=== PATIENT | male | born 1990 | race Caucasian/White ===

== ENCOUNTER 2016-10-16 19:57 | Emergency (ER) | payer MEDICAID ==
[~2016-10-16] VITALS: Ht 175.3 cm; Wt 127.0 kg
[~2016-10-16 19:57] MED LIST: CODE-54 PO; FAMO-119 PO; FAMO20TA5 PO; HYDR-1231 PO; LVT.025T PO; METH4TAB PO; ONDA8TAB13 PO; PRD20T PO; SCR1T PO; TRAM50TA2 PO
[2016-10-16] MEDS ORDERED: BACL10TA PO (20:22)
[2016-10-16] MEDS ORDERED: TRAM50TA2 PO (20:22)
[2016-10-16 20:37] LABS: BILIRUBIN,URINE NEGATIVE (NEGATIVE); KETONES,URINE NEGATIVE (NEGATIVE); LEUKOCYTE ESTERASE ,URINE NEGATIVE (NEGATIVE); NITRITE,URINE NEGATIVE (NEGATIVE); PH,URINE 5 (5-9); PROTEIN,URINE 2+ (NEGATIVE); UROBILINOGEN,URINE 1 MG/DL (NORMAL)
[2016-10-16 20:44] LABS: WBC,URINE RARE /HPF
[2016-10-16] MEDS ORDERED: KETOROLAC 60 MG/2 ML VIAL IM ONE (20:45)
[2016-10-16] MEDS ORDERED: ONDANSETRON 4 MG (ZOFRAN) ORAL DISSOLVE TAB SL ONE (20:45)
--- NOTE | 2016-10-16 21:11 | Diagnostic Imaging Report ---
INDICATION: Fever and bodyaches and cough PA and lateral chest obtained at 9:07 p.m. Heart and mediastinal silhouette are normal in appearance. The lungs are clear. There is no pneumothorax or pleural fluid. IMPRESSION: Negative chest. Dictated by: Dictated on workstation # [id number]
[2016-10-16] MEDS ORDERED: AZITHROMYCIN 250 MG TAB (ZITHROMAX) PO ONE (21:30)
[2016-10-16] MEDS ORDERED: AZIT250T5 PO (21:35)
[2016-10-16] MEDS ORDERED: ONDA4TAB8 SL (21:35)
--- NOTE | 2016-10-16 21:35 | ED General ---
General Chief Complaint: General Problems/Pain Stated Complaint: CP/SEIZURE LIKE ACTIVITY Nursing Triage Note: GENERALIZED BODY ACHE Nursing Sepsis Screen: No Definite Risk Source of Information: Patient Exam Limitations: No Limitations History of Present Illness Time Seen by Provider: 20:20 Initial Comments This 26-year-old young man presents to the emergency room with complaints of headache, diffuse myalgia, cough, fatigue, and emesis. Symptoms started upon waking this morning. He is chilled and febrile. He took some Tylenol around 11 :30 but no other medications. He normally takes Ultram and baclofen for chronic pain but forgot to take it this morning. He is coughing up some thick green purulent sputum. Allergies and Home Medications Allergies Coded Allergies: No Known Allergies (Verified Allergy, Unknown, 11/04/05) Home Medications Albuterol Sulfate 1 Puff Puff, 1-4 PUFF IH Q4H PRN for SHORTNESS OF BREATH, #1 For wheezing, uncontrolled cough, or shortness of breath. Please provide education. Prescribed by: ANKITA GARCIA on 10/16/167 Azithromycin 250 Mg Tablet, 250 MG PO DAILY, #4 Prescribed by: ANKITA GARCIA on 10/16/165 Baclofen 10 Mg Tablet, 1 TAB PO UD, #90 (Reported) Ondansetron 4 Mg Tab.rapdis, 4 MG SL Q4H PRN for NAUSEA-1ST LINE, #10 Prescribed by: ANKITA GARCIA on 10/16/165 Tramadol HCl 50 Mg Tablet, 1 TAB PO UD, #60 (Reported) Constitutional: see HPI EENTM: no symptoms reported Respiratory: see HPI Cardiovascular: no symptoms reported Gastrointestinal: see HPI Genitourinary: no symptoms reported Musculoskeletal: see HPI Skin: no symptoms reported Psychiatric/Neurological: See HPI, Headache Hematologic/Lymphatic: No Symptoms Reported Past Zvxiyaw-Vnhcpv-Nfcyiq Hx Patient Social History Alcohol Use: Rarely Uses Recreational Drug Use: No Type Used: Cigarettes, Smokeless Tobacco Recent Foreign Travel: No Contact w/Someone Who Travel: No Recent Infectious Disease Expo: No Recent Hopitalizations: No Immunizations Up To Date Tetanus Booster (TDap): Unknown Seasonal Allergies Seasonal Allergies: No Surgeries HX Surgeries: Yes (HERNIA REPAIR) Respiratory Hx Respiratory Disorders: No Cardiovascular Hx Cardiac Disorders: No Neurological Hx Neurological Disorders: No Reproductive System Hx Reproductive Disorders: No Genitourinary Hx Genitourinary Disorders: No Gastrointestinal Hx Gastrointestinal Disorders: No Musculoskeletal Hx Musculoskeletal Disorders: Yes Musculoskeletal Disorders: Arthritis, Chronic Back Pain Endocrine Hx Endocrine Disorders: No HEENT HX ENT Disorders: No Cancer Hx Cancer: No Psychosocial Hx Psychiatric Problems: No Integumentary HX Skin/Integumentary Disorder: No Blood Transfusions Hx Blood Disorders: No Family Medical History Significant Family History: No Pertinent Family Hx Physical Exam Vital Signs Vital Sign - Last 12Hours 10/16/16 20:22 Temp 101.1 Pulse 101 Resp 18 B/P (MAP) 145/98 Pulse Ox 98 O2 Delivery Room Air Capillary Refill : Less Than 3 Seconds General Appearance: No Apparent Distress, WD/WN HEENT: PERRL/EOMI, TMs Normal, Normal ENT Inspection, Pharynx Normal, Other ( thick green purulent sputum observed) Neck: Full Range of Motion, Normal Inspection, Other (no nuchal rigidity) Respiratory: Lungs Clear, Normal Breath Sounds, No Accessory Muscle Use, No Respiratory Distress Cardiovascular: Regular Rate, Rhythm, No Edema, No Murmur Gastrointestinal: Normal Bowel Sounds, Non Tender, Soft Back: Normal Inspection Extremity: Normal Inspection, No Pedal Edema Neurologic/Psychiatric: Alert, Oriented x3, No Motor/Sensory Deficits, Normal 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/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, 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 Norm as Tested Skin: Normal Color, Warm/Dry Progress/Results/Core Measures Results/Orders Lab Results Laboratory Tests Test 10/16/16 20:24 10/16/16 20:37 Range/Units Urine Color YELLOW Urine Clarity CLEAR Urine pH 5 5-9 Urine Specific [place] 1.025 H 1.016-1.022 Urine Protein 2+ H NEGATIVE Urine Glucose (UA) NEGATIVE NEGATIVE Urine Ketones NEGATIVE NEGATIVE Urine Nitrite NEGATIVE NEGATIVE Urine Bilirubin NEGATIVE NEGATIVE Urine Urobilinogen 1 NORMAL MG/DL Urine Leukocyte Esterase NEGATIVE NEGATIVE Urine RBC (Auto) NEGATIVE NEGATIVE Urine RBC NONE /HPF Urine WBC RARE /HPF Urine Crystals NONE /LPF Urine Bacteria NEGATIVE /HPF Urine Casts NONE /LPF Urine Mucus NEGATIVE /LPF Urine Culture Indicated NO Group A Streptococcus Screen NEGATIVE NEGATIVE Micro Results Microbiology 10/16/16 Influenza Types A,B Antigen (MARY ANNE) - Final, Complete My Orders Orders - ANKITA ESTEBAN MD Ua Culture If Indicated (10/16/16 20:26) Influenza A And B Antigens (10/16/16 20:26) Ketorolac Injection (Toradol Injection) (10/16/16 20:45) Ondansetron Oral Dissolve Tab (Zofran (10/16/16 20:45) Rapid Strep A Screen (10/16/16 20:40) Chest Pa/Lat (2 View) (10/16/16 20:40) Azithromycin Tablet (Zithromax Tablet) (10/16/16 21:30) Medications Given in ED Current Medications Medications Dose Ordered Sig/Rekha Route Start Time Stop Time Status Last Admin Dose Admin Azithromycin 500 mg ONCE ONCE PO 10/16/16 21:30 10/16/16 21:31 DC 10/16/16 21:37 500 MG Ketorolac Tromethamine 60 mg ONCE ONCE IM 10/16/16 20:45 10/16/16 20:46 DC 10/16/16 20:45 60 MG Ondansetron HCl 8 mg ONCE ONCE SL 10/16/16 20:45 10/16/16 20:46 DC 10/16/16 20:44 8 MG Vital Signs/I&O Vital Sign - Last 12Hours 10/16/16 10/16/16 10/16/16 20:22 20:45 21:43 Temp 101.1 101.1 99.0 Pulse 101 98 Resp 18 18 B/P (MAP) 145/98 Pulse Ox 98 99 O2 Delivery Room Air Blood Pressure Mean: 114 Progress Note : Progress Note Rapid strep, influenza screen, and chest x-ray were all normal. Although there was no evidence for pneumonia on the chest x-ray, patient was coughing up very thick green purulent-appearing sputum. For this reason azithromycin was initiated. An inhaler and Zofran were prescribed. Toradol was administered for pain and fever. Zofran was administered for nausea. Diagnostic Imaging Diagonstic Imaging: Xray Plain Films/CT/US/NM/MRI: chest Comments Chest x-ray viewed by me and report reviewed. See report below: NAME: DARLIN MARTINEZ [facility] REC#: [id number] PT STATUS: REG ER : 1990 PHYSICIAN: ANKITA ESTEBAN MD ADMIT DATE: 10/16/16/ER Signed Date of Exam: 10/16/16 CHEST PA/LAT (2 VIEW) INDICATION: Fever and bodyaches and cough PA and lateral chest obtained at 9:07 p.m. Heart and mediastinal silhouette are normal in appearance. The lungs are clear. There is no pneumothorax or pleural fluid. IMPRESSION: Negative chest. Dictated by: Dictated on workstation # [id number] Dict: 10/16/162106 Trans: 10/16/162118 KIM [id number] Interpreted by: KJ JARA MD Electronically signed by:KJ JARA MD 10/16/162118 Departure Impression Impression: Primary Impression: Acute bronchitis Qualified Codes: J20.9 - Acute bronchitis, unspecified Additional Impressions: Flu-like symptoms Nausea and vomiting Qualified Codes: R11.2 - Nausea with vomiting, unspecified Condition: Improved Departure-Patient Inst. Decision time for Depature: 21:31 [facility] Physician Patient Instructions: Acute Bronchitis in Adults Add. Discharge Instructions: Drink plenty of clear liquids. Gradually advance your diet with small quantities of bland food as tolerated. Use Zofran (ondansetron) dissolved under the tongue every 4 hours as needed for nausea. Complete the additional 4 days of antibiotics as prescribed. Return to emergency room if symptoms worsen. Do not return to work or school until fever free for 24 hours. All discharge instructions reviewed with patient and/or family. Voiced understanding. Scripts Albuterol Sulfate (PROAIR HFA) 1 Puff Puff 1-4 PUFF IH Q4H Y for SHORTNESS OF BREATH, #1 PUFF For wheezing, uncontrolled cough, or shortness of breath. Please provide education. Prov: ANKITA ESTEBAN MD 10/16/16 Ondansetron (Zofran Odt) 4 Mg Tab.rapdis 4 MG SL Q4H Y for NAUSEA-1ST LINE, #10 TAB Prov: ANKITA ESTEBAN MD 10/16/16 Azithromycin (Azithromycin) 250 Mg Tablet 250 MG PO DAILY, #4 TAB Prov: ANKITA ESTEBAN MD 10/16/16 Work/School Note: Work Release Form Date Seen in the Emergency Department: Oct 16, 2016 Return to Work: Oct 18, 2016 Restrictions: Return-No Fever (24hrs) ANKITA ESTEBAN MD Oct 16, 2016 21:35
[2016-10-16] MEDS ORDERED: RT-ALBUINH IH (21:37)
[2016-10-16 21:43] VITALS: BP 135/65
== END 2016-10-16 21:43 | disposition home or self-care (01) ==
LOC: EDUNIT# 19:57 → ER 19:58
DX: J20.9 Acute bronchitis, unspecified (principal); J10.2 Influenza due to other identified influenza virus with gastrointestinal manifestations; F17.210 Nicotine dependence, cigarettes, uncomplicated
CPT/HCPCS: 71020; 81000; 87430; 87804; 96372; 99282

== ENCOUNTER 2017-04-08 16:08 | Emergency (ER) | payer MEDICAID ==
[~2017-04-08] VITALS: Ht 182.9 cm; Wt 104.3 kg
[~2017-04-08 16:08] MED LIST changes: +AZIT250T5 PO; +BACL10TA PO; +ONDA4TAB8 SL; +RT-ALBUINH IH
--- OUTSIDE RECORDS SUMMARY | 2017-04-08 16:23 | XMS REPORT | Clinical Summary ---
Author Author [facility] Organization [facility] Address Unknown Phone Unavailable Care Team Providers Care Fur Feeder Name Role Phone PCP Unavailable Source Comments Some departments are not documenting in the electronic medical record. If you do not see the information that you expected, contact Release of Information in the Health Information Management department at [phone] for further assistance in locating additional records.[facility] Allergies No Known Allergies Current Medications Prescription Sig. Disp. Refills Start End Date Status Date trazodone (DESYREL) 100 At Bedtime Daily. 09/03/19 Active mg tablet 08 lithium carbonate SR Twice Daily. 09/03/19 Active (ESKALITH CR) 450 mg 08 tablet quetiapine (SEROQUEL) 50 Daily With Breakfast. 09/03/19 Active mg tablet 08 quetiapine (SEROQUEL) 100 At Bedtime Daily. 09/03/19 Active mg tablet 08 montelukast (SINGULAIR) At Bedtime Daily. 09/03/19 Active 10 mg tablet 08 levothyroxine (SYNTHROID) Daily With Breakfast. 09/03/19 Active 25 mcg tablet 08 quetiapine (SEROQUEL) 25 Take 2 Tabs by mouth 30 0 09/09/19 Active mg tablet Daily. 08 divalproex ER (DEPAKOTE Take 1 Tab by mouth Twice 60 0 09/09/19 Active ER) 500 mg tablet Daily. 08 divalproex ER (DEPAKOTE Take 1 Tab by mouth 30 0 09/09/19 Active ER) 250 mg tablet Daily. 08 trazodone (DESYREL) 100 Take 1 Tab by mouth At 30 0 09/09/19 Active mg tablet Bedtime Daily. 08 lithium carbonate SR Take 1 Tab by mouth Twice 60 0 09/09/19 Active (LITHOBID) 450 mg tablet Daily. 08 quetiapine (SEROQUEL) 25 Take 2 Tabs by mouth 60 0 //20 Active mg tablet Daily. 08 quetiapine (SEROQUEL) 100 Take 1 Tab by mouth At 30 0 03/04/20 Active mg tablet Bedtime Daily. 08 loratadine (CLARITIN) 10 Take 1 Tab by mouth 30 0 //20 Active mg tablet Daily. 08 montelukast (SINGULAIR) Take 1 Tab by mouth At 30 0 //20 Active 10 mg tablet Bedtime Daily. 08 levothyroxine (SYNTHROID) Take 1 Tab by mouth 30 0 20 Active 25 mcg tablet Daily. 08 Active Problems Problem Noted Date Mood disorder (HCC) 09/09/2007 ADHD 09/09/2007 Family History Medical History Relation Name Comments Depression Mother Depression Sister Relation Name Status Comments Mother Sister Social History Tobacco Use Types Packs/Day Years Used Date Never Smoker Alcohol Use Drinks/Week oz/Week Comments No Sex Assigned at Date Recorded Not on file Last Filed Vital Signs Vital Sign Reading Time Taken Blood Pressure 131/74 09/09/2007 8:00 AM [employer] Pulse 108 09/09/2007 8:00 AM [employer] Temperature 36.7 C (98.1 F) 09/09/2007 8:00 AM [employer] Respiratory Rate - - Oxygen Saturation - - Inhaled Oxygen - - Concentration Weight 90.7 kg (200 lb) 09/03/2007 2:00 PM [employer] Height 168.9 cm (5' 6.5") 09/03/2007 2:00 PM [employer] Body Mass Index 31.8 09/03/2007 2:00 PM [employer] Plan of Treatment Health Maintenance Due Date Last Done Comments PHYSICAL (COMPREHENSIVE) 1999 EXAM PERTUSSIS VACCINE 2003 TETANUS VACCINE 2009 INFLUENZA VACCINE 04/07/2017 Results Not on filefrom Last 3 Months
--- OUTSIDE RECORDS SUMMARY | 2017-04-08 16:24 | XMS REPORT ---
Author Author YUNIEL SEGURA Organization [facility] Address [address] [place] [address] Care Team Providers Care Member Of Technical Staff Name Role Phone YUNIEL SEGURA Unavailable PROBLEMS Type Condition ICD9-CM Code [id number] Code Onset Dates Condition Status SNOMED Code Problem Lumbago with sciatica, right side M54.41 Active 269593853 Problem Lumbago with sciatica, left side M54.42 Active 685449483 ALLERGIES No Information SOCIAL HISTORY Never Assessed PLAN OF CARE VITAL SIGNS MEDICATIONS Medication Instructions Dosage Frequency Start Date End Date Duration Status Tramadol HCl 50 mg Orally 4 times a day TAKE ONE TABLET 6h Sep, 28 days Active RESULTS No Results PROCEDURES No Known procedures IMMUNIZATIONS No Known Immunizations MEDICAL (GENERAL) HISTORY Type Description Date Medical History Hypothyroidism Medical History back pain Medical History attention deficit hyperactivity disorder Medical History hernia as a child Medical History Bi-polar dx Surgical History hernia surgery as a child Hospitalization History hernia surgery as a child Hospitalization History chest pain 2014
--- OUTSIDE RECORDS SUMMARY | 2017-04-08 16:24 | XMS REPORT ---
Author Author YUNIEL SEGURA [facility] Address [address] [place] [address] Care Team Providers Care Math Coach Name Role Phone YUNIEL SEGURA Unavailable PROBLEMS Type Condition ICD9-CM Code [id number] Code Onset Dates Condition Status SNOMED Code Problem Lumbago with sciatica, right side M54.41 Active 086531627 Problem Lumbago with sciatica, left side M54.42 Active [id number] ALLERGIES Unknown Allergies SOCIAL HISTORY No smoking Hx information available PLAN OF CARE VITAL SIGNS MEDICATIONS Medication Instructions Dosage Frequency Start Date End Date Duration Status Tramadol HCl 50 mg Orally 4 times a day TAKE ONE TABLET 6h 28 days Active RESULTS No Results PROCEDURES No Known procedures IMMUNIZATIONS No Known Immunizations
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
[2017-04-08] MEDS ORDERED: fentaNYL INJECTION 100 MCG/2 ML AMP IVP ONE (16:45)
[2017-04-08 16:50] LABS: BASOPHILS # (AUTO) 0.1 10^3/uL (0.0-0.1); BASOPHILS % (AUTO) 1 % (0-10); EOSINOPHILS # (AUTO) 0.2 10^3/uL (0.0-0.3); EOSINOPHILS % (AUTO) 2 % (0-10); LYMPHOCYTES % (AUTO) 32 % (12-44); MEAN CORPUSCULAR HEMOGLOBIN 28 PG (25-34); MEAN CORPUSCULAR HGB CONC 35 G/DL (32-36); MEAN CORPUSCULAR VOLUME 79 FL (80-99); MEAN PLATELET VOLUME 11.2 FL (7.4-10.4); MONOCYTES # (AUTO) 0.7 X 10^3 (0.0-1.0); MONOCYTES % (AUTO) 8 % (0-12); NEUTROPHILS # (AUTO) 5.4 X 10^3 (1.8-7.8); NEUTROPHILS % (AUTO) 58 % (42-75); PLATELET COUNT 202 10^3/uL (130-400); RED BLOOD COUNT 5.61 10^6/uL (4.35-5.85); RED CELL DISTRIBUTION WIDTH 13.1 % (10.0-14.5); WHITE BLOOD COUNT 9.3 10^3/uL (4.3-11.0)
[2017-04-08 17:12] LABS: ALANINE AMINOTRANSFERASE 36 U/L (0-55); ALBUMIN 4.2 GM/DL (3.2-4.5); ANION GAP 11 MMOL/L (5-14); ASPARTATE AMINO TRANSFERASE 20 U/L (5-34); BILIRUBIN,TOTAL 1.1 MG/DL (0.1-1.0); BLOOD UREA NITROGEN 8 MG/DL (7-18); BUN/CREATININE RATIO 8; CALCIUM 9.6 MG/DL (8.5-10.1); CARBON DIOXIDE 22 MMOL/L (21-32); CHLORIDE 108 MMOL/L (98-107); GFR ESTIMATED > 60; GLUCOSE 121 MG/DL (70-105); POTASSIUM 3.6 MMOL/L (3.6-5.0); SODIUM 141 MMOL/L (135-145); TOTAL PROTEIN 7.9 GM/DL (6.4-8.2)
--- NOTE | 2017-04-08 17:19 | Diagnostic Imaging Report ---
PROCEDURE: CT head and CT cervical spine without contrast. TECHNIQUE: Multiple contiguous axial images were obtained through the brain and cervical spine without the use of intravenous contrast. Sagittal and coronal reformations through the cervical spine were then performed. INDICATION: Injury. CT HEAD: There is no intracranial hemorrhage, edema or mass effect. The brain parenchyma and park-white matter differentiation are preserved. No extra-axial fluid collection is seen. The calvarium, the paranasal sinuses and orbits appear grossly unremarkable. CT CERVICAL SPINE: There is satisfactory alignment of the posterior spinal line and the lateral masses of C1 and C2. The alignment of the atlanto-occipital joint is satisfactory. Straightening of the lordotic curvature is probably positional. There is slight right convexity curvature in the cervical spine, most likely positional. The disc heights are preserved. No significant osteophyte formation is seen. No fracture seen. IMPRESSION: CT HEAD: No intracranial hemorrhage. CT CERVICAL SPINE: No fracture seen. Dictated by: Dictated on workstation # [id number]
--- NOTE | 2017-04-08 17:32 | Diagnostic Imaging Report ---
PROCEDURE: CT chest, abdomen, and pelvis without contrast. TECHNIQUE: Multiple contiguous axial images were obtained through the chest, abdomen, and pelvis without the use of intravenous contrast. INDICATION: Fall. CT CHEST: The lungs demonstrate no significant consolidation, mass or suspicious nodule. There is no pleural or pericardial effusion. The mediastinum demonstrates no hemorrhage, mass or significant lymphadenopathy. No axillary lymphadenopathy. The thoracic aorta is normal in caliber. The contour of the thoracic aorta appears unremarkable. The osseous structures appear grossly unremarkable. CT ABDOMEN AND PELVIS: There is slight heterogeneity and noise in the epaen-qx-zlsz, particularly within the upper abdomen related to the position of the arms adjacent to the body as the patient was unable to raise his arms. There are scattered calcified granulomas in the liver. There is suggestion of fatty infiltration in the liver. No perihepatic or perisplenic hematomas. The pancreas and the adrenals and the gallbladder appear unremarkable for an unenhanced exam. No urinary tract stones or hydronephrosis is seen. No hematoma around the kidneys or retroperitoneal hematoma identified. The abdominal aorta is normal in caliber. The appendix is normal. There is no bowel obstruction. There is no peritoneal hematoma or free fluid seen. The urinary bladder appears unremarkable. The osseous structures demonstrate mild sclerotic changes along the anterior margin of the femoral head and neck junction which appears to be protruding anteriorly. This is an anatomic variant that could correlate with femoral acetabular impingement (CAM type). In addition, there is mild degenerative change and vacuum phenomenon at the SI joints. IMPRESSION: CT CHEST: Unremarkable exam. CT ABDOMEN AND PELVIS: 1. No evidence of a fluid collection or hemorrhage in the peritoneal cavity or around the solid organs. 2. The anterior margin of the femoral head and neck junction is protruding anteriorly bilaterally and has sclerotic changes. The findings, in the appropriate clinical setting, could correlate with CAM type femoral acetabular impingement. Dictated by: Dictated on workstation # [id number]
[2017-04-08] MEDS ORDERED: KETOROLAC 30 MG/ML VIAL IVP ONE (17:45)
[2017-04-08 17:51] LABS: KETONES,URINE 1+ (NEGATIVE); LEUKOCYTE ESTERASE ,URINE 1+ (NEGATIVE); NITRITE,URINE NEGATIVE (NEGATIVE); PH,URINE 5 (5-9); PROTEIN,URINE 3+ (NEGATIVE); UROBILINOGEN,URINE 1 MG/DL (NORMAL)
[2017-04-08 18:05] LABS: CALCIUM OXALATE CRYSTALS,UR LARGE /LPF
[2017-04-08] MEDS ORDERED: NAPR500T PO (18:15)
[2017-04-08 18:19] VITALS: BP 130/92
[2017-04-09 07:13] LABS: BILIRUBIN,URINE 1+ (NEGATIVE)
== END 2017-04-08 18:19 | disposition home or self-care (01) ==
LOC: EDUNIT# 16:08 → ER 16:11
DX: S28.0XXA Crushed chest, initial encounter (principal); W23.1XXA Caught, crushed, jammed, or pinched between stationary objects, initial encounter
CPT/HCPCS: 36415; 70450; 71250; 72125; 74176; 80053; 80306; 81000; 85025; 99282

== ENCOUNTER 2018-08-29 20:38 | Emergency (ER) | payer MEDICAID ==
[~2018-08-29] VITALS: Ht 177.8 cm; Wt 99.8 kg
[~2018-08-29 20:38] MED LIST changes: +AZIT250T12 PO; -AZIT250T5 PO; +NAPR-1071 PO
--- NOTE | 2018-08-29 20:59 | ED Fall/Injury ---
General Chief Complaint: Trauma-Non Activation Stated Complaint: HEAD INJ, LT HAND LAC, CONFUSED, MEMORY LOSS Source: patient, family, other Exam Limitations: no limitations History of Present Illness Date Seen by Provider: Aug 29, 2018 Time Seen by Provider: 20:42 Initial Comments The patient presents to ER by private conveyance with his girlfriend and another friend with chief complaint that they were all the house and he was using a kitchen knife to separate some frozen hamburger patties when he accidentally ran the tip of the blade through the base of his thumb causing a shallow laceration about 1 inch long. His gentleman friend states that they did not clean the wound but he did sealed up with some superglue because is what he always does for his wounds. He was hemostatic at least at the time he was done gluing it. She does not recall the last time he had a tetanus shot. They took him into the bathroom and they said that he looked at the wound and went white as a sheet and fell straight backwards passing out. He struck his head against the bathtub and has a knot on the right rear of his parietal scalp. They've not given him anything for pain. He's now disoriented does not remember cutting his hand or passing out and very confused. They decided to bring him out to have him examined. He does not take any medications. He is disabled for learning disability. Family said he was only unconscious for about 2-5 minutes. Allergies and Home Medications Allergies Coded Allergies: No Known Allergies (Verified Allergy, Unknown, 11/04/05) Home Medications Albuterol Sulfate 1 Puff Puff, 1-4 PUFF IH Q4H PRN for SHORTNESS OF BREATH For wheezing, uncontrolled cough, or shortness of breath. Please provide education. Prescribed by: ANKITA GARCIA on 10/16/162136 Azithromycin 250 Mg Tablet, 250 MG PO DAILY Prescribed by: ANKITA GARCIA on 10/16/162134 Baclofen 10 Mg Tablet, 1 TAB PO UD, (Reported) Naproxen 500 Mg Tablet, 500 MG PO BID PRN for PAIN-MODERATE Prescribed by: LEORA BAER on 04/08/171814 Ondansetron 4 Mg Tab.rapdis, 4 MG SL Q4H PRN for NAUSEA-1ST LINE Prescribed by: ANKITA GARCIA on 10/16/162134 Tramadol HCl 50 Mg Tablet, 1 TAB PO UD, (Reported) Patient Home Medication List Home Medication List Reviewed: Yes Review of Systems Review of Systems Constitutional: No chills, No diaphoresis Eyes: Denies Blindness, Denies Blurred Vision, Denies Drainage Ears, Nose, Mouth, Throat: denies ear pain, denies ear discharge Respiratory: No cough, No short of breath Cardiovascular: No chest pain, No Hx of Intervention Gastrointestinal: No abdominal pain, No constipation, No nausea Genitourinary: No discharge, No dysuria Musculoskeletal: No back pain, No joint pain Past Odxbrle-Jsmthx-Kachaf Hx Patient Social History Alcohol Use: Occasionally Uses Alcohol Beverage of Choice: Beer Recreational Drug Use: No Smoking Status: Former Smoker Type Used: Smokeless Tobacco Recent Foreign Travel: No Contact w/Someone Who Travel: No Recent Hopitalizations: No Immunizations Up To Date Tetanus Booster (TDap): Unknown Seasonal Allergies Seasonal Allergies: No Past Medical History Surgeries: Yes (HERNIA REPAIR) Respiratory: No Cardiac: No Neurological: No Reproductive Disorders: No Gastrointestinal: No Musculoskeletal: Yes Arthritis, Chronic Back Pain Endocrine: No Cancer: No Psychosocial: No Integumentary: No Blood Disorders: No Family Medical History No Pertinent Family Hx Physical Exam Vital Signs Vital Signs - First Documented 08/29/18 20:45 Temp 98.4 Pulse 86 Resp 20 B/P (MAP) 149/93 (111) Pulse Ox 97 O2 Delivery Room Air Capillary Refill : Height, Weight, BMI Height: 6'9.00" Weight: 230lbs. oz. 104.812223fq; 30.68 BMI Method:Stated General Appearance: WD/WN, no apparent distress HEENT: PERRL/EOMI, normal ENT inspection, TMs normal, pharynx normal, other ( modest size 2-3 cm hematoma on the right posterior parietal scalp without laceration.) Neck: non-tender, full range of motion, normal inspection Cardiovascular: normal peripheral pulses, regular rate, rhythm, no edema Respiratory: chest non-tender, lungs clear, normal breath sounds, no respiratory distress, no accessory muscle use Peripheral Pulses: 2+ Radial Pulses (R), 2+ Radial Pulses (L) Gastrointestinal: non tender, soft Extremities: normal range of motion, non-tender, normal inspection, normal capillary refill Neurologic/Psychiatric: mingle operator II-XII nml as tested, no motor/sensory deficits, alert, normal mood/affect, oriented x 3, other (mild retrograde amnesia for the past hour.) Skin: normal color, warm/dry Annalise Coma Score Best Eye Response: (4) Open Spontaneously Best Verbal Response: (5) Oriented Best Motor Response: (6) Obeys Commands Annalise Total: 15 Progress/Results/Core Measures Results/Orders My Orders Orders - LEORA BAER Ct Head/Cervical Spine Wo (08/29/18 20:51) Dipht,Pertuss(Acell),Tet Adult (Boostrix (08/29/18 21:00) Sulfamethoxazole/Trimet Ds Tab (Bactrim (08/29/18 21:00) Vital Signs/I&O 08/29/18 20:45 Temp 98.4 Pulse 86 Resp 20 B/P (MAP) 149/93 (111) Pulse Ox 97 O2 Delivery Room Air Progress Progress Note : Time: 20:50 Progress Note Probably has a concussion with some retrograde amnesia. We'll obtain a CT of his head and neck to rule out intracranial hemorrhage. His hand is coated in superglue over the laceration. Had quite a bit of dirt and contamination. We'll give him a tetanus shot put him on some Bactrim and encourage him to follow-up with her PCP in O week for reexamination of that wound. We've offered an ice pack for his hematoma on his head and he has declined. Diagnostic Imaging Diagonstic Imaging: CT (noncontrast) Plain Films/CT/US/NM/MRI: c-spine, head Comments [facility] [place], [place] NAME: DARLIN MARTINEZ [facility] REC#: [id number] PT STATUS: REG ER : 1990 PHYSICIAN: LEORA BAER MD ADMIT DATE: 08/29/18/ER Draft Date of Exam:08/29/18 CT HEAD/CERVICAL SPINE WO PROCEDURE: CT head and CT cervical spine without contrast. TECHNIQUE: Multiple contiguous axial images were obtained through the brain and cervical spine without the use of intravenous contrast. Sagittal and coronal reformations through the cervical spine were then performed. INDICATION: Fall with trauma to the head. Memory loss. Confusion. COMPARISON: 04/08/2017 FINDINGS: CT head: Ventricles and cortical sulci are normal in size and contour. There is no midline shift or mass-effect. No acute intra-axial hemorrhage is seen. There are no abnormal areas of increased or decreased density to suggest acute hemorrhage or edema. No extra-axial masses or collections are present. Small soft tissue hematoma is noted posterior laterally in the right. The underlying bony calvarium is intact. The visualized paranasal sinuses are unremarkable. The mastoid air cells are clear. CT cervical spine: There is straightening with slight reversal of the normal lordotic curvature of the cervical spine. Findings may be related to positioning, as well as spasm. There is no significant anteroretrolisthesis. There is no evidence of jumped facets. Vertebral body heights are maintained. There is no evidence of acute fracture. No bony fragments are seen within the spinal canal. No significant degenerative changes are identified. Pre-and paravertebral soft tissue structures are unremarkable. Included portions of the lung apices show no additional acute abnormalities. IMPRESSION: 1. No acute intracranial abnormality. No CT evidence of mass, acute infarct or intracranial hemorrhage. 2. No acute fracture or dislocation of the cervical spine. Dictated on workstation # [id number] Dict: 08/29/182125 Trans: 08/29/18 213 [facility] [id number] Interpreted by: ANDREINA HOUSTON MD Electronically signed by: Reviewed: Reviewed by Me Departure Impression Primary Impression: Concussion Qualified Codes: S06.0X1A - Concussion with loss of consciousness of 30 minutes or less, initial encounter Additional Impressions: Retrograde amnesia Hematoma of scalp Qualified Codes: S00.03XA - Contusion of scalp, initial encounter Laceration of left hand Qualified Codes: S61.412A - Laceration without foreign body of left hand, initial encounter Disposition: 01 HOME, SELF-CARE Condition: Stable Departure-Patient Inst. Decision time for Depature: 21:59 Referrals: [facility] (PCP/Family) Primary Care Physician Patient Instructions: Concussion, Adult (DC) Add. Discharge Instructions: Keep the wound clean with regular soap and water only. No alcohol, hydrogen peroxide or iodine. 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 Be on the lookout for the symptoms of a concussion which include: Headache, blurry vision, tiredness, off balance, nausea or vomiting. If you do have these symptoms then stop which are doing takes and appropriate Tylenol, Motrin or water and get some sleep. If you have nausea you can take Zofran 1 tablet every 6 hours as needed. Do not resume that activity for 24 hours that you're doing prior to your symptoms coming up. If you have questions about concussion management follow-up with primary care. If your wound begins to look infected with discharge, increased swelling or redness or you start to develop a fever then you should follow-up with primary care to have the wound looked at again. All discharge instructions reviewed with patient and/or family. Voiced understanding. Scripts Ondansetron (Ondansetron Odt) 4 Mg Tab.rapdis 4 MG PO Q6H PRN for NAUSEA/VOMITING, #8 TAB 0 Refills Prov: LEORA BAER 08/29/18 Sulfamethoxazole/Trimethoprim (Bactrim Ds Tablet) 1 Each Tablet 1 EACH PO BID for 5 Days, #10 TAB 0 Refills Prov: LEORA BAER 08/29/18 LEORA BAER Aug 29, 2018 20:59
[2018-08-29] MEDS ORDERED: TRIM/SULFAMETH 160/800 (SEPTRA DS) TAB PO ONE (21:00)
[2018-08-29] MEDS ORDERED: TETANUS,DIPTH,PERTUSS P/F (BOOSTRIX) 0.5 ML VIAL IM ONE (21:00)
--- NOTE | 2018-08-29 21:34 | Diagnostic Imaging Report ---
PROCEDURE: CT head and CT cervical spine without contrast. TECHNIQUE: Multiple contiguous axial images were obtained through the brain and cervical spine without the use of intravenous contrast. Sagittal and coronal reformations through the cervical spine were then performed. INDICATION: Fall with trauma to the head. Memory loss. Confusion. COMPARISON: 04/08/2017 FINDINGS: CT head: Ventricles and cortical sulci are normal in size and contour. There is no midline shift or mass-effect. No acute intra-axial hemorrhage is seen. There are no abnormal areas of increased or decreased density to suggest acute hemorrhage or edema. No extra-axial masses or collections are present. Small soft tissue hematoma is noted posterior laterally in the right. The underlying bony calvarium is intact. The visualized paranasal sinuses are unremarkable. The mastoid air cells are clear. CT cervical spine: There is straightening with slight reversal of the normal lordotic curvature of the cervical spine. Findings may be related to positioning, as well as spasm. There is no significant anteroretrolisthesis. There is no evidence of jumped facets. Vertebral body heights are maintained. There is no evidence of acute fracture. No bony fragments are seen within the spinal canal. No significant degenerative changes are identified. Pre-and paravertebral soft tissue structures are unremarkable. Included portions of the lung apices show no additional acute abnormalities. IMPRESSION: 1. No acute intracranial abnormality. No CT evidence of mass, acute infarct or intracranial hemorrhage. 2. No acute fracture or dislocation of the cervical spine. Dictated by: Dictated on workstation # [id number]
[2018-08-29] MEDS ORDERED: SULF1TAB35 PO (22:01)
[2018-08-29] MEDS ORDERED: ONDA4TAB11 PO (22:01)
[2018-08-29 22:19] VITALS: BP 149/93
== END 2018-08-29 22:19 | disposition home or self-care (01) ==
LOC: EDUNIT# 20:38 → ER 20:40
DX: S06.0X1A Concussion with loss of consciousness of 30 minutes or less, initial encounter (principal); S61.412A Laceration without foreign body of left hand, initial encounter; R41.2 Retrograde amnesia; R40.2142 Coma scale, eyes open, spontaneous, at arrival to emergency department; R40.2252 Coma scale, best verbal response, oriented, at arrival to emergency department; R40.2362 Coma scale, best motor response, obeys commands, at arrival to emergency department; Z79.51 Long term (current) use of inhaled steroids; Z87.891 Personal history of nicotine dependence; Z98.890 Other specified postprocedural states; Z23 Encounter for immunization; W26.0XXA Contact with knife, initial encounter; W01.198A Fall on same level from slipping, tripping and stumbling with subsequent striking against other object, initial encounter; Y92.002 Bathroom of unspecified non-institutional (private) residence as the place of occurrence of the external cause
CPT/HCPCS: 70450; 72125; 90471; 90715

== ENCOUNTER 2018-12-08 10:59 | Emergency (ER) | payer MEDICAID ==
[~2018-12-08] VITALS: Ht 172.7 cm; Wt 108.9 kg
[~2018-12-08 10:59] MED LIST changes: +ONDA4TAB11 PO; +SULF1TAB35 PO
--- OUTSIDE RECORDS SUMMARY | 2018-12-08 11:04 | XMS REPORT ---
Author Author Migration, Doctor Organization [facility] Address Unknown Phone Unavailable Care Team Providers Care Alley Tender Name Role Phone Migration, Doctor Unavailable Unavailable PROBLEMS Type Condition ICD9-CM Code QDO65-TC Code Onset Dates Condition Status SNOMED Code Problem Hypertension, benign I10 Active 56913003 Problem Mood disorder F39 Active 31836551 Problem Lumbago with sciatica, left side M54.42 Active 455351585 Problem Lumbago with sciatica, right side M54.41 Active 330259581 Problem Anxiety F41.9 Active 89889865 ALLERGIES No Information ENCOUNTERS Encounter Location Date Diagnosis [place] [id number] [address] Sep, Mood disorder F39 [place] [address] [address] Aug, Mood disorder F39 [facility] [address] [address] Jun, Mood disorder F39 [facility] [address] [address] May, Anxiety F41.9 and Hypertension, benign I10 [facility] [address] [address] 13 May, 2018 Dysuria R30.0 and Acute urinary tract infection N39.0 [facility] [address] [address] 08 May, 2018 Lumbago with sciatica, left side M54.42 [facility] [address] [address] Mar, Lumbago with sciatica, left side M54.42 [facility] [address] [address] Feb, Lumbago with sciatica, left side M54.42 [facility] [address] [address] Feb, [facility] [address] [place] [phone] Feb, Encounter for dental examination Z01.20 [facility] [address] [place] [id number] [place] [address] Dec, Lumbago with sciatica, left side M54.42 [facility] [address] [place] [id number] [place] [address] May, Lumbago with sciatica, left side M54.42 ; Lumbago with sciatica, right side M54.41 and Encounter for immunization Z23 [facility] [address] [place] [id number] [place] [address] Apr, Lumbago with sciatica, left side M54.42 [facility] [address] [place] [phone] Apr, Dental caries K02.9 [facility] [address] [place] [address] Apr, [facility] [address] [place] [phone] Apr, Dental examination Z01.20 [facility] [address] [address] Feb, Lumbago with sciatica, right side M54.41 [facility] [address] [place] [id number] [place] [address] Jan, Lumbago with sciatica, right side M54.41 [facility] [address] [place] [address] Dec, Lumbago with sciatica, right side M54.41 [facility] [address] [place] [id number] [place] [address] November, Lumbago with sciatica, right side M54.41 [facility] [address] [id number] [place] [address] Oct, Lumbago with sciatica, left side M54.42 [facility] [address] [facility] [id number] [place] [address] Sep, [facility] [address] [id number] [place] [address] Aug, [facility] [address] [facility] [id number] [place] [address] Jul, [facility] [address] [facility] [id number] [place] [address] May, [facility] [address] [place] [address] Apr, [facility] [address] [facility] [id number] [place] [address] Mar, [facility] [address] [place] [id number] [place] [address] Feb, [facility] [address] [place] [id number] [place] [address] Jan, Low back pain M54.5 [facility] [address] [place] [id number] [place] [address] Dec, [facility] [address] [facility] [id number] [place] [address] November, [facility] [place] [facility] [address] [facility] [id number] [place] [address] Oct, [facility] [place] [facility] [address] [facility] [id number] [place] [address] Sep, [facility] [address] [place] [id number] [place] [address] Aug, Low back pain M54.5 [facility] [address] [address] 15 Jul, 2015 [facility] [address] [place] [address] Jun, [facility] [address] [place] [address] Apr, [facility] [address] [place] [id number] [place] [address] Feb, [facility] [address] [place] [id number] [place] [address] Jan, Hypertension 401.9 [facility] [address] [place] [id number] [place] [address] Jan, Hypertension 401.9 [facility] [address] [place] [id number] [place] [address] Dec, Diarrhea 787.91 and Hypertension 401.9 [facility] [address] [address] November, GERD (gastroesophageal reflux disease) 530.81 [facility] [address] [address] Oct, [facility] [address] [address] Oct, [facility] [address] [address] Sep, [facility] [address] [address] Sep, [facility] [address] [address] Aug, [facility] [address] [address] Aug, [facility] [address] [place] [address] May, [facility] [address] [id number] [place] [address] May, [facility] [place] [facility] [address] [id number] [place] [address] November, [facility] [place] [facility] [address] [id number] [place] [address] November, [facility] [place] [facility] [address] [id number] [place] [address] Oct, [facility] [place] [facility] [address] [id number] [place] [address] Oct, [facility] [place] [facility] [address] [id number] [place] [address] Aug, [facility] [place] [facility] [address] [id number] [place] [address] Aug, [facility] [address] [id number] [place] [address] Jun, [facility] [place] [facility] [address] [id number] [place] [address] Jun, [facility] [place] [facility] [address] [id number] [place] [address] Apr, [facility] [place] [facility] [address] [id number] [place] [address] Apr, [facility] [place] [facility] [address] [id number] [place] [address] Apr, [facility] [place] [facility] [address] [id number] [place] [address] Jan, [facility] [place] [facility] [address] [id number] [place] [address] Jan, [facility] [place] [facility] [address] [id number] [place] [address] November, [facility] [address] [facility] [id number] [address] Jun, [facility] [address] [address] Jun, [facility] [address] [facility] [id number] [address] May, [facility] [address] [place] [id number] [address] May, [facility] [address] [facility] [id number] [address] Apr, [facility] [address] [place] [id number] [address] Apr, IMMUNIZATIONS No Known Immunizations SOCIAL HISTORY Never Assessed REASON FOR VISIT [place] [place] VITAL SIGNS MEDICATIONS Medication Instructions Dosage Frequency Start Date End Date Duration Status tramadol 50 mg take 1 tablet by Oral route every 6 hours as needed PRN Must last 1 month Sep, Active Parafon Forte DSC 500 mg 1 tablet by Oral route 2 times per day PRN May, Active RESULTS No Results PROCEDURES No Known procedures INSTRUCTIONS MEDICATIONS ADMINISTERED No Known Medications MEDICAL (GENERAL) HISTORY Type Description Date Medical History Hypothyroidism Medical History back pain Medical History attention deficit hyperactivity disorder Medical History hernia as a child Medical History Bi-polar dx Surgical History hernia surgery as a child Hospitalization History hernia surgery as a child Hospitalization History chest pain 2014
--- OUTSIDE RECORDS SUMMARY | 2018-12-08 11:04 | XMS REPORT | Clinical Summary ---
Author Author [facility] Organization [facility] Address Unknown Phone Unavailable Care Team Providers Care Pediatric Clinical Nurse Specialist Name Role Phone Self, Referral PCP Unavailable Sha Denise DO Unavailable Source Comments Some departments are not documenting in the electronic medical record. If you d o not see the information that you expected, contact Release of Information in [facility] [employer] Information Management department at [phone] for further assistan ce in locating additional records.[facility] Allergies No Known Allergies Medications End Date Status Medication Sig Dispensed Refills Start Date Active trazodone (DESYREL) 100 At Bedtime 0 09/03/200 mg tablet Daily. 8 Active lithium carbonate SR Twice Daily. 0 (ESKALITH CR) 450 mg 8 tablet Active quetiapine (SEROQUEL) 50 Daily With 0 09/03/200 mg tablet Breakfast. 8 Active quetiapine (SEROQUEL) 100 At Bedtime 0 09/03/200 mg tablet Daily. 8 Active montelukast (SINGULAIR) At Bedtime 0 200 10 mg tablet Daily. 8 Active levothyroxine (SYNTHROID) Daily With 0 25 mcg tablet Breakfast. 8 Active quetiapine (SEROQUEL) 25 Take 2 Tabs 30 0 //200 mg tablet by mouth 8 Daily. Active divalproex ER (DEPAKOTE Take 1 Tab by 60 0 //200 ER) 500 mg tablet mouth Twice 8 Daily. Active divalproex ER (DEPAKOTE Take 1 Tab by 30 0 //200 ER) 250 mg tablet mouth Daily. 8 Active trazodone (DESYREL) 100 Take 1 Tab by 30 0 03/04/200 mg tablet mouth At 8 Bedtime Daily. Active lithium carbonate SR Take 1 Tab by 60 0 03/04/200 (LITHOBID) 450 mg tablet mouth Twice 8 Daily. Active quetiapine (SEROQUEL) 25 Take 2 Tabs 60 0 03/04/200 mg tablet by mouth 8 Daily. Active quetiapine (SEROQUEL) 100 Take 1 Tab by 30 0 03/04/200 mg tablet mouth At 8 Bedtime Daily. Active loratadine (CLARITIN) 10 Take 1 Tab by 30 0 03/04/200 mg tablet mouth Daily. 8 Active montelukast (SINGULAIR) Take 1 Tab by 30 0 03/04/200 10 mg tablet mouth At 8 Bedtime Daily. Active levothyroxine (SYNTHROID) Take 1 Tab by 30 0 03/04/200 25 mcg tablet mouth Daily. 8 Active Problems Problem Noted Date Mood disorder 09/09/2007 ADHD 09/09/2007 Family History Medical History Relation Name Comments Depression Mother Depression Sister Arthritis-osteo Neg Hx Arthritis-rheumatoid Neg Hx Asthma Neg Hx Cancer Neg Hx Diabetes Neg Hx Heart Failure Neg Hx High Cholesterol Neg Hx Hypertension Neg Hx Migraines Neg Hx Rashes/Skin Problems Neg Hx Seizures Neg Hx Stroke Neg Hx Thyroid Disease Neg Hx Relation Name Status Comments Mother Sister Social History Date Tobacco Use Types Packs/Day Years Used Never Smoker Alcohol Use Drinks/Week oz/Week Comments No Sex Assigned at Date Recorded Not on file Industry Job Start Date Occupation Not on file Not on file Not on file Travel End Travel History Travel Start No recent travel history available. Last Filed Vital Signs Time Taken Vital Sign Reading 09/09/2007 8:00 AM OBSTETRICAL NURSE Blood Pressure 131/74 09/09/2007 8:00 AM OBSTETRICAL NURSE Pulse 108 09/09/2007 8:00 AM OBSTETRICAL NURSE Temperature 36.7 C (98.1 F) - Respiratory Rate - - Oxygen Saturation - - Inhaled Oxygen - Concentration 09/03/2007 2:00 PM OBSTETRICAL NURSE Weight 90.7 kg (200 lb) 09/03/2007 2:00 PM OBSTETRICAL NURSE Height 168.9 cm (5' 6.5") 09/03/2007 2:00 PM OBSTETRICAL NURSE Body Mass Index 31.8 Plan of Treatment Health Maintenance Due Date Last Done Comments PHYSICAL (COMPREHENSIVE) 1999 EXAM HIV SCREENING 2007 DTAP/TDAP VACCINES (1 - 2010 Tdap) INFLUENZA VACCINE 04/07/2019 Results Not on filefrom Last 3 Months
--- OUTSIDE RECORDS SUMMARY | 2018-12-08 11:05 | XMS REPORT ---
Author Author YUNIEL SEGURA Organization [facility] Address [address] [place] [address] Care Team Providers Care Pipeline Controller Name Role Phone YUNIEL SEGURA Unavailable PROBLEMS Type Condition ICD9-CM Code IAU58-TO Code Onset Dates Condition Status SNOMED Code Problem Lumbago with sciatica, right side M54.41 Active 531722489 Problem Lumbago with sciatica, left side M54.42 Active 669289739 ALLERGIES No Information ENCOUNTERS Encounter Location Date Diagnosis [place] [address] [address] Mar, Lumbago with sciatica, left side M54.42 [place] [address] [address] Feb, Lumbago with sciatica, left side M54.42 [place] [address] [address] Feb, [facility] [address] [id number] Feb, Encounter for dental examination Z01.20 [place] [address] [address] Dec, Lumbago with sciatica, left side M54.42 [place] [address] [address] May, Lumbago with sciatica, left side M54.42 ; Lumbago with sciatica, right side M54.41 and Encounter for immunization Z23 [place] [address] [address] Apr, Lumbago with sciatica, left side M54.42 [facility] [address] [id number] Apr, Dental caries K02.9 [facility] [address] [place] [id number] [place] [address] Apr, [facility] [id number] [place] [id number] Apr, Dental examination Z01.20 [facility] [address] [place] [id number] [place] [address] Feb, Lumbago with sciatica, right side M54.41 [facility] [address] [place] [id number] [place] [address] Jan, Lumbago with sciatica, right side M54.41 [facility] [address] [place] [id number] [place] [address] Dec, Lumbago with sciatica, right side M54.41 [facility] [address] [place] [id number] [place] [address] November, Lumbago with sciatica, right side M54.41 [facility] [address] [place] [id number] [place] [address] Oct, Lumbago with sciatica, left side M54.42 [facility] [address] [address] Sep, [facility] [address] [place] [id number] [address] Aug, [facility] [address] [address] Jul, [facility] [address] [address] May, [facility] [address] [address] Apr, [facility] [address] [place] [id number] [address] Mar, [facility] [address] [facility] [id number] [place] [address] Feb, [facility] [address] [facility] [id number] [place] [address] Jan, Low back pain M54.5 [facility] [address] [facility] [id number] [place] [address], [place] [address] Dec, [facility] [address] [facility] [id number] [place] [address] November, [facility] [address] [facility] [id number] [place] [address], [place] [address] Oct, [facility] [address] [place] [address] Sep, [facility] [id number] [place] [address] Aug, Low back pain M54.5 [facility] [address] [place] [address] Jul, [facility] [address] [address] Jun, [facility] [address] [address] Apr, [facility] [address] [facility] [id number], [place] [address] Feb, [facility] [address] [facility] [id number] [address] Jan, Hypertension 401.[address] [facility] [address] [place] [id number] [address] Jan, Hypertension 401.9 [facility] [address] [place] [id number] [address] Dec, Diarrhea 787.91 and Hypertension 401.9 [facility] [place] [facility] [address] [address] November, GERD (gastroesophageal reflux disease) 530.81 [facility] [address] [address] 14 Oct, 2014 [facility] [address] [address] Oct, [facility] [address], [place] [address] Sep, [facility] [id number] [place] [address], [place] [address] Sep, [facility] [address] [place] [id number] [address] Aug, [facility] [id number] [place] [address] Aug, [facility] [address] [address] May, [facility] [address] [address] May, [facility] [address], [place] [address] November, [facility] [address] [address] November, [facility] [address], [place] [address] Oct, [facility] [address], [place] [address] Oct, [facility] [address], [place] [address] Aug, [facility] [address] [address] Aug, [facility] [address] [facility] [id number] [address] Jun, [facility] [address] [facility] [id number] [address] Jun, [facility] [address] [facility] [id number], [place] [address] Apr, [facility] [address] [facility] [id number], [place] [address] Apr, [facility] [address] [facility] [id number], [place] [address] Apr, [facility] [address] [facility] [id number] [place] [address] Jan, [facility] [address] [place] [id number] [address] Jan, [facility] [address], [place] [address] November, [facility] [address], [place] [address] Jun, [facility] [address], [place] [address] Jun, [facility] [address], [place] [address] May, [facility] [address], [place] [address] May, [facility] [address] [place] [id number] [address] Apr, [facility] [address], [place] [address] Apr, IMMUNIZATIONS No Known Immunizations SOCIAL HISTORY Never Assessed REASON FOR VISIT Controlled Med Refill PLAN OF CARE VITAL SIGNS MEDICATIONS Medication Instructions Dosage Frequency Start Date End Date Duration Status Tramadol HCl 50 MG Orally every 6 hrs 1 tablet as needed 6h November, 28 days Active RESULTS No Results PROCEDURES [...]
--- OUTSIDE RECORDS SUMMARY | 2018-12-08 11:05 | XMS REPORT ---
Author Author YUNIEL SEGURA Organization [facility] Address [address] [place] [address] Care Team Providers Care Director Of Psychiatry Name Role Phone YUNIEL SEGURA Unavailable PROBLEMS Type Condition ICD9-CM Code IEH48-FC Code Onset Dates Condition Status SNOMED Code Problem Lumbago with sciatica, right side M54.41 Active 325380123 Problem Lumbago with sciatica, left side M54.42 Active [id number] ALLERGIES No Information ENCOUNTERS Encounter Location Date Diagnosis [place] [address] [address] May, [facility] [address] [address] May, Lumbago with sciatica, left side M54.42 [place] [address] [address] Mar, Lumbago with sciatica, left side M54.42 [place] [address] [place] [id number] [place] [address] Feb, Lumbago with sciatica, left side M54.42 [facility] [address] [address] Feb, [facility] [address] [id number] Feb, Encounter for dental examination Z01.20 [facility] [address] [address] Dec, Lumbago with sciatica, left side M54.42 [facility] [address] [address] May, Lumbago with sciatica, left side M54.42 ; Lumbago with sciatica, right side M54.41 and Encounter for immunization Z23 [facility] [address] [address] Apr, Lumbago with sciatica, left side M54.42 [facility] [address] [place] [id number] [place] [id number] Apr, Dental caries K02.9 [facility] [address] [address] Apr, [facility] [address] [id number] Apr, Dental examination Z01.20 [facility] [address] [address] Feb, Lumbago with sciatica, right side M54.41 [place] [address] [address] Jan, Lumbago with sciatica, right side M54.41 [place] [address] [address] Dec, Lumbago with sciatica, right side M54.41 [facility] [address] [place] [id number] [place] [address] November, Lumbago with sciatica, right side M54.41 [facility] [address] [place] [id number] [place] [address] Oct, Lumbago with sciatica, left side M54.42 [facility] [address] [address] Sep, [facility] [address] [place] [id number] [place] [address] 13 Aug, 2016 [facility] [address] [address] Jul, [facility] [address] [id number] [place] [address] May, [facility] [place] [facility] [address] [id number] [place] [address] Apr, [facility] [place] [facility] [address] [id number] [place] [address] Mar, [facility] [place] [facility] [address] [id number] [place] [address] Feb, [facility] [address] [id number] [place] [address] Jan, Low back pain M54.5 [facility] [address] [id number] [place] [address] Dec, [facility] [address] [id number] [place] [address] November, [facility] [place] [facility] [address] [id number] [place] [address] Oct, [facility] [address] [id number] [place] [address] Sep, [facility] [place] [facility] [address] [id number] [place] [address] Aug, Low back pain M54.5 [facility] [address] [id number] [place] [address] Jul, [facility] [place] [facility] [address] [id number] [place] [address] Jun, [facility] [place] [facility] [address] [id number] [place] [address] Apr, [facility] [place] [facility] [address] [id number] [place] [address] Feb, [facility] [place] [facility] [address] [id number] [place] [address] Jan, Hypertension 401.9 [facility] [place] [facility] [address] [address] Jan, Hypertension 401.9 [facility] [address] [place] [id number] [address] Dec, Diarrhea 787.91 and Hypertension 401.9 [facility] [address] [place] [address] November, GERD (gastroesophageal reflux disease) 530.81 [facility] [address] [facility] [id number] [place] [address] Oct, [facility] [address] [place] [id number] [place] [address], [place] [address] Oct, [facility] [address] [address] Sep, [facility] [address] [place] [id number] [place] [address], [place] [address] Sep, [facility] [address] [address] Aug, [facility] [address] [address] Aug, [facility] [address] [address] May, [facility] [address] [address] May, [facility] [address] [address] November, [facility] [address] [place] [address] November, [facility] [address] [address] Oct, [facility] [address] [address] Oct, [facility] [place] [facility] [address] [id number] [place] [address] Aug, [facility] [place] [facility] [address] [id number] [place] [address] Aug, [facility] [place] [facility] [address] [facility] [id number] [place] [address] Jun, [facility] [place] [facility] [address] [id number] [place] [address] Jun, [facility] [place] [facility] [address] [id number] [place] [address] Apr, [facility] [place] [facility] [address] [id number] [place] [address] Apr, [facility] [place] [facility] [address] [id number] [place] [address] Apr, [facility] [place] [facility] [address] [id number] [place] [address] Jan, [facility] [place] [facility] [address] [id number] [place] [address] Jan, [facility] [place] [facility] [address] [id number] [place] [address] November, [facility] [place] [facility] [address] [id number] [address] Jun, [facility] [place] [facility] [address] [id number] [address] 14 Jun, 2010 [facility] [place] [facility] [address] [id number] [place] [address] 16 May, 2010 [facility] [place] [facility] [address] [id number] [place] [address] May, [facility] [place] [facility] [address] [facility] [id number] [place] [address] Apr, [facility] [place] [facility] [address] [facility] [id number] [place] [address] 14 Apr, 2010 IMMUNIZATIONS No Known Immunizations SOCIAL HISTORY Never [...]
--- OUTSIDE RECORDS SUMMARY | 2018-12-08 11:05 | XMS REPORT ---
Author Author YUNIEL SEGURA Organization [facility] Address [address] [place] [address] Care Team Providers Care Senior Mortgage Underwriter Name Role Phone YUNIEL SEGURA Unavailable PROBLEMS Type Condition ICD9-CM Code JHQ69-MW Code Onset Dates Condition Status SNOMED Code Problem Anxiety F41.9 Active 31221642 Problem Hypertension, benign I10 Active 54204247 Problem Lumbago with sciatica, right side M54.41 Active 153039845 Problem Lumbago with sciatica, left side M54.42 Active 460649672 ALLERGIES No Known Allergies ENCOUNTERS Encounter Location Date Diagnosis [place] [address] [address] Jun, [facility] [address] [place] [address] May, Anxiety F41.9 and Hypertension, benign I10 [facility] [address] [address] May, Dysuria R30.0 and Acute urinary tract infection N39.[address] [address] May, Lumbago with sciatica, left side M54.42 [facility] [address] [place] [id number] [place] [address] Mar, Lumbago with sciatica, left side M54.42 [place] [address] [address] Feb, Lumbago with sciatica, left side M54.42 [facility] [address] [address] Feb, [facility] [address] [id number] Feb, Encounter for dental examination Z01.20 [facility] [address] [place] [id number] [place] [address] Dec, Lumbago with sciatica, left side M54.42 [facility] [address] [place] [id number] [place] [address] May, Lumbago with sciatica, left side M54.42 ; Lumbago with sciatica, right side M54.41 and Encounter for immunization Z23 [place] [address] [place] [id number] [place] [address] Apr, Lumbago with sciatica, left side M54.42 [facility] [address] [place] [id number] [place] [id number] Apr, Dental caries K02.9 [place] [address] [place] [id number] [place] [address] Apr, [facility] [address] [place] [id number] [place] [id number] Apr, Dental examination Z01.20 [facility] [address] [place] [id number] [place] [address] Feb, Lumbago with sciatica, right side M54.41 [facility] [address] [place] [id number] [place] [address] Jan, Lumbago with sciatica, right side M54.41 [facility] [address], [place] [address] Dec, Lumbago with sciatica, right side M54.41 [facility] [address] [place] [id number] [place] [address] November, Lumbago with sciatica, right side M54.41 [facility] [address] [place] [id number] [place] [address] Oct, Lumbago with sciatica, left side M54.42 [facility] [address] [id number] [place] [address] Sep, [facility] [place] [facility] [address] [id number] [place] [address] Aug, [facility] [address] [id number] [place] [address] Jul, [facility] [place] [facility] [address] [id number] [place] [address] May, [facility] [id number] [place] [address], [place] [address] Apr, [facility] [place] [facility] [address] [id number] [place] [address] Mar, [facility] [address] [facility] [id number] [place] [address] Feb, [facility] [place] [facility] [address] [id number] [place] [address] Jan, Low back pain M54.5 [facility] [address] [facility] [id number] [place] [address] Dec, [facility] [place] [facility] [address] [place] [id number] [place] [address] November, [facility] [place] [facility] [address] [facility] [id number] [place] [address] Oct, [facility] [place] [facility] [address] [id number] [place] [address] Sep, [facility] [place] [facility] [address] [facility] [id number] [place] [address] Aug, Low back pain M54.5 [facility] [place] [facility] [address] [facility] [id number] [place] [address] Jul, [facility] [place] [facility] [address] [facility] [id number], [place] [address] Jun, [facility] [address], [place] [address] Apr, [facility] [address], [place] [address] Feb, [facility] [address] [place] [address] [address] Jan, Hypertension 401.9 [facility] [address] [place] [id number] [place] [address] Jan, Hypertension 401.9 [facility] [address] [place] [id number] [place] [address] Dec, Diarrhea 787.91 and Hypertension 401.9 [facility] [address] [place] [id number] [place] [address] November, GERD (gastroesophageal reflux disease) 530.81 [facility] [address] [place] [id number] [address] Oct, [facility] [address], [place] [address] Oct, [facility] [address], [place] [address] Sep, [facility] [address], [place] [address] Sep, [facility] [address], [place] [address] Aug, [facility] [address], [place] [address] Aug, [facility] [address], [place] [address] May, [facility] [address], [place] [address] May, [facility] [address] [place] [id number] [address] November, [facility] [address] [id number] [place] [address] November, [facility] [place] [facility] [address] [id number] [place] [address] Oct, [facility] [place] [facility] [address] [id number] [place] [address] Oct, [facility] [place] [facility] [address] [id number] [place] [address] Aug, [facility] [place] [facility] [address] [id number] [place] [address] Aug, [facility] [place] [facility] [address] [id number] [place] [address] Jun, [facility] [place] [facility] [address] [id number] [place] [address] Jun, [facility] [address] [id number] [place] [address] Apr, [facility] [place] [facility] [address] [id number] [place] [address] Apr, [facility] [address] [id number] [place] [address] Apr, [facility] [place] [place] [facility] [address] [id number] [place] [address] Jan, [facility] [place] [facility] [address] [id number] [place] [address] Jan, [facility] [place] [facility] [address] [id number] [place] [address] November, [facility] [place] [facility] [address] [id number] [place] [address] Jun, [facility] [place] [facility] [address] [id number] [place] [address] Jun, [facility] [address] [facility] [id number], [place] [address] May, [facility] [address] [facility] [id number], [place] [address] May, [facility] [address] [facility] [id number], [place] [address] Apr, [facility] [address] [facility] [id number], [place] [address] Apr, IMMUNIZATIONS No Known Immunizations SOCIAL HISTORY Never Assessed REASON FOR VISIT Pain management (chronic), PT reports his BP has been running high for the last week. PT notes dizzyness, headahes and chest pain. -Silver HOLCOMB, PT reports he h as been dealing with a lot of anger issues and depression build up. Pt notes he would like to set up to see behavioral. -Silver HOLCOMB PLAN OF CARE Activity Details Follow Up 4 Weeks Reason:anxiety VITAL SIGNS Height 68 in 2018-06-06 Weight 245.2 lbs 2018-06-06 Temperature 98.1 degrees Fahrenheit 2018-06-06 Heart Rate 83 bpm 2018-06-06 Respiratory Rate 20 2018-06-06 BMI 37.28 kg/m2 2018-06-06 Blood pressure systolic 160 mmHg 2018-06-06 Blood pressure diastolic 80 mmHg 2018-06-06 MEDICATIONS Medication Instructions Dosage Frequency Start Date End Date Duration Status Tramadol HCl 50 MG Orally every 6 hrs 1 tablet as needed 6h November, 28 days Active Propranolol HCl 40 MG Orally 2 times a day 1 tablet 12h May, 30 day(s) Active Paroxetine HCl 20 MG Orally Once a day 1 tablet in the morning 24h May, 30 day(s) Active RESULTS No Results PROCEDURES No Known [...]
--- OUTSIDE RECORDS SUMMARY | 2018-12-08 11:05 | XMS REPORT ---
Author Author MARIAN MCKEON [facility] Address [address] [place] [address] Care Team Providers Care Government Affairs Specialist Name Role Phone MARIAN MCKEON Unavailable PROBLEMS Type Condition ICD9-CM Code OEL26-PA Code Onset Dates Condition Status SNOMED Code Problem Lumbago with sciatica, right side M54.41 Active 089462310 Problem Lumbago with sciatica, left side M54.42 Active 709544931 ALLERGIES No Known Allergies ENCOUNTERS Encounter Location Date Diagnosis [place] [address] [address] Feb, Lumbago with sciatica, left side M54.42 [place] [address] [address] Feb, [facility] [address] [id number] Feb, Encounter for dental examination Z01.20 [place] [address] [address] Dec, Lumbago with sciatica, left side M54.42 [place] [address] [address] May, Lumbago with sciatica, left side M54.42 ; Lumbago with sciatica, right side M54.41 and Encounter for immunization Z23 [place] [address] [address] Apr, Lumbago with sciatica, left side M54.42 [facility] [address] [id number] Apr, Dental caries K02.9 [place] [address], [place] [address] Apr, [facility] [address] [address] Apr, Dental examination Z01.20 [facility] [address], [place] [address] Feb, Lumbago with sciatica, right side M54.41 [facility] [address] [place] [id number] [place] [address] Jan, Lumbago with sciatica, right side M54.41 [facility] [address] [place] [id number] [place] [address] Dec, Lumbago with sciatica, right side M54.41 [facility] [address], [place] [address] November, Lumbago with sciatica, right side M54.41 [facility] [address] [place] [address] Oct, Lumbago with sciatica, left side M54.42 [facility] [address] [place] [id number], [place] [address] Sep, [facility] [address], [place] [address] Aug, [facility] [address], [place] [address] Jul, [facility] [address], [place] [address] May, [facility] [address] [place] [id number] [place] [address] Apr, [facility] [address], [place] [address] Mar, [facility] [address] [place] [id number] [place] [address] Feb, [facility] [address], [place] [address] Jan, Low back pain M54.5 [facility] [address], [place] [address] Dec, [facility] [address], [place] [address] November, [facility] [address], [place] [address] Oct, [facility] [address] [place] [address] Sep, [facility] [address], [place] [address] Aug, Low back pain M54.5 [facility] [address], [place] [address] Jul, [facility] [address], [place] [address] Jun, [facility] [address], [place] [address] Apr, [facility] [address], [place] [address] Feb, [facility] [address], [place] [address] Jan, Hypertension 401.9 [facility] [address], [place] [address] Jan, Hypertension 401.9 [facility] [address], [place] [address] Dec, Diarrhea 787.91 and Hypertension 401.9 [facility] [address], [place] [address] November, GERD (gastroesophageal reflux disease) 530.81 [facility] [address] [id number] [place] [address] Oct, [facility] [address] [id number] [place] [address] Oct, [facility] [address] [facility] [id number] [place] [address] Sep, [facility] [place] [facility] [address] [id number] [place] [address] Sep, [facility] [address] [facility] [id number] [place] [address] Aug, [facility] [address] [facility] [id number] [place] [address] Aug, [facility] [address] [place] [id number] [address] May, [facility] [address] [facility] [id number] [place] [address] May, [facility] [address] [facility] [id number] [place] [address] November, [facility] [address] [facility] [id number] [place] [address] November, [facility] [address] [facility] [id number] [place] [address] Oct, [facility] [place] [facility] [address] [facility] [id number], [place] [address] Oct, [facility] [place] [facility] [address] [facility] [id number] [place] [address] Aug, [facility] [place] [facility] [address] [facility] [id number] [place] [address] Aug, [facility] [place] [facility] [address] [facility] [id number] [place] [address] Jun, [facility] [place] [facility] [address] [place] [address] [id number], [place] [address] 04 Jun, 2013 [facility] [address], [place] [address] Apr, [facility] [address] [place] [address] [id number], [place] [address] Apr, [facility] [address], [place] [address] Apr, [facility] [address], [place] [address] Jan, [facility] [address] [place] [address] Jan, [facility] [address], [place] [address] November, [facility] [address], [place] [address] Jun, [facility] [address], [place] [address] Jun, [facility] [address], [place] [address] May, [facility] [address] [place] [address] [id number], [place] [address] May, [facility] [address] [place] [id number], [place] [address] Apr, [facility] [address] [place] [address] [id number], [place] [address] 14 Apr, 2010 IMMUNIZATIONS No Known Immunizations SOCIAL HISTORY Never Assessed REASON FOR VISIT Prophy PLAN OF CARE Activity Details Follow Up 2 Weeks-4 Weeks Reason:DONALD/Prophy VITAL SIGNS Height 68 in 2018-02-20 Blood pressure systolic 130 mmHg 2018-02-20 Blood pressure diastolic 82 mmHg 2018-02-20 MEDICATIONS Medication Instructions Dosage Frequency Start Date End Date Duration Status Advil Active Naproxen Not-Taking Tramadol HCl 50 MG Orally every 6 hrs 1 tablet as needed 6h 18 May, 2017 28 days Active RESULTS No Results PROCEDURES Procedure Date Ordered Result Body Site LTD ORAL EVALUATION - PROBLEM FOCUS Feb 20, 2018 INTRAORL-PERIAPICAL 1 FILM [id number] Feb 20, 2018 INTRAORL-PERIAPICAL EA ADD FILM Feb 20, 2018 INTRAORL-PERIAPICAL EA ADD FILM Feb 20, 2018 BITEWINGS - FOUR FILMS Feb 20, 2018 INSTRUCTIONS MEDICATIONS ADMINISTERED No Known Medications MEDICAL (GENERAL) HISTORY Type Description Date Medical History Hypothyroidism Medical History back pain Medical History attention deficit hyperactivity disorder Medical History hernia as a child Medical History Bi-polar dx Surgical History hernia surgery as a child Hospitalization History hernia surgery as a child Hospitalization History chest pain 2014
--- OUTSIDE RECORDS SUMMARY | 2018-12-08 11:05 | XMS REPORT ---
Author Author MAVERICK STORM [facility] WALK IN [facility] Address [address] [place] [address] Care Team Providers Care Elevator Troubleshooter Name Role Phone MAVERICK STORM Unavailable PROBLEMS Type Condition ICD9-CM Code [id number] Code Onset Dates Condition Status SNOMED Code Problem Lumbago with sciatica, right side M54.41 Active 420383691 Problem Lumbago with sciatica, left side M54.42 Active 711553382 ALLERGIES No Known Allergies ENCOUNTERS Encounter Location Date Diagnosis [facility] [address] [address] 30 May, 2018 [facility] IN [facility] [address] [address] May, Dysuria R30.0 and Acute urinary tract infection N39.0 [facility] [address] [address] May, Lumbago with sciatica, left side M54.42 [facility] [address] [address] Mar, Lumbago with sciatica, left side M54.42 [facility] [address] [address] Feb, Lumbago with sciatica, left side M54.42 [facility] [address] [address] Feb, [facility] [address] [id number] Feb, 2018 Encounter for dental examination Z01.20 [facility] [address] [address] Dec, Lumbago with sciatica, left side M54.42 [facility] [id number] [place] [address] May, Lumbago with sciatica, left side M54.42 ; Lumbago with sciatica, right side M54.41 and Encounter for immunization Z23 [facility] [address] [address] Apr, Lumbago with sciatica, left side M54.42 [facility] [address] [id number] Apr, Dental caries K02.9 [facility] [address] [address] Apr, [facility] [address] [id number] Apr, Dental examination Z01.20 [facility] [address] [address] Feb, Lumbago with sciatica, right side M54.41 [facility] [address] [address] Jan, Lumbago with sciatica, right side M54.41 [facility] [id number] [place] [address] Dec, Lumbago with sciatica, right side M54.41 [facility] [id number] [place] [address] November, Lumbago with sciatica, right side M54.41 [facility] [address] [address] Oct, Lumbago with sciatica, left side M54.42 [facility] [id number] [place] [address] Sep, [facility] [address] [id number] [place] [address] Aug, [facility] [address] [id number] [place] [address] Jul, [facility] [place] [facility] [address] [id number] [place] [address] May, [facility] [place] [facility] [address] [id number] [place] [address] Apr, [facility] [place] [facility] [address] [id number] [place] [address] Mar, [facility] [place] [facility] [address] [id number] [place] [address] Feb, [facility] [place] [facility] [address] [id number] [place] [address] Jan, Low back pain M54.5 [facility] [address] [id number] [place] [address] Dec, [facility] [place] [facility] [address] [id number] [place] [address] November, [facility] [address] [id number] [place] [address] Oct, [facility] [place] [facility] [address] [id number] [place] [address] Sep, [facility] [place] [facility] [address] [id number], [place] [address] Aug, Low back pain M54.5 [facility] [address] [id number] [place] [address] Jul, [facility] [place] [facility] [address] [id number] [place] [address] Jun, [facility] [place] [facility] [address] [id number] [place] [address] 14 Apr, 2015 [facility] [place] [facility] [address] [address] Feb, [facility] [address] [address] Jan, Hypertension 401.9 [facility] [address] [address] Jan, Hypertension 401.9 [facility] [id number] [place] [address] Dec, Diarrhea 787.91 and Hypertension 401.9 [facility] [id number] [place] [address], [place] [address] November, GERD (gastroesophageal reflux disease) 530.81 [facility] [address] [address] Oct, [facility] [id number] [place] [address] Oct, [facility] [address] [address] Sep, [facility] [address] [address] Sep, [facility] [address], [place] [address] Aug, [facility] [address], [place] [address] Aug, [facility] [address], [place] [address] May, [facility] [address], [place] [address] May, [facility] [address], [place] [address] November, [facility] [address] [place] [address] November, [facility] [place] [facility] [address] [id number] [place] [address] Oct, [facility] [place] [facility] [address] [id number] [place] [address] Oct, [facility] [place] [facility] [address] [id number] [place] [address] Aug, [facility] [place] [facility] [address] [id number] [place] [address] Aug, [facility] [place] [facility] [address] [id number] [place] [address] Jun, [facility] [place] [facility] [address] [id number] [place] [address] Jun, [facility] [place] [facility] [address] [id number] [place] [address] Apr, [facility] [address] [id number] [place] [address] Apr, [facility] [place] [facility] [address] [id number] [place] [address] Apr, [facility] [address] [id number] [place] [address] Jan, [facility] [place] [facility] [address] [id number] [place] [address] Jan, [facility] [place] [facility] [address] [id number] [place] [address] November, [facility] [place] [facility] [address] [id number] [place] [address] Jun, [facility] [place] [facility] [address] [id number] [place] [address] Jun, [facility] [place] [facility] [address] [id number] [place] [address] May, [facility] [place] [facility] [address] [id number] [place] [address] May, [facility] [address] [facility] [id number] [place] [address] Apr, [facility] [address] [facility] [id number] [place] [address] Apr, IMMUNIZATIONS No Known Immunizations SOCIAL HISTORY Never Assessed REASON FOR VISIT Painful Urination started about 1 week ago JStrasserRN PLAN OF CARE Activity Details Follow Up if not improving with PCP or reg follow up Reason: VITAL SIGNS Height 68 in 2018-05-20 Weight 247.2 lbs 2018-05-20 Temperature 98.3 degrees Fahrenheit 2018-05-20 Heart Rate 82 bpm 2018-05-20 Respiratory Rate 20 2018-05-20 BMI 37.58 kg/m2 2018-05-20 Blood pressure systolic 130 mmHg 2018-05-20 Blood pressure diastolic 90 mmHg 2018-05-20 MEDICATIONS Medication Instructions Dosage Frequency Start Date End Date Duration Status Tramadol HCl 50 MG Orally every 6 hrs 1 tablet as needed 6h November, 28 days Active Bactrim DS 800-160 MG Orally Twice a day 1 tablet 12h May, 10 day(s) Active Naproxen Not-Taking Advil Not-Taking RESULTS Name Result Date Reference Range UA LONG DIP (IN HOUSE) 2018-05-20 Lot # [id number] Exp date 06-06-18 Clarity clear Color dark yellow Odor none GLU negative JUSTO negative KET negative SG >=1.030 BLO trace-intact pH 6.0 Protein 1+ URO 0.2 NIT negative ROSE trace Lot # [id number] Exp date Jun 2018 PROCEDURES Procedure Date Ordered Result Body Site URINALYSIS, AUTO, W/O SCOPE May 20, 2018 INSTRUCTIONS MEDICATIONS ADMINISTERED No Known Medications MEDICAL (GENERAL) HISTORY Type Description Date Medical History Hypothyroidism Medical History back pain Medical History attention deficit hyperactivity disorder Medical History hernia as a child Medical History Bi-polar dx Surgical History hernia surgery as a child Hospitalization History hernia surgery as a child Hospitalization History chest pain 2014
--- OUTSIDE RECORDS SUMMARY | 2018-12-08 11:06 | XMS REPORT ---
Author Author YUNIEL SEGURA Organization [facility] Address [address] [place] [address] Care Team Providers Care Sales Data Analyst Name Role Phone YUNIEL SEGURA Unavailable PROBLEMS Type Condition ICD9-CM Code [id number] Code Onset Dates Condition Status SNOMED Code Problem Lumbago with sciatica, right side M54.41 Active 201567991 Problem Lumbago with sciatica, left side M54.42 Active 459743377 ALLERGIES No Known Allergies ENCOUNTERS Encounter Location Date Diagnosis [facility] [address] [id number] Mar, [address] [address] Feb, Lumbago with sciatica, left side M54.[address] [address] Feb, [facility] [address] [id number] Feb, Encounter for dental examination Z01.20 [place] [address] [address] Dec, Lumbago with sciatica, left side M54.42 [facility] [address] [address] May, Lumbago with sciatica, left side M54.42 ; Lumbago with sciatica, right side M54.41 and Encounter for immunization Z23 [facility] [address] [address] Apr, Lumbago with sciatica, left side M54.42 [facility] [address] [place] [id number] Apr, Dental caries K02.9 [facility] [id number] [place] [address] Apr, [facility] [id number] [place] [id number] Apr, Dental examination Z01.20 [facility] [id number] [place] [address] Feb, Lumbago with sciatica, right side M54.41 [facility] [id number] [place] [address] Jan, Lumbago with sciatica, right side M54.41 [facility] [id number] [place] [address] Dec, Lumbago with sciatica, right side M54.41 [facility] [id number] [place] [address] November, Lumbago with sciatica, right side M54.41 [facility] [id number] [place] [address] Oct, Lumbago with sciatica, left side M54.42 [facility] [address] [place] [address] Sep, [facility] [id number] [place] [address] Aug, [facility] [address] [id number], [place] [address] Jul, [facility] [id number] [place] [address] May, [facility] [id number] [place] [address] Apr, [facility] [id number] [place] [address] Mar, [facility] [address] [facility] [id number] [place] [address] Feb, [facility] [address], [place] [address] Jan, Low back pain M54.5 [facility] [address] [place] [address] Dec, [facility] [address] [facility] [id number], [place] [address] November, [facility] [id number] [place] [address] Oct, [facility] [id number], [place] [address] Sep, [facility] [address] [place] [address] Aug, Low back pain M54.5 [facility] [id number] [address] Jul, [facility] [address], [place] [address] Jun, [facility] [address], [place] [address] Apr, [facility] [address], [place] [address] Feb, [facility] [address] [facility] [id number], [place] [address] Jan, Hypertension 401.9 [facility] [address], [place] [address] Jan, Hypertension 401.9 [facility] [id number], [place] [address] Dec, Diarrhea 787.91 and Hypertension 401.9 [facility] [address], [place] [address] November, GERD (gastroesophageal reflux disease) 530.81 [facility] [address] [facility] [id number] [place] [address] Oct, [facility] [address] [facility] [id number] [place] [address] Oct, [facility] [address] [facility] [id number] [place] [address] Sep, [facility] [address] [facility] [id number] [place] [address] Sep, [facility] [id number] [place] [address] Aug, [facility] [id number] [place] [address] Aug, [facility] [id number], [place] [address] May, [facility] [id number] [place] [address] May, [facility] [address], [place] [address] November, [facility] [address], [place] [address] November, [facility] [address] [facility] [id number], [place] [address] Oct, [facility] [address] [facility] [id number], [place] [address] Oct, [facility] [id number], [place] [address] Aug, [facility] [id number], [place] [address] Aug, [facility] [id number], [place] [address] 04 Jun, 2013 [facility] [address], [place] [address] Jun, [facility] [address], [place] [address] Apr, [facility] [address], [place] [address] Apr, [facility] [address] [place] [address] Apr, [facility] [address] [place] [address] Jan, [facility] [id number] [place] [address] Jan, [facility] [address] [place] [address] November, [facility] [address], [place] [address] Jun, [facility] [address], [place] [address] Jun, [facility] [address], [place] [address] May, [facility] [address], [place] [address] May, [facility] [address], [place] [address] Apr, [facility] [id number], [place] [address] Apr, IMMUNIZATIONS No Known Immunizations SOCIAL HISTORY Never Assessed REASON FOR VISIT Pain management (chronic)-Deandra HOLCOM[place] PLAN OF CARE VITAL SIGNS Height 68 in 2017-12-13 Weight 258.6 lbs 2017-12-13 Temperature 98.0 degrees Fahrenheit 2017-12-13 Heart Rate 82 bpm 2017-12-13 Respiratory Rate 20 2017-12-13 BMI 39.32 kg/m2 2017-12-13 Blood pressure systolic 122 mmHg 2017-12-13 Blood pressure diastolic 82 mmHg 2017-12-13 MEDICATIONS Medication Instructions Dosage Frequency Start Date End Date Duration Status Naproxen Not-Taking Tramadol HCl 50 MG Orally every 6 hrs 1 tablet as needed 6h November, 28 days Active Advil Active RESULTS No Results PROCEDURES Procedure Date Ordered Result Body Site LAB NOT BILLED BY [facility] December 13, 2017 DRUG SCREENING TRAMADOL December 13, 2017 INSTRUCTIONS MEDICATIONS ADMINISTERED No Known Medications MEDICAL (GENERAL) HISTORY Type Description Date Medical History Hypothyroidism Medical History back pain Medical History attention deficit hyperactivity disorder Medical History hernia as a child Medical History Bi-polar dx Surgical History hernia surgery as a child Hospitalization History hernia surgery as a child Hospitalization History chest pain 2014
--- OUTSIDE RECORDS SUMMARY | 2018-12-08 11:06 | XMS REPORT ---
Author Author BRYCEDYLAN VILLATORO [facility] Address Unknown Care Team Providers Care Malware Analyst Name Role Phone DYLAN ALCALA Unavailable PROBLEMS Type Condition ICD9-CM Code BLO25-ZZ Code Onset Dates Condition Status SNOMED Code Problem Lumbago with sciatica, right side M54.41 Active 155067698 Problem Lumbago with sciatica, left side M54.42 Active 762323119 ALLERGIES No Known Allergies ENCOUNTERS Encounter Location Date Diagnosis [place] [address] [address] May, Lumbago with sciatica, left side M54.42 ; Lumbago with sciatica, right side M54.41 and Encounter for immunization Z23 [place] [address] [address] Apr, Lumbago with sciatica, left side M54.42 [facility] [address] [id number] Apr, Dental caries K02.9 [place] [address] [address] Apr, [facility] [address] [id number] Apr, Dental examination Z01.20 [facility] [address] [address] Feb, Lumbago with sciatica, right side M54.41 [facility] [address] [address] Jan, Lumbago with sciatica, right side M54.41 [facility] [address] [address] Dec, Lumbago with sciatica, right side M54.41 [facility] [id number] [address] November, Lumbago with sciatica, right side M54.41 [facility] [address] [place] [id number] [address] Oct, Lumbago with sciatica, left side M54.42 [facility] [address] [facility] [id number] [place] [address] Sep, [facility] [address] [place] [id number] [place] [address], [place] [address] Aug, [facility] [address] [place] [id number] [place] [address] Jul, [facility] [address] [place] [address] [id number] [place] [address] May, [facility] [address] [place] [id number] [address] Apr, [facility] [id number] [place] [address] Mar, [facility] [address] [place] [id number] [address] Feb, [facility] [address] [address] Jan, Low back pain M54.5 [facility] [address] [place] [id number] [address] Dec, [facility] [address] [place] [id number] [address] November, [facility] [address] [facility] [id number] [place] [address] Oct, [facility] [address] [address] Sep, [facility] [address] [address] Aug, Low back pain M54.5 [facility] [address] [address] Jul, [facility] [address] [address] Jun, [facility] [address] [place] [id number] [place] [address] Apr, [facility] [id number] [place] [address] Feb, [facility] [address] [place] [id number] [place] [address] Jan, Hypertension 401.9 [facility] [address] [place] [id number] [place] [address] Jan, Hypertension 401.9 [facility] [id number] [place] [address] Dec, Diarrhea 787.91 and Hypertension 401.9 [facility] [id number] [place] [address] November, GERD (gastroesophageal reflux disease) 530.81 [facility] [address] [address] Oct, [facility] [address] [place] [id number] [address] Oct, [facility] [address] [address] Sep, [facility] [address] [address] Sep, [facility] [address] [address] Aug, [facility] [address] [facility] [id number] [place] [address] Aug, [facility] [place] [facility] [address] [id number] [place] [address] May, [facility] [place] [facility] [address] [id number] [place] [address] May, [facility] [place] [facility] [address] [id number] [place] [address] November, [facility] [place] [facility] [address] [id number] [place] [address] November, [facility] [place] [facility] [address] [id number] [place] [address] Oct, [facility] [place] [facility] [address] [id number] [place] [address] Oct, [facility] [place] [facility] [address] [id number] [place] [address] Aug, [facility] [place] [facility] [address] [id number] [place] [address] Aug, [facility] [place] [facility] [address] [id number] [place] [address] Jun, [facility] [place] [facility] [address] [id number] [place] [address] Jun, [facility] [place] [facility] [address] [id number] [place] [address] Apr, [facility] [place] [facility] [address] [id number] [place] [address] Apr, [facility] [place] [facility] [address] [id number] [place] [address] Apr, [facility] [place] [facility] [address] [id number] [place] [address] Jan, [facility] [place] [facility] [address] [id number] [place] [address] Jan, [facility] [address] [facility] [id number] [address] November, [facility] [address] [facility] [id number] [place] [address] Jun, [facility] [address] [facility] [id number] [place] [address] Jun, [facility] [address] [facility] [id number] [place] [address] May, [facility] [address] [facility] [id number] [place] [address] May, [facility] [address] [place] [id number] [address] Apr, [facility] [address] [place] [id number] [address] Apr, IMMUNIZATIONS No Known Immunizations SOCIAL HISTORY Never Assessed REASON FOR VISIT [place] PLAN OF CARE Activity Details Follow Up 1 Week Reason:TE #3 VITAL SIGNS Height 68 in 2017-04-10 Blood pressure systolic 140 mmHg 2017-04-10 Blood pressure diastolic 100 mmHg 2017-04-10 MEDICATIONS Medication Instructions Dosage Frequency Start Date End Date Duration Status Tramadol HCl 50 MG Orally every 6 hrs 1 tablet as needed 6h November, 28 days Active Tramadol HCl 50 mg Orally 4 times a day TAKE ONE TABLET 6h 28 days Active Advil Active Naproxen Active Amoxicillin 500 MG Orally every 8 hrs 1 capsule 8h Apr, Apr, 7 days Active RESULTS No Results PROCEDURES Procedure Date Ordered Result Body Site LTD ORAL EVALUATION - PROBLEM FOCUS Apr 10, 2017 INTRAORL-PERIAPICAL 1 FILM 52859 Apr 10, 2017 BITEWING - SINGLE FILM Apr 10, 2017 INSTRUCTIONS MEDICATIONS ADMINISTERED No Known Medications MEDICAL (GENERAL) HISTORY Type Description Date Medical History Hypothyroidism Medical History back pain Medical History attention deficit hyperactivity disorder Medical History hernia as a child Medical History Bi-polar dx Surgical History hernia surgery as a child Hospitalization History hernia surgery as a child Hospitalization History chest pain 2014
--- OUTSIDE RECORDS SUMMARY | 2018-12-08 11:06 | XMS REPORT ---
Author Author YUNIEL SEGURA Organization [facility] Address [address] [place] [address] Care Team Providers Care Marketing Sales Manager Name Role Phone YUNIEL SEGURA Unavailable PROBLEMS Type Condition ICD9-CM Code UYQ26-NX Code Onset Dates Condition Status SNOMED Code Problem Lumbago with sciatica, right side M54.41 Active 521700392 Problem Lumbago with sciatica, left side M54.42 Active 570062767 ALLERGIES No Information ENCOUNTERS Encounter Location Date Diagnosis [place] [address] [address] Feb, Lumbago with sciatica, left side M54.42 [place] [address] [address] Feb, [facility] [address] [id number] Feb, Encounter for dental examination Z01.20 [place] [address] [address] Dec, Lumbago with sciatica, left side M54.42 [place] [address] [address] May, Lumbago with sciatica, left side M54.42 ; Lumbago with sciatica, right side M54.41 and Encounter for immunization Z23 [place] [address] [address] Apr, Lumbago with sciatica, left side M54.42 [facility] [address] [id number] Apr, Dental caries K02.9 [place] [address] [address] Apr, [facility] [address] [id number] Apr, Dental examination Z01.20 [facility] [address] [address] Feb, Lumbago with sciatica, right side M54.41 [facility] [address] [place] [id number] [place] [address] Jan, Lumbago with sciatica, right side M54.41 [facility] [address] [place] [id number] [place] [address] Dec, Lumbago with sciatica, right side M54.41 [facility] [id number] [place] [address] November, Lumbago with sciatica, right side M54.41 [facility] [address] [address] Oct, Lumbago with sciatica, left side M54.42 [facility] [address] [place] [id number] [place] [address] Sep, [facility] [address], [place] [address] Aug, [facility] [address] [address] Jul, [facility] [address] [address] May, [facility] [address] [place] [id number] [place] [address] Apr, [facility] [address] [address] Mar, [facility] [address] [place] [id number] [place] [address] Feb, [facility] [address] [address] Jan, Low back pain M54.5 [facility] [address] [address] Dec, [facility] [id number] [place] [address] November, [facility] [address] [address] Oct, [facility] [id number] [place] [address] Sep, [facility] [id number] [place] [address] Aug, Low back pain M54.5 [facility] [id number] [place] [address] Jul, [facility] [address] [address] Jun, [facility] [address], [place] [address] Apr, [facility] [address] [address] Feb, [facility] [address], [place] [address] Jan, Hypertension 401.9 [facility] [address], [place] [address] Jan, Hypertension 401.9 [facility] [address], [place] [address] Dec, Diarrhea 787.91 and Hypertension 401.9 [facility] [address] [address] November, GERD (gastroesophageal reflux disease) 530.81 [facility] [address] [id number] [place] [address] 14 Oct, 2014 [facility] [place] [facility] [address] [id number] [place] [address] Oct, [facility] [place] [facility] [address] [id number] [place] [address] Sep, [facility] [place] [facility] [address] [id number] [place] [address] Sep, [facility] [address] [id number] [place] [address] Aug, [facility] [place] [facility] [address] [id number] [place] [address] Aug, [facility] [address] [facility] [id number] [place] [address] May, [facility] [address] [id number] [place] [address] May, [facility] [place] [facility] [address] [facility] [id number] [place] [address] November, [facility] [address] [facility] [id number] [place] [address] November, [facility] [place] [facility] [address] [facility] [id number] [place] [address] Oct, [facility] [place] [facility] [address] [id number] [address] Oct, [facility] [place] [facility] [address] [id number] [place] [address] Aug, [facility] [place] [facility] [address] [id number] [place] [address] Aug, [facility] [place] [facility] [address] [facility] [id number] [place] [address] Jun, [facility] [place] [facility] [address] [id number], [place] [address] Jun, [facility] [address] [facility] [id number], [place] [address] Apr, [facility] [address] [facility] [id number], [place] [address] Apr, [facility] [address], [place] [address] Apr, [facility] [address] [facility] [id number], [place] [address] Jan, [facility] [address], [place] [address] Jan, [facility] [address], [place] [address] November, [facility] [address] [address] Jun, [facility] [address] [address] Jun, [facility] [address] [address] May, [facility] [address] [place] [id number] [address] May, [facility] [address] [place] [id number] [address] Apr, [facility] [address] [id number] [address] Apr, IMMUNIZATIONS No Known Immunizations SOCIAL HISTORY Never Assessed REASON FOR VISIT Refill request PLAN OF CARE VITAL SIGNS MEDICATIONS Unknown Medications RESULTS No Results PROCEDURES No Known procedures [...]
--- OUTSIDE RECORDS SUMMARY | 2018-12-08 11:06 | XMS REPORT ---
Author Author YUNIEL SEGURA Organization [facility] Address [address] [place] [address] Care Team Providers Care Precision Instrument And Tool Maker Name Role Phone YUNIEL SEGURA Unavailable PROBLEMS Type Condition ICD9-CM Code UGO33-CN Code Onset Dates Condition Status SNOMED Code Problem Lumbago with sciatica, right side M54.41 Active 965940845 Problem Lumbago with sciatica, left side M54.42 Active 811186035 ALLERGIES No Known Allergies SOCIAL HISTORY Never Assessed PLAN OF CARE VITAL SIGNS Height 68 in 2016-11-22 Weight 260.2 lbs 2016-11-22 Temperature 98.6 degrees Fahrenheit 2016-11-22 Heart Rate 86 bpm 2016-11-22 Respiratory Rate 20 2016-11-22 BMI 39.56 kg/m2 2016-11-22 Blood pressure systolic 124 mmHg 2016-11-22 Blood pressure diastolic 88 mmHg 2016-11-22 MEDICATIONS Medication Instructions Dosage Frequency Start Date End Date Duration Status Baclofen 10 mg Orally Three times a day 1 tablet with food or milk 8h Oct, Dec, 30 day(s) Active Tramadol HCl 50 mg Orally every 6 hrs 1 tablet as needed 6h November, Active Tramadol HCl 50 mg Orally 4 [...]
--- OUTSIDE RECORDS SUMMARY | 2018-12-08 11:06 | XMS REPORT ---
Author Author YUNIEL SEGURA Organization [facility] [place] Address [address] [place] [address] Care Team Providers Care Cutter Gas Name Role Phone YUNIEL SEGURA Unavailable PROBLEMS Type Condition ICD9-CM Code GPT41-IR Code Onset Dates Condition Status SNOMED Code Problem Lumbago with sciatica, right side M54.41 Active 688028289 Problem Lumbago with sciatica, left side M54.42 Active 381565348 ALLERGIES No Information ENCOUNTERS Encounter Location Date Diagnosis [place] [address] [address] Feb, Lumbago with sciatica, left side M54.42 [place] [address] [address] Feb, [facility] [address] [id number] Feb, Encounter for dental examination Z01.20 [place] [address] [address] Dec, Lumbago with sciatica, left side M54.42 [place] [address] [address] May, Lumbago with sciatica, left side M54.42 ; Lumbago with sciatica, right side M54.41 and Encounter for immunization Z23 [place] [address] [address] Apr, Lumbago with sciatica, left side M54.42 [facility] [address] [id number] Apr, Dental caries K02.9 [place] [address], [place] [address] Apr, [facility] [address] [address] Apr, Dental examination Z01.20 [facility] [place] [address], [place] [address] Feb, Lumbago with sciatica, right side M54.41 [facility] [place] [address] [place] [id number] [place] [address] Jan, Lumbago with sciatica, right side M54.41 [facility] [place] [address] [id number] [place] [address] Dec, Lumbago with sciatica, right side M54.41 [facility] [place] [id number] [place] [address] November, Lumbago with sciatica, right side M54.41 [facility] [place] [address], [place] [address] Oct, Lumbago with sciatica, left side M54.42 [facility] [place] [id number] [place] [address] Sep, [facility] [place] [address], [place] [address] Aug, [facility] [place] [address], [place] [address] Jul, [facility] [place] [address], [place] [address] May, [facility] [place] [id number] [place] [address] Apr, [facility] [place] [address], [place] [address] Mar, [facility] [place] [id number] [place] [address] Feb, [facility] [place] [address], [place] [address] Jan, Low back pain M54.5 [facility] [place] [address], [place] [address] Dec, [facility] [place] [id number] [place] [address] November, [facility] [place] [address], [place] [address] Oct, [facility] [place] [id number] [place] [address] Sep, [facility] [place] [id number] [place] [address] Aug, Low back pain M54.5 [facility] [place] [id number] [place] [address] Jul, [facility] [place] [address], [place] [address] Jun, [facility] [place] [address], [place] [address] Apr, [facility] [place] [address], [place] [address] Feb, [facility] [place] [address], [place] [address] Jan, Hypertension 401.9 [facility] [place] [address], [place] [address] Jan, Hypertension 401.9 [facility] [place] [address], [place] [address] Dec, Diarrhea 787.91 and Hypertension 401.9 [facility] [place] [address], [place] [address] November, GERD (gastroesophageal reflux disease) 530.81 [facility] [address] [id number] [place] [address] 14 Oct, 2014 [facility] [place] [facility] [address] [id number] [place] [address] Oct, [facility] [place] [facility] [address] [id number] [place] [address] Sep, [facility] [place] [facility] [address] [id number] [place] [address] Sep, [facility] [address] [id number] [place] [address] Aug, [facility] [place] [facility] [address] [id number] [place] [address] Aug, [facility] [address] [facility] [id number] [place] [address] May, [facility] [address] [id number] [place] [address] May, [facility] [place] [facility] [address] [facility] [id number] [place] [address] November, [facility] [address] [facility] [id number] [place] [address] November, [facility] [place] [facility] [address] [facility] [id number] [place] [address] Oct, [facility] [place] [facility] [address] [id number] [address] Oct, [facility] [place] [facility] [address] [id number] [place] [address] Aug, [facility] [place] [facility] [address] [id number] [place] [address] Aug, [facility] [place] [facility] [address] [facility] [id number] [place] [address] Jun, [facility] [place] [facility] [id number] [address] Jun, [facility] [place] [address], [place] [address] Apr, [facility] [place] [address], [place] [address] Apr, [facility] [place] [address], [place] [address] Apr, [facility] [place] [address] [place] [id number] [place] [address] Jan, [facility] [place] [address] [place] [id number] [place] [address] Jan, [facility] [place] [id number] [place] [address] November, [facility] [place] [id number] [place] [address] Jun, [facility] [place] [address], [place] [address] Jun, [facility] [place] [address], [place] [address] May, [facility] [place] [address], [place] [address] May, [facility] [place] [address], [place] [address] Apr, [facility] [place] [address], [place] [address] Apr, IMMUNIZATIONS No Known Immunizations SOCIAL HISTORY [...] as a child Hospitalization History chest pain 2015
--- OUTSIDE RECORDS SUMMARY | 2018-12-08 11:07 | XMS REPORT ---
Author Author YUNIEL SEGURA [facility] Address [facility] [place] [address] Care Team Providers Care Learning Officer Name Role Phone YUNIEL SEGURA Unavailable PROBLEMS Type Condition ICD9-CM Code [id number] Code Onset Dates Condition Status SNOMED Code Problem Lumbago with sciatica, right side M54.41 Active 980317216 Problem Lumbago with sciatica, left side M54.42 Active 614929260 ALLERGIES No Information SOCIAL HISTORY Never Assessed [...]
--- OUTSIDE RECORDS SUMMARY | 2018-12-08 11:07 | XMS REPORT ---
Author Author YUNIEL SEGURA Organization [facility] Address [address] [place] [address] Care Team Providers Care Supervisor Airplane Flight Attendant Name Role Phone YUNIEL SEGURA Unavailable PROBLEMS Type Condition ICD9-CM Code HPB47-YL Code Onset Dates Condition Status SNOMED Code Problem Lumbago with sciatica, right side M54.41 Active 663673471 Problem Lumbago with sciatica, left side M54.42 Active 153018203 ALLERGIES No Information ENCOUNTERS Encounter Location Date Diagnosis [place] [address] [place] [id number] [place] [address] May, Lumbago with sciatica, left side M54.42 ; Lumbago with sciatica, right side M54.41 and Encounter for immunization Z23 [facility] [address] [address] Apr, Lumbago with sciatica, left side M54.42 [facility] [address] [id number] Apr, Dental caries K02.9 [facility] [address] [place] [id number] [place] [address] Apr, [facility] [address] [id number] Apr, Dental examination Z01.20 [facility] [address] [address] Feb, Lumbago with sciatica, right side M54.41 [facility] [address] [place] [id number] [place] [address] Jan, Lumbago with sciatica, right side M54.41 [place] [address] [place] [id number] [place] [address] Dec, Lumbago with sciatica, right side M54.41 [facility] [address] [facility] [id number] [place] [address], [place] [address] November, Lumbago with sciatica, right side M54.41 [facility] [address] [facility] [id number] [place] [address] Oct, Lumbago with sciatica, left side M54.42 [facility] [address] [facility] [id number] [place] [address] Sep, [facility] [address] [facility] [id number] [place] [address], [place] [address] Aug, [facility] [address] [place] [id number] [place] [address] Jul, [facility] [address] [place] [id number] [address] May, [facility] [address] [place] [id number] [place] [address] Apr, [facility] [address] [place] [address] Mar, [facility] [place] [facility] [address] [place] [id number] [place] [address] Feb, [facility] [place] [facility] [address] [place] [id number] [address] Jan, Low back pain M54.5 [facility] [place] [facility] [address] [facility] [id number] [place] [address] Dec, [facility] [place] [facility] [address] [facility] [id number] [place] [address] November, [facility] [place] [facility] [address] [place] [id number] [place] [address] Oct, [facility] [place] [facility] [address] [id number] [address] 09 Sep, 2015 [facility] [address] [address] Aug, Low back pain M54.5 [facility] [address] [address] Jul, [facility] [address] [place] [id number] [place] [address] Jun, [facility] [address] [place] [address] [id number] [place] [address] Apr, [facility] [address] [place] [id number] [place] [address] Feb, [facility] [address] [place] [address] [id number] [place] [address] Jan, Hypertension 401.9 [facility] [address] [place] [id number] [place] [address] Jan, Hypertension 401.9 [facility] [id number] [place] [address] Dec, Diarrhea 787.91 and Hypertension 401.9 [facility] [address]100[place] [address] November, GERD (gastroesophageal reflux disease) 530.81 [facility] [address] [address] Oct, [facility] [address] [place] [id number] [address] Oct, [facility] [address] [address] Sep, [facility] [address] [address] Sep, [facility] [address] [address] Aug, [facility] [address] [id number] [place] [address] Aug, [facility] [place] [facility] [address] [id number] [place] [address] May, [facility] [place] [facility] [address] [id number] [place] [address] May, [facility] [place] [facility] [address] [id number] [place] [address] November, [facility] [place] [facility] [address] [id number] [place] [address] November, [facility] [place] [facility] [address] [id number] [place] [address] Oct, [facility] [place] [facility] [address] [id number] [place] [address] Oct, [facility] [place] [facility] [address] [id number] [place] [address] Aug, [facility] [place] [facility] [address] [id number] [place] [address] Aug, [facility] [place] [facility] [address] [id number] [place] [address] Jun, [facility] [place] [facility] [address] [id number] [place] [address] Jun, [facility] [place] [facility] [address] [id number] [place] [address] Apr, [facility] [place] [facility] [address] [id number] [place] [address] Apr, [facility] [place] [facility] [address] [id number] [place] [address] Apr, [facility] [place] [facility] [address] [id number] [place] [address] Jan, [facility] [place] [facility] [address] [id number] [address] Jan, [facility] [address] [place] [id number] [address] November, [facility] [address] [id number] [address] Jun, [facility] [address] [address] Jun, [facility] [address] [address] May, [facility] [address] [address] May, [facility] [address] [address] Apr, [facility] [address] [id number] [address] Apr, IMMUNIZATIONS No Known Immunizations SOCIAL HISTORY [...]
--- OUTSIDE RECORDS SUMMARY | 2018-12-08 11:07 | XMS REPORT ---
Author Author YUNIEL SEGURA Organization [facility] Address [address] [place] [address] Care Team Providers Care Coagulating Bath Operator Name Role Phone YUNIEL SEGURA Unavailable PROBLEMS Type Condition ICD9-CM Code GTO75-YB Code Onset Dates Condition Status SNOMED Code Problem Lumbago with sciatica, right side M54.41 Active 650425361 Problem Lumbago with sciatica, left side M54.42 Active 642124637 ALLERGIES No Information ENCOUNTERS Encounter Location Date Diagnosis [place] [address] [address] Dec, [place] [address] [address] November, [place] [address] [address] May, Lumbago with sciatica, left side M54.42 ; Lumbago with sciatica, right side M54.41 and Encounter for immunization Z23 [place] [address] [address] Apr, Lumbago with sciatica, left side M54.42 [facility] [address] [id number] Apr, Dental caries K02.9 [place] [address] [address] Apr, [facility] [address] [id number] Apr, Dental examination Z01.20 [place] [address] [address] Feb, Lumbago with sciatica, right side M54.41 [facility] [address] [place] [address] Jan, Lumbago with sciatica, right side M54.41 [facility] [address] [address] [id number] [place] [address] Dec, Lumbago with sciatica, right side M54.41 [facility] [id number] [place] [address], [place] [address] November, Lumbago with sciatica, right side M54.41 [facility] [id number] [place] [address], [place] [address] Oct, Lumbago with sciatica, left side M54.42 [facility] [address] [id number] [place] [address] Sep, [facility] [id number] [place] [address] Aug, [facility] [address] [id number] [place] [address] Jul, [facility] [id number] [place] [address] May, [facility] [address], [place] [address] Apr, [facility] [id number] [place] [address] Mar, [facility] [place] [facility] [id number] [place] [address] Feb, [facility] [place] [facility] [id number] [place] [address], [place] [address] Jan, Low back pain M54.5 [facility] [place] [facility] [address] [place] [address] Dec, [facility] [address] [id number] [address] November, [facility] [address], [place] [address] Oct, [facility] [address]005[address], [place] [address] Sep, [facility] [id number] [place] [address] Aug, Low back pain M54.5 [facility] [id number] [place] [address] Jul, [facility] [id number] [place] [address] Jun, [facility] [id number] [place] [address] Apr, [facility] [id number] [place] [address] Feb, [facility] [address] [place] [address] Jan, Hypertension 401.9 [facility] [id number] [place] [address] Jan, Hypertension 401.9 [facility] [id number] [place] [address] Dec, Diarrhea 787.91 and Hypertension 401.9 [facility] [id number] [place] [address] November, GERD (gastroesophageal reflux disease) 530.81 [facility] [id number] [place] [address] 14 Oct, 2014 [facility] [address], [place] [address] Oct, [facility] [address], [place] [address] Sep, [facility] [place] [facility] [address] [id number] [place] [address] Sep, [facility] [place] [facility] [address] [id number] [place] [address] Aug, [facility] [place] [facility] [address] [id number] [place] [address] Aug, [facility] [place] [facility] [address] [id number] [place] [address] May, [facility] [place] [facility] [address] [id number] [place] [address] May, [facility] [place] [facility] [address] [id number] [place] [address] November, [facility] [place] [facility] [address] [id number] [place] [address] November, [facility] [place] [facility] [address] [id number] [place] [address] Oct, [facility] [place] [facility] [address] [id number] [place] [address] Oct, [facility] [place] [facility] [address] [id number] [place] [address] Aug, [facility] [place] [facility] [address] [id number] [place] [address] Aug, [facility] [place] [facility] [address] [id number], [place] [address] Jun, [facility] [place] [facility] [address] [id number] [place] [address] Jun, [facility] [place] [facility] [address] [id number] [place] [address] Apr, [facility] [place] [facility] [address] [id number] [place] [address] Apr, [facility] [place] [facility] [address] [id number], [place] [address] Apr, [facility] [address] [id number], [place] [address] Jan, [facility] [id number], [place] [address] Jan, [facility] [id number], [place] [address] November, [facility] [id number], [place] [address] Jun, [facility] [id number], [place] [address] Jun, [facility] [id number], [place] [address] May, [facility] [id number], [place] [address] May, [facility] [id number], [place] [address] Apr, [facility] [address] [id number], [place] [address] Apr, IMMUNIZATIONS No Known Immunizations SOCIAL HISTORY Never Assessed REASON FOR VISIT Controlled Med Refill Request PLAN OF CARE VITAL SIGNS MEDICATIONS Medication [...]
--- OUTSIDE RECORDS SUMMARY | 2018-12-08 11:07 | XMS REPORT ---
Author Author YUNIEL SEGURA Organization [facility] Address [address] [place] [address] Care Team Providers Care Baby Nurse Name Role Phone YUNIEL SEGURA Unavailable PROBLEMS Type Condition ICD9-CM Code [id number] Code Onset Dates Condition Status SNOMED Code Problem Lumbago with sciatica, right side M54.41 Active 514770846 Problem Lumbago with sciatica, left side M54.42 Active 083375203 ALLERGIES No Known Allergies ENCOUNTERS Encounter Location Date Diagnosis [address] [address] Dec, [address] [address] May, Lumbago with sciatica, left side M54.42 ; Lumbago with sciatica, right side M54.41 and Encounter for immunization Z23 [address] [address] Apr, Lumbago with sciatica, left side M54.42 [facility] [address] [id number] Apr, Dental caries K02.9 [place] [address] [address] Apr, [facility] [address] [id number] Apr, Dental examination Z01.20 [place] [address] [address] Feb, Lumbago with sciatica, right side M54.41 [place] [address] [address] Jan, Lumbago with sciatica, right side M54.41 [facility] [address] [place] [id number] [place] [address] Dec, Lumbago with sciatica, right side M54.41 [facility] [address] [id number] [address] November, Lumbago with sciatica, right side M54.41 [facility] [id number] [place] [address], [place] [address] Oct, Lumbago with sciatica, left side M54.42 [facility] [address] [id number] [place] [address], [place] [address] Sep, [facility] [address] [id number] [place] [address] Aug, [facility] [id number] [place] [address] Jul, [facility] [id number] [place] [address] May, [facility] [id number] [place] [address] Apr, [facility] [address] [address] Mar, [facility] [id number] [place] [address] Feb, [facility] [id number] [address] Jan, Low back pain M54.5 [facility] [address] [id number] [place] [address] Dec, [facility] [place] [facility] [id number] [address] November, [facility] [id number] [address] 11 Oct, 2015 [facility] [address] [address] Sep, [facility] [id number] [place] [address] 08 Aug, 2015 Low back pain M54.5 [facility] [address] [id number] [place] [address] Jul, [facility] [id number] [place] [address] Jun, [facility] [id number] [place] [address] Apr, [facility] [id number] [place] [address] Feb, [facility] [id number] [place] [address] Jan, Hypertension 401.9 [facility] [address] [id number] [place] [address] Jan, Hypertension 401.9 [facility] [id number] [place] [address] Dec, Diarrhea 787.91 and Hypertension 401.9 [facility] [id number] [place] [address] November, GERD (gastroesophageal reflux disease) 530.81 [facility] [address] [address] Oct, [facility] [id number] [place] [address] Oct, [facility] [id number], [place] [address] Sep, [facility] [id number] [place] [address] Sep, [facility] [address] [id number] [place] [address] Aug, [facility] [place] [facility] [address] [id number] [place] [address] Aug, [facility] [place] [facility] [address] [id number] [place] [address] May, [facility] [place] [facility] [address] [id number] [place] [address] May, [facility] [place] [facility] [address] [id number] [place] [address] November, [facility] [place] [facility] [address] [id number] [place] [address] November, [facility] [place] [facility] [address] [id number] [place] [address] Oct, [facility] [place] [facility] [address] [id number] [address] Oct, [facility] [place] [facility] [address] [id number] [place] [address] Aug, [facility] [place] [facility] [address] [id number] [place] [address] Aug, [facility] [place] [facility] [address] [id number] [address] Jun, [facility] [place] [facility] [address] [id number], [place] [address] Jun, [facility] [place] [facility] [address] [id number] [place] [address] Apr, [facility] [place] [facility] [address] [id number] [place] [address] Apr, [facility] [place] [facility] [address] [id number] [place] [address] Apr, [facility] [place] [facility] [id number] [address] 31 Jan, 2013 [facility] [address], [place] [address] Jan, [facility] [address], [place] [address] November, [facility] [address] [address] Jun, [facility] [id number], [place] [address] Jun, [facility] [address] [place] [address] May, [facility] [address], [place] [address] May, [facility] [address], [place] [address] Apr, [facility] [address], [place] [address] Apr, IMMUNIZATIONS Vaccine Route Administration Date Status FLUARIX QUAD (3 AND UP) 2016 IM Intramuscular May 13, 2017 Administered SOCIAL HISTORY Never Assessed REASON FOR VISIT Pain management (chronic)/BP--Hermilo [place] PLAN OF CARE VITAL SIGNS Height 68 in 2017-05-13 Weight 260.1 lbs 2017-05-13 Temperature 98.6 degrees Fahrenheit 2017-05-13 Heart Rate 88 bpm 2017-05-13 Respiratory Rate 22 2017-05-13 BMI 39.54 kg/m2 2017-05-13 Blood pressure systolic 122 mmHg 2017-05-13 Blood pressure diastolic 90 mmHg 2017-05-13 MEDICATIONS Medication Instructions Dosage Frequency Start Date End Date Duration Status Naproxen Active Advil Active Tramadol HCl 50 MG Orally every 6 hrs 1 tablet as needed 6h November, 28 days Active RESULTS No Results PROCEDURES Procedure Date Ordered Result Body Site FLUARIX QUAD (3 AND UP) 2017 May 13, 2017 SINGLE IMMUNIZATION ADMIN May 13, 2017 INSTRUCTIONS MEDICATIONS ADMINISTERED No Known Medications MEDICAL (GENERAL) HISTORY Type Description Date Medical History Hypothyroidism Medical History back pain Medical History attention deficit hyperactivity disorder Medical History hernia as a child Medical History Bi-polar dx Surgical History hernia surgery as a child Hospitalization History hernia surgery as a child Hospitalization History chest pain 2015
--- OUTSIDE RECORDS SUMMARY | 2018-12-08 11:07 | XMS REPORT ---
Author Author YUNIEL SEGURA Organization [facility] Address [address] [place] [address] Care Team Providers Care Consumer Loan Officer Name Role Phone YUNIEL SEGURA Unavailable PROBLEMS Type Condition ICD9-CM Code UHE81-LC Code Onset Dates Condition Status SNOMED Code Problem Lumbago with sciatica, right side M54.41 Active 342153791 Problem Lumbago with sciatica, left side M54.42 Active 848518519 ALLERGIES No Known Allergies ENCOUNTERS Encounter Location Date Diagnosis [place] [address] [address] May, Lumbago with sciatica, left side M54.42 ; Lumbago with sciatica, right side M54.41 and Encounter for immunization Z23 [facility] [address] [address] Apr, Lumbago with sciatica, left side M54.42 [facility] [address] [id number] Apr, Dental caries K02.9 [facility] [address] [address] Apr, [facility] [address] [id number] Apr, Dental examination Z01.20 [facility] [address] [address] Feb, Lumbago with sciatica, right side M54.41 [facility] [address] [address] Jan, Lumbago with sciatica, right side M54.41 [place] [address] [place] [address] Dec, Lumbago with sciatica, right side M54.41 [facility] [address] [facility] [id number] [place] [address] November, Lumbago with sciatica, right side M54.41 [facility] [address] [facility] [id number] [place] [address] Oct, Lumbago with sciatica, left side M54.42 [facility] [address] [id number] [place] [address] Sep, [facility] [place] [facility] [address] [facility] [id number] [place] [address], [place] [address] Aug, [facility] [address] [place] [id number] [place] [address] Jul, [facility] [address] [place] [id number] [place] [address] May, [facility] [place] [facility] [address] [facility] [id number] [place] [address] Apr, [facility] [place] [facility] [address] [place] [id number] [place] [address] Mar, [facility] [place] [facility] [address] [place] [id number] [place] [address] Feb, [facility] [place] [facility] [address] [address] [id number] [address] Jan, Low back pain M54.5 [facility] [place] [facility] [address] [facility] [id number] [place] [address] Dec, [facility] [place] [facility] [address] [facility] [id number] [place] [address] November, [facility] [place] [facility] [address] [place] [id number] [place] [address] Oct, [facility] [place] [facility] [address] [place] [id number], [place] [address] 09 Sep, 2015 [facility] [address], [place] [address] Aug, Low back pain M54.5 [facility] [address], [place] [address] Jul, [facility] [id number] [place] [address] Jun, [facility] [address], [place] [address] Apr, [facility] [address] [id number] [place] [address] Feb, [facility] [address] [id number] [place] [address] Jan, Hypertension 401.9 [facility] [address] [place] [id number] [place] [address] Jan, Hypertension 401.9 [facility] [id number] [place] [address] Dec, Diarrhea 787.91 and Hypertension 401.9 [facility] [address], [place] [address] November, GERD (gastroesophageal reflux disease) 530.81 [facility] [address], [place] [address] Oct, [facility] [address], [place] [address] Oct, [facility] [address], [place] [address] Sep, [facility] [address], [place] [address] Sep, [facility] [address], [place] [address] Aug, [facility] [address] [id number] [place] [address] Aug, [facility] [place] [facility] [address] [id number] [place] [address] May, [facility] [place] [facility] [address] [id number] [place] [address] May, [facility] [place] [facility] [address] [id number] [place] [address] November, [facility] [place] [facility] [address] [id number] [place] [address] November, [facility] [place] [facility] [address] [id number] [place] [address] Oct, [facility] [place] [facility] [address] [id number] [place] [address] Oct, [facility] [place] [facility] [address] [id number] [place] [address] Aug, [facility] [place] [facility] [address] [id number] [place] [address] Aug, [facility] [place] [facility] [address] [id number] [place] [address] Jun, [facility] [place] [facility] [address] [id number] [place] [address] Jun, [facility] [place] [facility] [address] [id number], [place] [address] Apr, [facility] [place] [facility] [address] [id number] [place] [address] Apr, [facility] [place] [facility] [address] [id number] [place] [address] Apr, [facility] [place] [facility] [address] [id number] [place] [address] Jan, [facility] [place] [facility] [address] [place] [id number], [place] [address] Jan, [facility] [address] [id number], [place] [address] November, [facility] [address] [id number], [place] [address] Jun, [facility] [address] [place] [id number], [place] [address] Jun, [facility] [address] [id number], [place] [address] May, [facility] [address], [place] [address] May, [facility] [address], [place] [address] Apr, [facility] [address] [place] [id number], [place] [address] Apr, IMMUNIZATIONS No Known Immunizations SOCIAL HISTORY Never Assessed REASON FOR VISIT Blood pressure check [employer]brum[employer] PLAN OF CARE VITAL SIGNS Height 68 in 2017-04-10 Blood pressure systolic 138 mmHg 2017-04-10 Blood pressure diastolic 92 mmHg 2017-04-10 MEDICATIONS Medication Instructions Dosage Frequency Start Date End Date Duration Status Tramadol HCl 50 MG Orally every 6 hrs 1 tablet as needed 6h November, 28 days Active Advil Active Naproxen Active Amoxicillin 500 MG Orally every 8 hrs 1 capsule 8h Apr, Apr, 7 days Active Tramadol HCl 50 mg Orally [...]
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
[2018-12-08] MEDS ORDERED: TETANUS,DIPTH,PERTUSS P/F (BOOSTRIX) 0.5 ML VIAL IM ONE (11:30)
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
[2018-12-08] MEDS ORDERED: SULF1TAB35 PO (11:39)
[2018-12-08 11:45] VITALS: BP 131/75
== END 2018-12-08 11:45 | disposition home or self-care (01) ==
LOC: EDUNIT# 10:59 → ER 11:00
DX: T23.171A Burn of first degree of right wrist, initial encounter (principal); T31.0 Burns involving less than 10% of body surface; I10 Essential (primary) hypertension; F31.9 Bipolar disorder, unspecified; F17.210 Nicotine dependence, cigarettes, uncomplicated; Z98.890 Other specified postprocedural states; Z23 Encounter for immunization; X58.XXXA Exposure to other specified factors, initial encounter
CPT/HCPCS: 90471; 90715

== ENCOUNTER 2018-12-08 20:49 | Emergency (ER) | payer MEDICAID ==
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
[2018-12-08] MEDS ORDERED: LIDOCAINE 2% VISCOUS 15 ML UDC PO ONE (21:15)
[2018-12-08] MEDS ORDERED: ANTACID SUSP 30 ML UDC (MYLANTA) PO ONE (21:15)
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
[2018-12-08 22:02] VITALS: BP 118/67
--- NOTE | 2018-12-08 22:02 | NUR ---
d/c instructions to pt. told to read all papers. no scripts given. pt left ambulatory with girlfriend. pt knows f/u. i went oover the handtyped by dr rogers on the chart. pt had no iv. pt alert gcs 15 at d/c with no acute sighns of dyspnea noted.
== END 2018-12-08 22:02 | disposition home or self-care (01) ==
LOC: EDUNIT# 20:49 → ER 20:51
DX: S60.221A Contusion of right hand, initial encounter (principal); R07.9 Chest pain, unspecified; I10 Essential (primary) hypertension; F31.9 Bipolar disorder, unspecified; F17.210 Nicotine dependence, cigarettes, uncomplicated; Z98.890 Other specified postprocedural states; W22.09XA Striking against other stationary object, initial encounter
CPT/HCPCS: 71045; 73130; 93005

== ENCOUNTER 2019-01-16 18:56 | Emergency (ER) | payer MEDICAID ==
[~2019-01-16] VITALS: Ht 172.7 cm; Wt 108.9 kg
--- NOTE | 2019-01-16 19:00 | NUR ---
patient to room, c/o chest pain for 2 weeks, states he has been hiding it from his SO. denies shortness of breath, A&Ox4, denies fever, denies taking any pain medication for the pain.
[2019-01-16 19:30] LABS: BASOPHILS # (AUTO) 0.1 10^3/uL (0.0-0.1); BASOPHILS % (AUTO) 1 % (0-10); EOSINOPHILS # (AUTO) 0.2 10^3/uL (0.0-0.3); EOSINOPHILS % (AUTO) 2 % (0-10); HEMATOCRIT 40 % (40-54); LYMPHOCYTES # (AUTO) 2.1 X 10^3 (1.0-4.0); LYMPHOCYTES % (AUTO) 26 % (12-44); MEAN CORPUSCULAR HEMOGLOBIN 28 PG (25-34); MEAN CORPUSCULAR HGB CONC 35 G/DL (32-36); MEAN CORPUSCULAR VOLUME 79 FL (80-99); MEAN PLATELET VOLUME 11.2 FL (7.4-10.4); MONOCYTES # (AUTO) 0.7 X 10^3 (0.0-1.0); MONOCYTES % (AUTO) 9 % (0-12); NEUTROPHILS # (AUTO) 5.1 X 10^3 (1.8-7.8); NEUTROPHILS % (AUTO) 63 % (42-75); PLATELET COUNT 173 10^3/uL (130-400); RED CELL DISTRIBUTION WIDTH 13.4 % (10.0-14.5); WHITE BLOOD COUNT 8.1 10^3/uL (4.3-11.0)
[2019-01-16] MEDS ORDERED: KETOROLAC 30 MG/ML VIAL IVP ONE (19:30)
--- NOTE | 2019-01-16 19:31 | ED Chest Pain ---
General Chief Complaint: Cardiac/General Problems Stated Complaint: CHEST PAIN x2 DAYS Source: patient Exam Limitations: no limitations History of Present Illness Date Seen by Provider: Jan 16, 2019 Time Seen by Provider: 19:29 Initial Comments To ER with sharp chest pain worsened by deep breathing persistent for 2 weeks. States deep breathing makes it worse and stress makes it worse. His girlfriend states "he's just here to get a work note". Denies fevers or chills. 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 Please provide education. Prescribed by: ANKITA GARCIA on 10/16/162136 Azithromycin 250 Mg Tablet, 250 MG PO DAILY Prescribed by: ANKITA GARCIA on 10/16/162134 Baclofen 10 Mg Tablet, 1 TAB PO UD, (Reported) Naproxen 500 Mg Tablet, 500 MG PO BID PRN for PAIN-MODERATE Prescribed by: LEORA BAER on 04/08/171814 Ondansetron 4 Mg Tab.rapdis, 4 MG SL Q4H PRN for NAUSEA-1ST LINE Prescribed by: ANKITA GARCIA on 10/16/162134 Ondansetron 4 Mg Tab.rapdis, 4 MG PO Q6H PRN for NAUSEA/VOMITING Prescribed by: LEORA BAER on 08/29/182200 Sulfamethoxazole/Trimethoprim 1 Each Tablet, 1 EACH PO BID Prescribed by: LEORA BAER on 08/29/182200 Sulfamethoxazole/Trimethoprim 1 Each Tablet, 1 EACH PO BID Prescribed by: CARYN LEVIN on 12/08/18 1139 Tramadol HCl 50 Mg Tablet, 1 TAB PO UD, (Reported) Patient Home Medication List Home Medication List Reviewed: Yes Review of Systems Review of Systems Constitutional: see HPI EENTM: No Symptoms Reported Respiratory: No Symptoms Reported Cardiovascular: See HPI, Chest Pain Gastrointestinal: No Symptoms Reported Genitourinary: No Symptoms Reported Musculoskeletal: no symptoms reported Skin: no symptoms reported Psychiatric/Neurological: No Symptoms Reported Endocrine: No Symptoms Reported Hematologic/Lymphatic: No Symptoms Reported Past Brdtwdz-Mphozs-Ldrjyl Hx Patient Social History Alcohol Beverage of Choice: Beer Type Used: Cigarettes 2nd Hand Smoke Exposure: Yes Recent Foreign Travel: No Contact w/Someone Who Travel: No Recent Hopitalizations: No Immunizations Up To Date Tetanus Booster (TDap): Unknown Seasonal Allergies Seasonal Allergies: No Past Medical History Surgeries: Yes (HERNIA REPAIR) Respiratory: No Cardiac: Yes Hypertension Neurological: No Reproductive Disorders: No Gastrointestinal: No Musculoskeletal: Yes Arthritis, Chronic Back Pain Endocrine: No Cancer: No Psychosocial: Yes Bipolar, Depression Integumentary: No Blood Disorders: No Family Medical History No Pertinent Family Hx Physical Exam Vital Signs Vital Signs - First Documented 01/16/19 19:00 Temp 98.7 Pulse 92 Resp 20 B/P (MAP) 138/93 (108) Pulse Ox 97 Capillary Refill : Height, Weight, BMI Height: 5'8.00" Weight: 240lbs. oz. 108.674297dn; 30.68 BMI Method:Stated General Appearance: No Apparent Distress, WD/WN HEENT: PERRL/EOMI, TMs Normal Respiratory: No Accessory Muscle Use, No Respiratory Distress Cardiovascular: Regular Rate, Rhythm, Normal Peripheral Pulses Gastrointestinal: Normal Bowel Sounds, Non Tender, Soft Neurologic/Psychiatric: Alert, Oriented x3 Skin: Normal Color, Warm/Dry Progress/Results/Core Measures Results/Orders Lab Results Laboratory Tests Test 01/16/19 19:23 01/16/19 20:33 Range/Units White Blood Count 8.1 4.3-11.0 10^3/uL Red Blood Count 5.00 4.35-5.85 10^6/uL Hemoglobin 14.0 13.3-17.7 G/DL Hematocrit 40 40-54 % Mean Corpuscular Volume 79 L 80-99 FL Mean Corpuscular Hemoglobin 28 25-34 PG Mean Corpuscular Hemoglobin Concent 35 32-36 G/DL Red Cell Distribution Width 13.4 10.0-14.5 % Platelet Count 173 130-400 10^3/uL Mean Platelet Volume 11.2 H 7.4-10.4 FL Neutrophils (%) (Auto) 63 42-75 % Lymphocytes (%) (Auto) 26 12-44 % Monocytes (%) (Auto) 9 0-12 % Eosinophils (%) (Auto) 2 0-10 % Basophils (%) (Auto) 1 0-10 % Neutrophils # (Auto) 5.1 1.8-7.8 X 10^3 Lymphocytes # (Auto) 2.1 1.0-4.0 X 10^3 Monocytes # (Auto) 0.7 0.0-1.0 X 10^3 Eosinophils # (Auto) 0.2 0.0-0.3 10^3/uL Basophils # (Auto) 0.1 0.0-0.1 10^3/uL Sodium Level 141 135-145 MMOL/L Potassium Level 3.7 3.6-5.0 MMOL/L Chloride Level 109 H 98-107 MMOL/L Carbon Dioxide Level 21 21-32 MMOL/L Anion Gap 11 5-14 MMOL/L Blood Urea Nitrogen 15 7-18 MG/DL Creatinine 1.03 0.60-1.30 MG/DL Estimat Glomerular Filtration Rate > 60 BUN/Creatinine Ratio 15 Glucose Level 116 H 70-105 MG/DL Calcium Level 9.4 8.5-10.1 MG/DL Corrected Calcium 9.4 8.5-10.1 MG/DL Total Bilirubin 1.0 0.1-1.0 MG/DL Aspartate Amino Transf (AST/SGOT) 19 5-34 U/L Alanine Aminotransferase (ALT/SGPT) 36 0-55 U/L Alkaline Phosphatase 97 40-136 U/L Troponin I < 0.028 <0.028 NG/ML Total Protein 7.1 6.4-8.2 GM/DL Albumin 4.0 3.2-4.5 GM/DL My Orders Orders - TERESO MUSE REPACKER Cbc With Automated Diff (01/16/19 19:21) Comprehensive Metabolic Panel (01/16/19 19:21) Troponin I (01/16/19 19:21) Chest 1 View, Ap/Pa Only (01/16/19 19:21) Ed Iv/Invasive Line Start (01/16/19 19:21) Ketorolac Injection (Toradol Injection) (01/16/19 19:30) BNP (01/16/19 20:30) Metoprolol Tartrate (Ir) Tab (Lopressor (01/16/19 20:30) Hydrocodone/Apap 5/325 Tablet (Lortab 5 (01/16/19 20:45) Medications Given in ED Current Medications Medications Dose Ordered Sig/Rekha Route Start Time Stop Time Status Last Admin Dose Admin Ketorolac Tromethamine 15 mg ONCE ONCE IVP 01/16/19 19:30 01/16/19 19:31 DC 01/16/19 19:27 15 MG Vital Signs/I&O 01/16/19 19:00 Temp 98.7 Pulse 92 Resp 20 B/P (MAP) 138/93 (108) Pulse Ox 97 Departure Impression Primary Impression: Pleuritic chest pain Disposition: HOME, SELF-CARE Condition: Stable Departure-Patient Inst. Decision time for Depature: 19:31 Referrals: [facility] (PCP/Family) Primary Care Physician Patient Instructions: Pleuritic Chest Pain (DC) Add. Discharge Instructions: 1. Tylenol and ibuprofen for pain control 2. Return to ER for any concerns 3. Follow-up with your doctor next week. All discharge instructions reviewed with patient and/or family. Voiced understanding. 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
[2019-01-16 19:50] LABS: ALANINE AMINOTRANSFERASE 36 U/L (0-55); ALKALINE PHOSPHATASE 97 U/L (40-136); BUN/CREATININE RATIO 15; CALCIUM 9.4 MG/DL (8.5-10.1); CARBON DIOXIDE 21 MMOL/L (21-32); CHLORIDE 109 MMOL/L (98-107); CREATININE SERUM 1.03 MG/DL (0.60-1.30); GFR ESTIMATED > 60; GLUCOSE 116 MG/DL (70-105); POTASSIUM 3.7 MMOL/L (3.6-5.0); SODIUM 141 MMOL/L (135-145); TOTAL PROTEIN 7.1 GM/DL (6.4-8.2)
--- NOTE | 2019-01-16 20:19 | Diagnostic Imaging Report ---
INDICATION: Chest pain for two weeks. EXAMINATION: Chest dated 01/16/2019. COMPARISONS: 12/08/2018. FINDINGS: Heart is unremarkable. Pulmonary vasculature is congested. Atelectasis at the bases. No effusions. No pneumothorax. IMPRESSION: 1. Pulmonary vascular congestion is suspected. Mild bibasilar atelectasis. Early infiltrates not excluded. Dictated by: Dictated on workstation # [id number]
[2019-01-16] MEDS ORDERED: meTOprolol TARTRATE 25 MG (LOPRESSOR) TABLET PO ONE (20:30)
[2019-01-16 20:35] VITALS: BP 138/78
[2019-01-16] MEDS ORDERED: HYDROcodone/APAP 5 MG/325 MG (LORTAB) TAB PO ONE (20:45)
--- OUTSIDE RECORDS SUMMARY | 2019-01-16 21:49 | XMS REPORT | Clinical Summary ---
Author Author [facility] Organization [facility] Address Unknown Phone Unavailable Care Team Providers Care Assembler [employer] Name Role Phone Self, Referral PCP Unavailable Sha Denise DO Unavailable Source Comments Some departments are not documenting in the electronic medical record. If you d o not see the information that you expected, contact Release of Information in [facility] Information Management department at [phone] for further assistan ce in locating additional records.[facility] Allergies No Known Allergies Medications End Date [...] Use Types Packs/Day Years Used Never Smoker Drinks/Week oz/Week Comments Alcohol Use No Sex Assigned at Date Recorded Not on file Industry Job Start Date Occupation Not on file Not on file Not on file Travel End Travel History Travel Start No recent travel history available. 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 Pulse 36.7 C (98.1 F) 09/09/2007 8:00 AM [employer] INSTRUMENT REPAIRER Temperature - - Respiratory Rate - - Oxygen Saturation - - Inhaled Oxygen Concentration 90.7 kg (200 lb) 09/03/2007 2:00 PM [employer] INSTRUMENT REPAIRER Weight 168.9 cm (5' 6.5") 09/03/2007 2:00 PM [employer] REPA[employer] Height 31.8 09/03/2007 2:00 PM [employer] REPAIRER Body Mass Index Plan of Treatment Health Maintenance Due Date Last Done Comments PHYSICAL (COMPREHENSIVE) 1999 EXAM HIV SCREENING 2007 DTAP/TDAP VACCINES (1 - 2010 Tdap) INFLUENZA VACCINE 04/07/2019 Results Not on filefrom Last 3 Months
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
== END 2019-01-16 20:35 | disposition home or self-care (01) ==
LOC: EDUNIT# 18:56 → ER 18:57
DX: R07.81 Pleurodynia (principal); I10 Essential (primary) hypertension; F31.9 Bipolar disorder, unspecified; Z77.22 Contact with and (suspected) exposure to environmental tobacco smoke (acute) (chronic)
CPT/HCPCS: 36415; 71045; 80053; 83880; 84484; 85025; 93005; 96374

== ENCOUNTER 2019-01-17 20:16 | Emergency (ER) | payer MEDICAID ==
[~2019-01-17] VITALS: Ht 182.9 cm; Wt 108.9 kg
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
[2019-01-17 21:08] VITALS: BP 137/62
== END 2019-01-17 21:10 | disposition home or self-care (01) ==
LOC: EDUNIT# 20:16 → ER 20:17
DX: S09.90XA Unspecified injury of head, initial encounter (principal); I10 Essential (primary) hypertension; F31.9 Bipolar disorder, unspecified; R40.2142 Coma scale, eyes open, spontaneous, at arrival to emergency department; R40.2252 Coma scale, best verbal response, oriented, at arrival to emergency department; R40.2362 Coma scale, best motor response, obeys commands, at arrival to emergency department; Z77.22 Contact with and (suspected) exposure to environmental tobacco smoke (acute) (chronic); Z98.890 Other specified postprocedural states; Y04.0XXA Assault by unarmed brawl or fight, initial encounter; Y93.72 Activity, wrestling
CPT/HCPCS: 99282

== ENCOUNTER 2019-02-14 23:12 | Emergency (ER) | payer MEDICAID ==
[~2019-02-14] VITALS: Ht 175.3 cm; Wt 108.9 kg
--- OUTSIDE RECORDS SUMMARY | 2019-02-14 23:17 | XMS REPORT | Clinical Summary ---
Author Author [facility] Organization [facility] Address Unknown Phone Unavailable Care Team Providers Care Gas Load Dispatcher Name Role Phone Self, Referral PCP Unavailable Sha Denise DO Unavailable Source Comments Some departments are not documenting in the electronic medical record. If you d o not see the information that you expected, contact Release of Information in [facility] [employer] Information Management department at [phone] for further assistan ce in locating additional records.[facility] Allergies No Known Allergies Medications End [...] Comments Vital Sign 131/74 09/09/2007 8:00 AM METHODS STUDY ANALYST Blood Pressure 108 09/09/2007 8:00 AM METHODS STUDY ANALYST Pulse 36.7 C (98.1 F) 09/09/2007 8:00 AM METHODS STUDY ANALYST Temperature - - Respiratory Rate - - Oxygen Saturation - - Inhaled Oxygen Concentration 90.7 kg (200 lb) 09/03/2007 2:00 PM METHODS STUDY ANALYST Weight 168.9 cm (5' 6.5") 09/03/2007 2:00 PM METHODS STUDY ANALYST Height 31.8 09/03/2007 2:00 PM METHODS STUDY ANALYST Body Mass Index Plan of Treatment Health Maintenance Due Date Last Done Comments PHYSICAL (COMPREHENSIVE) 1999 EXAM HIV SCREENING 2007 DTAP/TDAP VACCINES (1 - 2010 Tdap) INFLUENZA VACCINE 04/07/2019 Results Not on filefrom Last 3 Months
--- OUTSIDE RECORDS SUMMARY | 2019-02-14 23:17 | XMS REPORT ---
Author Author YUNIEL SEGURA Organization [facility] Address [address] [place] [address] Care Team Providers Care Enrollment Coordinator Name Role Phone YUNIEL SEGURA Unavailable PROBLEMS Type Condition ICD9-CM Code MFT26-UC Code Onset Dates Condition Status SNOMED Code Problem Hypertension, benign I10 Active 84137214 Problem Mood disorder F39 Active 18473079 Problem Lumbago with sciatica, left side M54.42 Active 569237238 Problem Lumbago with sciatica, right side M54.41 Active 441499761 Problem Anxiety F41.9 Active 94651469 ALLERGIES No Information ENCOUNTERS Encounter Location Date Diagnosis [place] [address] [address] Jan, Lumbago with sciatica, right side M54.41 [place] [address] [place] [id number] [place] [address] Dec, Lumbago with sciatica, right side M54.41 and Lumbago with sciatica, left side M54.42 [place] [address] [place] [id number] [place] [address] November, Mood disorder F39 [place] [address] [place] [id number] [place] [address] Sep, Mood disorder [address] [place], [place] [address] [place] [id number] [place] [address] Aug, Mood disorder F39 [place] [address] [place] [id number] [place] [address] Jun, Mood disorder F39 [place] [address] [place] [id number] [place] [address] 30 Nov, 2018 Anxiety F41.9 and Hypertension, benign I10 [facility] [address] [address] 13 May, 2018 Dysuria R30.0 and Acute urinary tract infection N39.0 [facility] [address] [address] 08 May, 2018 Lumbago with sciatica, left side M54.42 [facility] [address] [address] Mar, Lumbago with sciatica, left side M54.42 [facility] [address] [address] Feb, Lumbago with sciatica, left side M54.42 [facility] [address] [address] Feb, [facility] [address] [id number] Feb, Encounter for dental examination Z01.20 [facility] [address] [address] Dec, Lumbago with sciatica, left side M54.42 [facility] [address] [address] May, Lumbago with sciatica, left side M54.42 ; Lumbago with sciatica, right side M54.41 and Encounter for immunization Z23 [facility] [address] [address] [id number] [place] [address] Apr, Lumbago with sciatica, left side M54.42 [facility] [address] [id number] Apr, Dental caries K02.9 [facility] [address] [address] Apr, [facility] [address] [id number] Apr, Dental examination Z01.20 [facility] [address] [address] Feb, Lumbago with sciatica, right side M54.41 [facility] [address] [place] [id number] [address] Jan, Lumbago with sciatica, right side M54.41 [facility] [address] [id number] [place] [address] Dec, Lumbago with sciatica, right side M54.41 [facility] [address] [id number] [place] [address] November, Lumbago with sciatica, right side M54.41 [facility] [address] [address] Oct, Lumbago with sciatica, left side M54.42 [facility] [address] [address] Sep, [facility] [address] [place] [id number] [place] [address] Aug, [facility] [address] [address] Jul, [facility] [address] [address] May, [facility] [address] [place] [id number] [address] Apr, [facility] [id number] [address] Mar, [facility] [address] [place] [address] [id number] [address] Feb, [facility] [address] [address] Jan, Low back pain M54.5 [facility] [address] [address] 14 Dec, 2015 [facility] [address] [address] November, [facility] [address] [address] [address], [address] [facility] [address] [place] [address] [id number] [place] [address] Sep, [facility] [address] [address] Aug, Low back pain M54.5 [facility] [address] [address] Jul, [facility] [address] [place] [address] Jun, [facility] [address] [address] Apr, [facility] [address] [address] Feb, [facility] [address] [address] Jan, Hypertension 401.9 [facility] [address] [place] [address] Jan, Hypertension 401.9 [facility] [address] [address] Dec, Diarrhea 787.[address] [facility] [address] [address] November, GERD (gastroesophageal reflux disease) 530.81 [facility] [address] [address] Oct, [facility] [address] [place] [address] Oct, [facility] [address] [id number] [place] [address] Sep, [facility] [place] [facility] [address] [id number] [place] [address] Sep, [facility] [place] [facility] [address] [id number] [place] [address] Aug, [facility] [place] [facility] [address] [id number] [place] [address] Aug, [facility] [place] [facility] [address] [id number] [place] [address] May, [facility] [place] [facility] [address] [id number] [place] [address] May, [facility] [place] [facility] [address] [id number] [place] [address] November, [facility] [address] [id number] [place] [address] November, [facility] [place] [facility] [address] [id number] [place] [address] Oct, [facility] [place] [facility] [address] [id number] [place] [address] Oct, [facility] [place] [facility] [address] [id number] [place] [address] Aug, [facility] [place] [facility] [address] [id number] [place] [address] Aug, [facility] [place] [facility] [address] [id number] [place] [address] Jun, [facility] [place] [facility] [address] [id number] [place] [address] Jun, [facility] [place] [facility] [address] [id number] [place] [address] Apr, [facility] [address] [facility] [id number] [address] Apr, [facility] [address] [facility] [id number] [address] Apr, [facility] [address] [facility] [id number] [address] Jan, [facility] [address] [facility] [id number] [address] Jan, [facility] [address] [facility] [id number] [address] November, [facility] [address] [id number] [address] Jun, [facility] [address] [address] Jun, [facility] [address] [address] May, [facility] [id number] [address] May, [facility] [address] [address] Apr, [facility] [address] [id number] [address] Apr, IMMUNIZATIONS No Known Immunizations SOCIAL HISTORY Never Assessed REASON FOR VISIT PLAN OF CARE VITAL SIGNS MEDICATIONS Unknown [...] a child Hospitalization History chest pain 2014 Hospitalization History [facility] ER - right wrist 11/2018
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
[2019-02-15] MEDS ORDERED: PARO30TA3 (00:27)
[2019-02-15] MEDS ORDERED: PROP40TA5 (00:27)
--- NOTE | 2019-02-15 00:51 | ED Fall/Injury ---
General Chief Complaint: Laceration Stated Complaint: FALL Nursing Triage Note: right forehead laceration Source: patient Exam Limitations: no limitations History of Present Illness Date Seen by Provider: Feb 15, 2019 Time Seen by Provider: 00:43 Initial Comments Patient presents to ER by private conveyance with chief complaint that he was walking home this evening and tripped over the sidewalk falling missing his hands and landing on his right forehead. He did not lose consciousness and is not on blood thinners. He did however note that he was bleeding so he went to a friend's house who patched him up but then he said he started seeing double vision. He does not have a problem with his vision prior to this. He has not taken anything for the pain. He is not having significant pain. He says he did have a tetanus shot within the last 5 years. Allergies and Home Medications Allergies Coded Allergies: Natan Known Allergies (Verified Allergy, Unknown, 11/04/05) Home Medications Tramadol HCl 50 Mg Tablet, 1 TAB PO UD, (Reported) Patient Home Medication List Home Medication List Reviewed: Yes Review of Systems Review of Systems Constitutional: No chills, No diaphoresis Eyes: Denies Blindness, Denies Blurred Vision; Other (double vision) Ears, Nose, Mouth, Throat: denies ear pain, denies ear discharge Respiratory: No cough, No dyspnea on exertion Cardiovascular: No chest pain, No edema Gastrointestinal: No abdominal pain, No constipation, No diarrhea Genitourinary: No discharge, No dysuria Musculoskeletal: No back pain, No joint pain Past Xnaiurm-Vetgzb-Ijecai Hx Patient Social History Alcohol Use: Occasionally Uses Number of Drinks Today: 3 Alcohol Beverage of Choice: Beer Recreational Drug Use: No Smoking Status: Current Everyday Smoker Type Used: Cigarettes, Smokeless Tobacco 2nd Hand Smoke Exposure: Yes Recent Foreign Travel: No Contact w/Someone Who Travel: No Recent Infectious Disease Expo: No Recent Hopitalizations: No Physical Abuse: No Sexual Abuse: No Mistreated: No Fear: No Immunizations Up To Date Tetanus Booster (TDap): Less than 5yrs Seasonal Allergies Seasonal Allergies: No Past Medical History Surgeries: Yes (HERNIA REPAIR) Respiratory: No Cardiac: Yes Hypertension Neurological: No Reproductive Disorders: No Genitourinary: No Gastrointestinal: No Musculoskeletal: Yes Arthritis, Chronic Back Pain Endocrine: No HEENT: No Cancer: No Psychosocial: Yes Bipolar, Depression Integumentary: No Blood Disorders: No Family Medical History No Pertinent Family Hx Physical Exam Vital Signs Vital Signs - First Documented 02/15/19 00:20 Temp 97.7 Pulse 79 Resp 20 B/P (MAP) 129/91 (104) Pulse Ox 97 O2 Delivery Room Air Capillary Refill : Less Than 3 Seconds Height, Weight, BMI Height: 5'9.00" Weight: 240lbs. oz. 108.856979kf; 30.68 BMI Method:Stated General Appearance: WD/WN, no apparent distress HEENT: PERRL/EOMI, normal ENT inspection, TMs normal, pharynx normal, other (negative for Mcnally sign or raccoon eyes or hemotympanum. He has a 1.5 cm subcutaneous simple nonbleeding laceration above the right eyebrow and abrasion on the right side of his nasal bridge.) Neck: non-tender, full range of motion, supple, normal inspection Cardiovascular: normal peripheral pulses, regular rate, rhythm, no edema Respiratory: lungs clear, normal breath sounds, no respiratory distress, no accessory muscle use Peripheral Pulses: 2+ Radial Pulses (R), 2+ Radial Pulses (L) Neurologic/Psychiatric: shackler II-XII nml as tested, no motor/sensory deficits, alert, normal mood/affect, oriented x 3, other (states the double vision) Skin: normal color, warm/dry Annalise Coma Score Best Eye Response: (4) Open Spontaneously Best Verbal Response: (5) Oriented Best Motor Response: (6) Obeys Commands Craig Total: 15 Procedures/Interventions Wound Location: Face Other Wound Location Above the right eyebrow Wound Length (cm): 1.5 Wound's Depth, Shape: linear, sub Q Wound Explored: no foreign body removed Irrigated w/ Saline (ccs): 100 Betadine Prep?: Yes (chlorhexidine) Anesthesia: 1% Lidocaine Volume Anesthetic (ccs): 3 Wound Debrided: minimal Suture: Prolene Suture Size: 4-0 Number of Sutures: 3 Progress Wound was thoroughly cleaned with chlorhexidine and sterile saline and flushed and then infiltrated with 3 cc of 1% lidocaine without epinephrine. When anesthesia was obtained we applied 3 simple interrupted sutures using 4-0 Prolene. Wound was hemostatic and the patient tolerated procedure well. Progress/Results/Core Measures Results/Orders My Orders Orders - LEORA BAER Ct Head/Face/Cervical Wo (02/15/19 00:47) Vital Signs/I&O 02/15/19 00:20 Temp 97.7 Pulse 79 Resp 20 B/P (MAP) 129/91 (104) Pulse Ox 97 O2 Delivery Room Air Blood Pressure Mean: 104 Progress Progress Note : Time: 01:[address] of the head face and neck. He is up-to-date on his tetanus. Diagnostic Imaging Diagonstic Imaging: CT Plain Films/CT/US/NM/MRI: facial bones, c-spine, head Comments Negative maxillofacial CT. Negative head CT. Negative cervical spine. Reviewed: Reviewed by Me Departure Impression Primary Impression: Fall Qualified Codes: W19.XXXA - Unspecified fall, initial encounter Additional Impressions: Laceration Concussion Qualified Codes: S06.0X0A - Concussion without loss of consciousness, initial encounter Diplopia Disposition: 01 HOME, SELF-CARE Condition: Stable Departure-Patient Inst. Decision time for Depature: 01:33 Referrals: [facility] [place] (PCP/Family) Primary Care Physician Patient Instructions: Laceration Repair With Stitches (DC), Concussion, Adult (DC) Add. Discharge Instructions: Go home and get some sleep. Use Tylenol and/or ibuprofen as necessary for headache. Spend the next day sleeping and getting away from electronics, Internet, TV, reading. Straining your brain will make your headache and double vision worse. If you can continue to have double vision on Saturday follow-up with your primary care doctor. Return to the ER in 10 days to have the sutures removed. Keep them clean with regular soap and water and apply a Band-Aid daily as necessary. All discharge instructions reviewed with patient and/or family. Voiced understanding. LEORA BAER Feb 15, 2019 00:51
[2019-02-15 01:53] VITALS: BP 127/81
--- NOTE | 2019-02-15 07:59 | Diagnostic Imaging Report ---
PROCEDURE: CT head, face, and cervical spine without contrast. TECHNIQUE: Multiple contiguous axial images were obtained through the head, neck, and facial bones without the use of intravenous contrast. Sagittal and coronal reformations through the cervical spine and facial bones were also performed. Auto Exposure Controls were utilized during the CT exam to meet ALARA standards for radiation dose reduction. INDICATION: Head, face, and neck pain CT head: There is no mass, shift of the midline or hemorrhage to suggest an acute intracranial abnormality. The ventricles are not abnormally dilated and stable in size when compared to the prior from of 08/29/2018. The bone windows show no sign of a fracture or of a destructive lesion. The orbits are symmetrical and within normal limits. The sinuses where visualized and generally clear. IMPRESSION: There is no evidence for acute intracranial abnormality. When compared to prior study, there has been no significant change. CT facial bones: The orbital rims, zygomatic arches, nasal bone and mandible are intact. The sinuses are generally clear and well aerated. The orbits are symmetrical and within normal limits. IMPRESSION: There is no evidence for an acute bony abnormality. CT cervical spine: The reconstructed parasagittal images show slight straightening of cervical spine. This appearance is similar to the prior exam of 08/29/2018. The vertebral body heights are within normal limits and the intervertebral disc spaces are well-maintained. There is no fracture or acute bony abnormality identified. There is no evidence for a high-grade central stenosis. There is no sign of retropharyngeal edema. The thyroid gland is generally unremarkable. The lung apices are clear. IMPRESSION: There is no acute bony abnormality of the cervical spine. Dictated by: Dictated on workstation # [id number]
== END 2019-02-15 01:54 | disposition home or self-care (01) ==
LOC: EDUNIT# 23:12 → ER 23:15
DX: S06.0X0A Concussion without loss of consciousness, initial encounter (principal); S01.111A Laceration without foreign body of right eyelid and periocular area, initial encounter; S00.31XA Abrasion of nose, initial encounter; H53.2 Diplopia; I10 Essential (primary) hypertension; F31.9 Bipolar disorder, unspecified; F17.210 Nicotine dependence, cigarettes, uncomplicated; R40.2142 Coma scale, eyes open, spontaneous, at arrival to emergency department; R40.2252 Coma scale, best verbal response, oriented, at arrival to emergency department; R40.2362 Coma scale, best motor response, obeys commands, at arrival to emergency department; W10.1XXA Fall (on)(from) sidewalk curb, initial encounter; Y93.01 Activity, walking, marching and hiking; Y92.009 Unspecified place in unspecified non-institutional (private) residence as the place of occurrence of the external cause
CPT/HCPCS: 12011; 70450; 70486; 72125

== ENCOUNTER 2019-09-22 13:42 | Outpatient (RCR) | payer MEDICAID ==
[~2019-09-22 13:42] MED LIST changes: +PARO30TA3; +PROP40TA5; +TRM50T PO
== END 2019-11-29 | disposition home or self-care (01) ==
PROVIDERS: ATTEND Physician Assistant
DX: M54.5 Low back pain (principal)

== ENCOUNTER 2019-10-22 15:20 | Emergency (ER) | payer MEDICAID ==
[~2019-10-22] VITALS: Ht 178 cm; Wt 112.0 kg
--- NOTE | 2019-10-22 15:33 | ED Upper Extremity ---
General Chief Complaint: Laceration Stated Complaint: L THUMB LACERATION Source: patient History of Present Illness Date Seen by Provider: Oct 22, 2019 Time Seen by Provider: 15:30 Initial Comments ER with a laceration to the dorsal aspect of the left thumb from a box knife just prior to arrival. Onset: just prior to arrival Severity: moderate Pain/Injury Location: left thumb Allergies and Home Medications Allergies Coded Allergies: NKANo Known Allergies (Verified Allergy, Unknown, 11/04/05) Home Medications Tramadol HCl 50 Mg Tablet, 1 TAB PO UD, (Reported) Patient Home Medication List Home Medication List Reviewed: Yes Review of Systems Constitutional: see HPI EENTM: see HPI Respiratory: no symptoms reported Cardiovascular: no symptoms reported Genitourinary: no symptoms reported Musculoskeletal: no symptoms reported Skin: see HPI Psychiatric/Neurological: No Symptoms Reported Past Eyjlojh-Jnzzng-Qazkuy Hx Patient Social History Alcohol Beverage of Choice: Beer Type Used: Cigarettes, Smokeless Tobacco 2nd Hand Smoke Exposure: Yes Recent Foreign Travel: No Contact w/Someone Who Travel: No Recent Hopitalizations: No Immunizations Up To Date Tetanus Booster (TDap): Less than 5yrs Seasonal Allergies Seasonal Allergies: No Past Medical History Surgeries: Yes (HERNIA REPAIR) Respiratory: No Cardiac: Yes Hypertension Neurological: No Reproductive Disorders: No Genitourinary: No Gastrointestinal: No Musculoskeletal: Yes Arthritis, Chronic Back Pain Endocrine: No HEENT: No Cancer: No Psychosocial: Yes Bipolar, Depression Integumentary: No Blood Disorders: No Family Medical History No Pertinent Family Hx Physical Exam Vital Signs Capillary Refill : Height, Weight, BMI Height: 5'9.00" Weight: 240lbs. oz. 108.172410ov; 30.68 BMI Method:Stated General Appearance: WD/WN, no apparent distress Respiratory: no respiratory distress, no accessory muscle use Shoulder: normal inspection, non-tender Elbow/Forearm: normal inspection, non-tender Wrist: Yes normal inspection Hand: Left, laceration (2 cm superficial laceration to the dorsal aspect distal phalanx left thumb proximal to the nail without nail injury. He states he is only here because he's having trouble getting it to quit bleeding at home.Procedure noteScrubbed with chlorhexidine/saline solution then patted dry, finger turnicot applied and glue applied over this for the sake of hemostasis.) Neurologic/Psychiatric: alert, normal mood/affect, oriented x 3 Skin: normal color, warm/dry Procedures/Interventions Suture Size: 4-0 Departure Impression Primary Impression: Thumb laceration Disposition: 01 HOME, SELF-CARE Condition: Stable Departure-Patient Inst. Decision time for Depature: 15:32 Referrals: NO,LOCAL PHYSICIAN (PCP) Primary Care Physician YUNIEL SEGURA (Family) Primary Care Physician Patient Instructions: Laceration Repair With Glue (DC) Add. Discharge Instructions: 1. Do not pick at this, lipid glue fall off on its own in about 3-5 days. You can wash it gently with soap and water but do not scrub or applied any lotions creams or ointments. Wear the splint to keep from bending the finger for the next 2-3 days. All discharge instructions reviewed with patient and/or family. Voiced understanding. TERESO MUSE TECHNICAL TRAINER Oct 22, 2019 15:33
[2019-10-22] MEDS ORDERED: TETANUS,DIPTH,PERTUSS P/F (BOOSTRIX) 0.5 ML VIAL IM ONE (15:45)
[2019-10-22 16:00] VITALS: BP 113/88
== END 2019-10-22 15:59 | disposition home or self-care (01) ==
LOC: EDUNIT# 15:20 → ER 15:22
DX: S61.021A Laceration with foreign body of right thumb without damage to nail, initial encounter (principal); Z23 Encounter for immunization; Z77.22 Contact with and (suspected) exposure to environmental tobacco smoke (acute) (chronic); W26.0XXA Contact with knife, initial encounter
CPT/HCPCS: 12001; 90471; 90715

== ENCOUNTER 2019-12-28 22:25 | Emergency (ER) | payer MEDICAID ==
[~2019-12-28] VITALS: Ht 177.8 cm; Wt 112.5 kg
[2019-12-28] MEDS ORDERED: NAPR-1071 PO (22:58)
[2019-12-28] MEDS ORDERED: AMOX500C2 PO (22:58)
--- NOTE | 2019-12-28 22:58 | ED EENT ---
History of Present Illness General Chief Complaint: Nasal Problems Stated Complaint: FALL,NOSE INJ Source: patient Exam Limitations: no limitations History of Present Illness Date Seen by Provider: Dec 28, 2019 Time Seen by Provider: 22:56 Initial Comments Patient fell forward after tripping over a curb and struck his nose. He's had a bloody nose since this happened earlier today. Did not lose consciousness no neck pain. Timing/Duration: abrupt Severity: moderate Associated Symptoms: facial pain/swelling Allergies and Home Medications Allergies Coded Allergies: NKANo Known Allergies (Verified Allergy, Unknown, 11/04/05) Home Medications Tramadol HCl 50 Mg Tablet, 1 TAB PO UD, (Reported) Patient Home Medication List Home Medication List Reviewed: Yes Review of Systems Review of Systems Constitutional: see HPI Eyes: No Symptoms Reported Ears: No Symptoms Reported Nose: see HPI Mouth: no symptoms reported Respiratory: no symptoms reported Musculoskeletal: no symptoms reported Skin: no symptoms reported Past Zrkgqdl-Sfvkpr-Cmrego Hx Patient Social History Alcohol Beverage of Choice: Beer, Whiskey Type Used: Smokeless Tobacco Former Smoker, Quit: Oct 06, 2016 2nd Hand Smoke Exposure: Yes Recent Foreign Travel: No Contact w/Someone Who Travel: No Recent Hopitalizations: No Immunizations Up To Date Tetanus Booster (TDap): Less than 5yrs Seasonal Allergies Seasonal Allergies: No Past Medical History Surgeries: Yes (HERNIA REPAIR) Respiratory: No Cardiac: Yes Hypertension Neurological: No Reproductive Disorders: No Genitourinary: No Gastrointestinal: No Musculoskeletal: Yes Arthritis, Chronic Back Pain Endocrine: No HEENT: No Cancer: No Psychosocial: Yes Bipolar, Depression Integumentary: No Blood Disorders: No Family Medical History No Pertinent Family Hx Physical Exam Height, Weight, BMI Height: 5'9.00" Weight: 240lbs. oz. 108.239373cu; 35.00 BMI Method:Stated General Appearance: WD/WN, no apparent distress Eyes: bilateral eye normal inspection, bilateral eye PERRL, bilateral eye EOMI Ears: bilateral ear auricle normal, bilateral ear canal normal, bilateral ear TM normal Nose: other (swelling mostly to the right side of the bridge of the nose. No septal hematoma. Minimal oozing of blood mostly from the right nostril. Extraocular muscles are intact.) Respiratory: no respiratory distress, no accessory muscle use Neurologic/Psychiatric: alert, normal mood/affect, oriented x 3 Skin: normal color, warm/dry Procedures/Interventions Suture Size: 4-0 Progress/Results/Core Measures Results/Orders My Orders Orders - TERESO MUSE APRN Nasal Bones 3 Views (12/28/19 22:55) Oxymetazoline 0.05% Nasal [place] (Afrin 0. (12/29/19 09:00) Rx-Hydrocodone/Apap 5-325 Mg (Rx-Vicodin (12/28/19 23:00) Amoxicillin/Clavulanate Tablet (Augmenti (12/28/19 23:00) Departure Impression Primary Impression: Nasal bone fracture Qualified Codes: S02.2XXA - Fracture of nasal bones, initial encounter for closed fracture Disposition: HOME, SELF-CARE Condition: Stable Departure-Patient Inst. Decision time for Depature: 22:57 Referrals: [facility] [place] (PCP) Primary Care Physician YUNIEL SEGURA (Family) Primary Care Physician Patient Instructions: Nose Fracture Add. Discharge Instructions: 1. Antibiotics and pain medication as directed. Follow-up with Dr. Colvin. Call tomorrow to make an appointment to be seen. Return to ER for any worsening. All discharge instructions reviewed with patient and/or family. Voiced understanding. Scripts Naproxen (Naprosyn) 500 Mg Tablet 500 MG PO BID PRN for PAIN-MODERATE (5-7), #30 TAB 0 Refills Prov: TERESO MUSE APRN 12/28/19 Amoxicillin (Amoxicillin) 500 Mg Capsule 500 MG PO TID, #21 CAP 0 Refills Prov: TERESO MUSE APRN 12/28/19 TERESO MUSE APRN Dec 28, 2019 22:58
[2019-12-28] MEDS ORDERED: AUGMENTIN 875 MG TAB (AMOXICILLIN/CLAVULANATE) PO SCH (23:00)
[2019-12-28] MEDS ORDERED: RX-HYDROCODONE/APAP 5/325 MG #4 TAB PK PO PRN (23:00)
--- OUTSIDE RECORDS SUMMARY | 2019-12-28 23:05 | XMS REPORT ---
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 functional status information available.No functio nal status information available.No functional status information available.No f unctional status information available.No functional status information availabl e.No functional status information available. Mental Status No Information Encounters Encounter Normalized Encounter Encounter Diagnosis Care Provi lorraine Organization Date Type 12-12-2018 ([facility]) Chronic Health Lumbago with sciatica, [facility] - Maintenance right side phone) (no phone) 12-12-2018 - 12-12-2018 07-04-2018 ([facility]) Chronic Health Unspecified mood [facility] SEGURA [facility] ([place] - Maintenance [affective] disorder phone) (no p balaji) 07-04-2018 - 07-04-2018 06-06-2018 ([facility]) Chronic Health Anxiety disorder, YUNIEL SEGURA [facility] ([place] - Maintenance unspecified phone) (no phone) 06-06-2018 - 06-06-2018 05-20-2018 (WALK-IN) Walk-In Care Dysuria MAVERICK STORM (n o [facility] - phone) CARE (no phone) 05-20-2018 - 05-20-2018 04-23-2019 [facility] Essential (primary) YUNIEL GARCIA (no [facility] hypertension phone) (no phone) 01-22-2019 Consultation for Lumbago with sciatica, YUNIEL Bright [facility] ([place] - laboratory medicine left side phone) (no ph one) 01-22-2019 - 01-22-2019 10-22-2019 Emergency department no information TERESO DOSHI (no [facility] - patient visit phone) [facility] 10-22-2019 (no phone) 02-14-2019 Emergency department no information no name no organization name - patient visit 02-14-2019 01-17-2019 Emergency department no information no name no organization name - patient visit 01-17-2019 01-16-2019 Emergency department no information no name no organization name - patient visit 01-16-2019 12-08-2018 Emergency department no information CARYN LEVIN ( no no organization name - patient visit phone) 12-08-2018 08-29-2018 Emergency department no information LEORA BAER Work no organization name - patient visit Phone: 08-29-2018 11-14-2014 Emergency department no information no name no organization name - patient visit 11-15-2014 10-24-2011 Emergency department no information no name no organization name - patient visit 10-24-2011 02-20-2018 Limit oral eval problm no information no name no organization name focus 12-13-2017 Patient encounter no information no name no or ganization name NEGATED Patient encounter no information no name no or ganization name 04-08-2017 10-22-2019 Patient encounter no information TERESO MUSE APRN (no [facility] procedure phone) [facility] (no phone) 09-22-2019 Patient encounter no information ANKITA Whyte SWEET PA (no [facility] - procedure phone) [facility] 11-28-2019 (no phone) 09-16-2019 Patient encounter no information ANKITA Isabell SWEET PA (no [facility] procedure phone) [facility] (no phone) 09-14-2019 Patient encounter no information ANKITA Isabell SWEET PA (no [facility] procedure phone) [facility] (no phone) 09-10-2019 Patient encounter no information ANKITA R SWEET PA (no [facility] procedure phone) [facility] (no phone) 09-07-2019 Patient encounter no information ANKITA R SWEET PA (no [facility] procedure phone) [facility] (no phone) 09-04-2019 Patient encounter Lumbago with sciatica, [facility]EL DON RL [facility] procedure left side phone) (no phone) 09-02-2019 Patient encounter no information ANKITA Isabell SWEET PA (no [facility] procedure phone) [facility] (no phone) 08-31-2019 Patient encounter no information ANKITA Isabell SWEET PA (no [facility] procedure phone) [facility] (no phone) 04-23-2019 Patient encounter no information no name no or ganization name procedure 02-15-2019 Patient encounter no information no name no or ganization name procedure 01-22-2019 Patient encounter no information no name no or ganization name procedure 01-22-2019 Patient encounter no information no name no or ganization name procedure 01-17-2019 Patient encounter no information no name no or ganization name procedure 01-16-2019 Patient encounter no information no name no or ganization name procedure 12-12-2018 Patient encounter no information no name no or ganization name procedure 12-08-2018 Patient encounter no information no name no or ganization name procedure 08-29-2018 Patient encounter no information no name no or ganization name procedure 07-04-2018 Patient encounter no information no name no or ganization name procedure 06-06-2018 Patient encounter no information no name no or ganization name procedure 05-20-2018 Patient encounter no information no name no or ganization name procedure Patient encounter no information (no phone) [facility] (no phone) 08-28-2019 Telephone encounter Lumbago with sciatica, YUNIEL SEGURA (no [facility] right side phone) (no phone) 07-06-2019 Telephone encounter Lumbago with sciatica, YUNIEL SEGURA (no [facility] ([place] right side phone) (no phone) 05-29-2019 Telephone encounter Lumbago with sciatica, YUNIEL SEGURA (no [facility] ([place] right side phone) (no phone) 04-24-2019 Telephone encounter no information YUNIEL SEGURA (no [facility] phone) (no phone) 04-07-2019 Telephone encounter Lumbago with sciatica, YUNIEL SEGURA (no [facility] ([place] right side phone) (no phone) 02-26-2019 Telephone encounter Lumbago with sciatica, YUNIEL SEGURA (no [facility] ([place] - right side phone) (no phone) 02-26-2019 - 02-26-2019 01-21-2019 Telephone encounter Lumbago with sciatica, YUNIEL SEGURA (no [facility] ([place] - left side phone) (no phone) 01-21-2019 - 01-21-2019 01-13-2019 Telephone encounter Lumbago with sciatica, YUNIEL SEGURA (no [facility] ([place] - right side phone) (no phone) 01-13-2019 - 01-13-2019 11-05-2018 Telephone encounter Unspecified mood YUNIEL SEGURA ( no [facility] - [affective] disorder phone) (no phone ) 11-05-2018 - 11-05-2018 09-24-2018 Telephone encounter Unspecified mood YUNIEL SEGURA ( no [facility] - [affective] disorder phone) (no phone ) 09-24-2018 - 09-24-2018 08-13-2018 Telephone encounter Unspecified mood YUNIEL SEGURA ( no [facility] - [affective] disorder phone) (no phone ) 08-13-2018 - 08-13-2018 05-15-2018 Telephone encounter Lumbago with sciatica, YUNIEL SEGURA (no [facility] ([facility] - left side phone) (no phone) 05-15-2018 - 05-15-2018 04-03-2018 Telephone encounter Lumbago with sciatica, YUNIEL SEGURA (no [facility] ([place] - left side phone) (no phone) 04-03-2018 - 04-03-2018 Medical Equipment No Information Payers The data below is from unstructured sources Payer Name Policy Number Subscriber Name Relationship [facility] [id number] Darlin Maharaj 01 Self / Same As Patient History general Narrative - Reported Note Type Note Facility History general Narrative - Reported Type Medical Hypothyroidism History Medical back pain History Medical attention deficit hyperacti vity disorder History Medical hernia as a child History Medical Bi-polar dx History Surgical hernia surgery as a child History Hospitaliz hernia surgery as a child ation History [facility] ([id number]) Summary Purpose eClinicalWorks SubmissioneClinicalWorks SubmissioneClinicalWorks SubmissioneClinicalWorks SubmissioneClinicalWorks SubmissioneClinicalWorks SubmissioneClinicalWorks SubmissioneClinicalWorks SubmissioneClinicalWorks Submission Advance Directives Directive Response Recor ded Date/Time Advance Directives No 10:08pm Health Care Power of Mental Hygienist No 02/26/16 10:08pm Organ Donor No 02/26/16 10:08pm Resuscitation Status Full Code 02/26/16 10:08pm Directive Response Recor ded Date/Time Advance Directives No 7:38pm Health Care Power of Mental Hygienist No 06/12/16 7:38pm Organ Donor No 06/12/16 7:38pm Resuscitation Status Full Code 06/12/16 7:38pm Directive Response Recor ded Date/Time Advance Directives No 8:22pm Health Care Power of Mental Hygienist No 10/16/16 8:22pm Organ Donor No 10/16/16 8:22pm Resuscitation Status Full Code 10/16/16 8:22pm Directive Response Recor ded Date/Time Advance Directives No 10:09pm Health Care Power of Mental Hygienist No 11/13/15 10:09pm Organ Donor No 11/13/15 10:09pm Resuscitation Status Full Code 11/13/15 10:09pm Directive Response Recor ded Date/Time Advance Directives No 11:54am Health Care Power of Mental Hygienist No 05/08/14 11:54am Organ Donor No 05/08/14 11:54am Resuscitation Status Full Code 05/08/14 11:54am Directive Response Recor ded Date Advance Directives N 4:04pm Health Care Power of Mental Hygienist N 11/03/12 4:04pm Organ Donor N 11/03/12 4 :04pm Directive Response Recor ded Date/Time Advance Directives No 9:46pm Health Care Power of Mental Hygienist No 11/14/14 9:46pm Organ Donor No 11/14/14 9:46pm Resuscitation Status Full Code 11/14/14 9:46pm Directive Response Recor ded Date/Time Advance Directives No 4:32pm Health Care Power of Mental Hygienist No 04/08/17 4:32pm Organ Donor No 04/08/17 4:32pm Resuscitation Status Full Code 04/08/17 4:32pm Directive Response Recor ded Date/Time Advance Directives No 8:47pm Health Care Power of Mental Hygienist No 04/08/17 4:32pm Organ Donor No 04/08/17 4:32pm Resuscitation Status Full Code 08/29/18 8:47pm Directive Response Recor ded Date/Time Advance Directives No 11:12am Health Care Power of Mental Hygienist No 12/08/18 11:12am Organ Donor No 12/08/18 11:12am Resuscitation Status Full Code 12/08/18 11:12am Discharge Instructions No hospital discharge instructions.No hospital discharge instructions.No hospital discharge instruction information available.No hospital discharge instructions.No hospital discharge instructions.No hospital discharge instructions.No hospital discharge instruction information available.No hospital discharge instruction information available.No hospital discharge instruction information available. Chief Complaint and Reason for Visit Chief Complaint Trauma-Non Activatio n Reason for Visit Concussion Retrograde amnesia Hematoma of scalp Laceration of left hand Chief Complaint Upper Extremity Reason for Visit [id number] Additional Source Comments This clinical document has been generated using [employer] software that has been certified by the Office of the National Coordinator for Health Information Technology (ONC 15.99.04.3023.Diam.31.00.0.161095) and the National Committee for Inspection Engineer (NCQA, as an eMeasure certified technology). FOR RECORDS PERTAINING TO PATIENTS WHO ARE OR HAVE BEEN ENROLLED IN A CHEMICAL D EPENDENCY/SUBSTANCE ABUSE PROGRAM, SOME INFORMATION MAY BE OMITTED. This clinica l summary was aggregated from multiple sources. Caution should be exercised in using it in the provision of clinical care. This summary normalizes information from multiple sources, and as a consequence, information in this document may ma terially change the coding, format and clinical context of patient data. In malinda tion, data may be omitted in some cases. CLINICAL DECISIONS SHOULD BE BASED ON T HE PRIMARY CLINICAL RECORDS. [employer] provides no warranty or guara ntee of the accuracy or completeness of information in this document.The followi ng information is based on time limited clinical information UNRECOGNIZED CONTENT PROVIDED BELOW FOR UNRECOGNIZED SECTION MEDICAL (GENERAL) HISTORY Type Description Date Medical History Hypothyroidism Medical History back pain Medical History attention deficit hy peractivity disorder Medical History hernia as a child Medical History Bi-polar dx Surgical History hernia surgery as a child Hospitalization History hernia surge ry as a child Hospitalization History chest pain 2014 Type Description Date Medical History Hypothyroidism Medical History back pain Medical History attention deficit hy peractivity disorder Medical History hernia as a child Medical History Bi-polar dx Surgical History hernia surgery as a child Hospitalization History hernia surge ry as a child Hospitalization History chest pain 2014 Hospitalization History [facility] 11/2018 UNRECOGNIZED CONTENT PROVIDED BELOW FOR UNRECOGNIZED SECTION REASON FOR VISIT Refill requestProphyControlled Med RefillControlled Med RefillPainful Urination started about 1 week ago JStrasserRNPain management (chronic), PT reports his BP has been running high for the last week. PT notes dizzyness, headahes and chest pain. -Silver HOLCOMB, PT reports he has been dealing with a lot of anger issues a nd depression build up. Pt notes he would like to set up to see behavioral. -And robinson MASTERS-Rosa
--- OUTSIDE RECORDS SUMMARY | 2019-12-28 23:06 | XMS REPORT ---
Author Author Varun SEGURA Organization [facility] Address [address] [place] [address] Care Team Providers Care Narcotics Investigator Name Role Phone YUNIEL SEGURA Unavailable PROBLEMS Type Condition ICD9-CM Code QHG07-CA Code Onset Dates Condition S tatus SNOMED Code Problem Hypertension, benign I10 Active 95912514 Problem Mood disorder F39 Active 373382 05 Problem Lumbago with sciatica, left side M54.42 Active 356624086 Problem Lumbago with sciatica, right side M54.41 Active 926273446 Problem Anxiety F41.9 Active 17261259 ALLERGIES No Information ENCOUNTERS Encounter Location Date Diagnosis [place] [address] [address] Feb, Lumbago with sciatica, right side M54.41 [place] [address] [address] Jan, Lumbago with sciatica, left side M54.42 [place] [address] [address] Jan, Lumbago with sciatica, left side M54.42 [place] [address] [address] Jan, Lumbago with sciatica, right side M54.41 [place] [address] [address] Dec, Lumbago with sciatica, right side M54.41 and Lumbago with sciatica, left side M54.42 [place] [address] [address] [place] [id number] [place] [address] November, Mood disorder F39 [place] [address] [address] [facility] [id number] [address] [place] [id number] Sep, Mood disorder F39 [facility] [address] [facility] [id number] [address] [place] [phone] Aug, Mood disorder F39 [facility] [address] [facility] [id number] [address] [place] [phone] Jun, Mood disorder F39 [facility] [address] [facility] [id number] [address] [place] [phone] May, Anxiety F41.9 and Hypertensi on, benign I10 [facility] [address] [facility] [id number] [address] [place] [id number] May, Dysuria R30.0 and Acute urin anton tract infection N39.0 [facility] [address] [facility] [id number] [address] [place] [id number] May, Lumbago with sciatica, left side M54.42 [facility] [address] [place] [id number] [address] [place] [id number] Mar, Lumbago with sciatica, left side M54.42 [facility] [address] [place] [id number] [address] [place] [address] Feb, Lumbago with sciatica, left side M54.42 [facility] [address] [place] [id number] [address] [place] [id number] Feb, [facility] [address] [place] [id number] [address] [place] [id number] Feb, Encounter for dental examina tion Z01.20 [facility] [address] [facility] [id number] [address] [place] [address] Dec, Lumbago with sciatica, left side M54.42 [facility] [address] [facility] [id number] [address] [place] [phone] May, Lumbago with sciatica, left side M54.42 ; Lumbago with sciatica, right side M54.41 and Encounter for immunization Z23 [facility] [address] [id number] [address] [place] [id number] Apr, Lumbago with sciatica, left side M54.42 [facility] [address] [id number] [address] [place] [id number] Apr, Dental caries K02.9 [facility] [address] [id number] [address] [place] [id number] Apr, [facility] [address] [id number] [address] [place] [id number] Apr, Dental examination Z01.20 [facility] [address] [id number] [address] [place] [id number] Feb, Lumbago with sciatica, right side M54.41 [facility] [address] [id number] [address] [place] [id number] Jan, Lumbago with sciatica, right side M54.41 [facility] [address] [id number] [address] [place] [id number] Dec, Lumbago with sciatica, right side M54.41 [facility] [address] [id number] [address] [place] [id number] November, Lumbago with sciatica, right side M54.41 [facility] [address] [id number] [address] [place] [id number] Oct, Lumbago with sciatica, left side M54.42 [facility] [address] [id number] [address] [place] [phone] Sep, [facility] [address] [id number] [address] [place] [phone] Aug, [facility] [address] [facility] [id number] [address] [place] [id number] Jul, [facility] [address] [id number] [address] [place] [address], [place] [address] May, [facility] [address] [id number] [address] [place] [address], [place] [address] Apr, [facility] [address] [id number] [address] [place] [address], [place] [address] Mar, [facility] [address] [id number] [address] [place] [address], [place] [address] Feb, [facility] [address] [id number] [address] [place] [address], [place] [address] Jan, Low back pain M54.5 [facility] [address] [id number] [address] [place] [address], [place] [address] Dec, [facility] [address] [id number] [address] [place] [address], [place] [address] November, [facility] [address] [id number] [address] [place] [address], [place] [address] Oct, [facility] [address] [id number] [address] [place] [address], [place] [address] Sep, [facility] [address] [id number] [address] [place] [address], [place] [address] Aug, Low back pain M54.5 [facility] [address] [id number] [address] [place] [address], [place] [address] Jul, [facility] [address] [id number] [address] [place] [address], [place] [address] Jun, [facility] [address] [id number] [address] [place] [address], [place] [address] Apr, [facility] [address] [id number] [address] [place] [address], [place] [address] Feb, [facility] [address] [id number] [address] [place] [address], [place] [address] Jan, Hypertension 401.9 [facility] [address] [id number] [address] [place] [id number] 17 Jan, 2015 Hypertension 401.9 [facility] [address] [id number] [address] [place] [phone] 17 Dec, 2014 Diarrhea 787.91 and Hyperten caryn 401.9 [facility] [address] [id number] [address] [place] [phone] November, GERD (gastroesophageal reflu x disease) 530.81 [facility] [address] [id number] [address] [place] [id number] 14 Oct, 2014 [facility] [address] [id number] [address] [place] [phone] Oct, [facility] [address] [id number] [address] [place] [phone] Sep, [facility] [address] [id number] [address] [place] [phone] Sep, [facility] [address] [id number] [address] [place] [phone] Aug, [facility] [address] [id number] [address] [place] [phone] Aug, [facility] [address] [facility] [id number] [address] [place] [phone] May, [facility] [address] [id number] [address] [place] [phone] May, [facility] [address] [id number] [address] [place] [phone] November, [facility] [address] [id number] [address] [place] [phone] November, [facility] [address] [id number] [address] [place] [phone] Oct, [facility] [address] [id number] [address] [place] [phone] Oct, [facility] [address] [id number] [address] [place] [address], [place] [address] Aug, [facility] [address] [id number] [address] [place] [address], [place] [address] Aug, [facility] [address] [id number] [address] [place] [address], [place] [address] Jun, [facility] [address] [id number] [address] [place] [address], [place] [address] Jun, [facility] [address] [id number] [address] [place] [address], [place] [address] Apr, [facility] [address] [id number] [address] [place] [address], [place] [address] Apr, [facility] [address] [id number] [address] [place] [address], [place] [address] Apr, [facility] [address] [id number] [address] [place] [address], [place] [address] Jan, [facility] [address] [id number] [address] [place] [address], [place] [address] Jan, [facility] [address] [id number] [address] [place] [phone] November, [facility] [address] [id number] [address] [place] [address], [place] [address] Jun, [facility] [address] [id number] [address] [place] [id number] 14 Jun, 2010 [facility] [address] [id number] [address] [place] [address], [place] [address] 16 May, 2010 [facility] [address] [id number] [address] [place] [address], [place] [address] May, [facility] [address] [id number] [address] [place] [address], [place] [address] 19 Apr, 2010 [facility] [address] [id number] [address] [place] [address], [place] [address] 14 Apr, 2010 IMMUNIZATIONS No Known Immunizations SOCIAL HISTORY Never Assessed REASON FOR VISIT Tramadol PLAN OF CARE VITAL SIGNS MEDICATIONS Medication Instructions Dosage Frequency Start Date End Date Duration S johanna Tramadol HCl 50 MG Orally every 6 [...] Hospitalization History chest pain 2014 Hospitalization History [facility] - right wrist 11/2018
--- OUTSIDE RECORDS SUMMARY | 2019-12-28 23:06 | XMS REPORT ---
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 Active 468294299 Problem Lumbago with sciatica, right side M54.41 Active 422923042 Problem Anxiety F41.9 Active 04449738 ALLERGIES No Information ENCOUNTERS Encounter Location Date Diagnosis [place] [address] [address] Feb, Lumbago with sciatica, right side M54.41 [place] [address] [address] Jan, Lumbago with sciatica, left side M54.42 [place] [address] [address] Jan, Lumbago with sciatica, left side M54.42 [place] [address] [address] Jan, Lumbago with sciatica, right side M54.41 [place] [address] [address] Dec, Lumbago with sciatica, right side M54.41 and Lumbago with sciatica, left side M54.42 [place] [address] [address] [place] [id number] [address] [place] [address] November, Mood disorder F39 [place] [address] [address] [facility] [id number] [address] [place] [address] Sep, Mood disorder F39 [facility] [place] [address] [facility] [id number] [address] [place] [address] Aug, Mood disorder F39 [facility] [place] [address] [facility] [id number] [address] [place] [address] Jun, Mood disorder F39 [facility] [place] [address] [facility] [id number] [address] [place] [address] May, Anxiety F41.9 and Hypertensi on, benign I10 [facility] [address] [facility] [id number] [address] [place] [address] May, Dysuria R30.0 and Acute urin anton tract infection N39.0 [facility] [place] [address] [facility] [id number] [address] [place] [address] May, Lumbago with sciatica, left side M54.42 [facility] [place] [address] [place] [id number] [address] [place] [address] Mar, Lumbago with sciatica, left side M54.42 [facility] [place] [address] [place] [id number] [address] [place] [address] Feb, Lumbago with sciatica, left side M54.42 [facility] [place] [address] [place] [id number] [address] [place] [address] Feb, [facility] [address] [place] [id number] [address] [place] [id number] Feb, Encounter for dental examina tion Z01.20 [facility] [place] [address] [facility] [id number] [address] [place] [address] Dec, Lumbago with sciatica, left side M54.42 [facility] [place] [address] [facility] [id number] [address] [place] [address] May, Lumbago with sciatica, left side M54.42 ; Lumbago with sciatica, right side M54.41 and Encounter for immunization Z23 [facility] [place] [address] [id number] [address] [place] [address] Apr, Lumbago with sciatica, left side M54.42 [facility] [address] [id number] [address] [place] [id number] Apr, Dental caries K02.9 [facility] [place] [address] [id number] [address] [place] [address] Apr, [facility] [address] [id number] [address] [place] [address] [id number] Apr, Dental examination Z01.20 [facility] [place] [address] [id number] [address] [place] [address] Feb, Lumbago with sciatica, right side M54.41 [facility] [place] [address] [id number] [address] [place] [address] Jan, Lumbago with sciatica, right side M54.41 [facility] [place] [address] [id number] [address] [place] [phone] Dec, Lumbago with sciatica, right side M54.41 [facility] [place] [address] [id number] [address] [place] [address] November, Lumbago with sciatica, right side M54.41 [facility] [place] [address] [id number] [address] [place] [address] Oct, Lumbago with sciatica, left side M54.42 [facility] [place] [address] [id number] [address] [place] [address] Sep, [facility] [place] [address] [id number] [address] [place] [address] Aug, [facility] [place] [address] [facility] [id number] [address] [place] [address] Jul, [facility] [place] [facility] [address] [id number] [address] [place] [address], [place] [address] May, [facility] [address] [id number] [address] [place] [address], [place] [address] Apr, [facility] [address] [id number] [address] [place] [address], [place] [address] Mar, [facility] [address] [id number] [address] [place] [address], [place] [address] Feb, [facility] [address] [id number] [address] [place] [address], [place] [address] Jan, Low back pain M54.5 [facility] [address] [id number] [address] [place] [address], [place] [address] Dec, [facility] [address] [id number] [address] [place] [address], [place] [address] November, [facility] [address] [id number] [address] [place] [address], [place] [address] Oct, [facility] [address] [id number] [address] [place] [address], [place] [address] Sep, [facility] [address] [id number] [address] [place] [address], [place] [address] Aug, Low back pain M54.5 [facility] [address] [id number] [address] [place] [address], [place] [address] Jul, [facility] [address] [id number] [address] [place] [address], [place] [address] Jun, [facility] [address] [id number] [address] [place] [address], [place] [address] Apr, [facility] [address] [id number] [address] [place] [address], [place] [address] Feb, [facility] [address] [id number] [address] [place] [address], [place] [address] Jan, Hypertension 401.9 [facility] [place] [facility] [address] [id number] [address] [place] [address] 17 Jan, 2015 Hypertension 401.9 [facility] [place] [address] [id number] [address] [place] [phone] 17 Dec, 2014 Diarrhea 787.91 and Hyperten caryn 401.9 [facility] [place] [address] [id number] [address] [place] [address] November, GERD (gastroesophageal reflu x disease) 530.81 [facility] [place] [address] [id number] [address] [place] [phone] 14 Oct, 2014 [facility] [place] [address] [id number] [address] [place] [address] Oct, [facility] [place] [address] [id number] [address] [place] [address] Sep, [facility] [place] [address] [id number] [address] [place] [phone] Sep, [facility] [place] [address] [id number] [address] [place] [id number] Aug, [facility] [place] [address] [id number] [address] [place] [phone] Aug, [facility] [place] [address] [facility] [id number] [address] [place] [id number] May, [facility] [place] [address] [id number] [address] [place] [phone] May, [facility] [place] [address] [id number] [address] [place] [address] November, [facility] [place] [address] [id number] [address] [place] [address] November, [facility] [place] [address] [id number] [address] [place] [phone] Oct, [facility] [place] [address] [id number] [address] [place] [address] Oct, [facility] [address] [id number] [address] [place] [address], [place] [address] Aug, [facility] [address] [id number] [address] [place] [address], [place] [address] Aug, [facility] [address] [id number] [address] [place] [address], [place] [address] Jun, [facility] [address] [id number] [address] [place] [address], [place] [address] Jun, [facility] [address] [id number] [address] [place] [address], [place] [address] Apr, [facility] [address] [id number] [address] [place] [address], [place] [address] Apr, [facility] [address] [id number] [address] [place] [address], [place] [address] Apr, [facility] [address] [id number] [address] [place] [address], [place] [address] Jan, [facility] [address] [id number] [address] [place] [address], [place] [address] Jan, [facility] [address] [id number] [address] [place] [address] November, [facility] [address] [id number] [address] [place] [address], [place] [address] Jun, [facility] [address] [id number] [address] [place] [id number] 14 Jun, 2010 [facility] [address] [id number] [address] [place] [address], [place] [address] 16 May, 2010 [facility] [address] [id number] [address] [place] [address], [place] [address] May, [facility] [address] [id number] [address] [place] [address], [place] [address] 19 Apr, 2010 [facility] [address] [id number] [address] [place] [address], [place] [address] 14 Apr, 2010 IMMUNIZATIONS Vaccine Route Administration Date Status FLULAVAL (3 & UP) 2013 Unknown Jun 04, 2014 Administe red SOCIAL HISTORY Never Assessed REASON FOR VISIT PLAN OF CARE VITAL SIGNS Height 68 in 2014-06-04 Weight 245 lbs 2014-06-04 Temperature 98 degrees Fahrenheit 2014-06-04 Heart Rate 88 bpm 2014-06-04 Respiratory Rate 18 2014-06-04 Blood pressure systolic 122 mmHg 2014-06-04 Blood pressure diastolic 70 mmHg 2014-06-04 MEDICATIONS Unknown Medications RESULTS No Results PROCEDURES Procedure Date Ordered Result Body Site DRUG SCREEN, QUALITATE/MULTI Jun 04, 2014 URINALYSIS, AUTO, W/O SCOPE Jun 04, 2014 INSTRUCTIONS MEDICATIONS ADMINISTERED No Known Medications MEDICAL (GENERAL) HISTORY Type Description Date Medical History Hypothyroidism Medical History back pain Medical History attention deficit hyperactivity disorder Medical History hernia as a child Medical History Bi-polar dx Surgical History hernia surgery as a child Hospitalization History hernia surgery as a child Hospitalization History chest pain 2014 Hospitalization History [facility] - right wrist 11/2018
--- OUTSIDE RECORDS SUMMARY | 2019-12-28 23:06 | XMS REPORT ---
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 Active 949220981 Problem Lumbago with sciatica, right side M54.41 Active 787686201 Problem Anxiety F41.9 Active 48771004 Problem Hypertension, benign I10 Active 17726513 ALLERGIES No Information ENCOUNTERS Encounter Location Date Diagnosis [place] [address] [address] Aug, Lumbago with sciatica, left side M54.[address] [address] Aug, Lumbago with sciatica, right side M54.[address] [address] Jun, Lumbago with sciatica, right side M54.[address] [address] May, Lumbago with sciatica, right side M54.41 [place] [address] [address] Apr, [address] [address] Apr, Hypertension, benign I10 ; Low back pain M54.5 and Other chronic pain G89.29 [place] [address] [place] [address] Apr, Lumbago with sciatica, right side M54.41 [place] [address] [address] Feb, Lumbago with sciatica, right side M54.41 [place] [address] [address] Jan, Lumbago with sciatica, left side M54.42 [facility] [address] [address] Jan, Lumbago with sciatica, left side M54.42 [place] [address] [address] Jan, Lumbago with sciatica, right side M54.41 [place] [address] [address] Dec, Lumbago with sciatica, right side M54.41 and Lumbago with sciatica, left side M54.42 [place] [address] [address] November, Mood disorder F39 [place] [address] [address] Sep, Mood disorder F39 [place] [address] [address] Aug, Mood disorder F39 [place] [address] [address] Jun, Mood disorder F39 [place] [address] [address] May, Anxiety F41.9 and Hypertension, benign I 10 [facility] [address] [facility] [id number] [address] [place] [address] May, Dysuria R30.0 and Acute urin anton tract infection N39.0 [facility] [address] [address] May, Lumbago with sciatica, left side M54.42 [place] [address] [address] Mar, Lumbago with sciatica, left side M54.42 [place] [address] [address] Feb, Lumbago with sciatica, left side M54.42 [place] [address] [address] Feb, [facility] [address] [id number] Feb, Encounter for dental examination Z01.20 [place] [address] [address] Dec, Lumbago with sciatica, left side M54.42 [place] [address] [address] May, Lumbago with sciatica, left side M54.42 ; Lumbago with sciatica, right side M54.41 and Encounter for immunization Z23 [place] [address] [address] Apr, Lumbago with sciatica, left side M54.42 [facility] [address] [id number] Apr, Dental caries K02.9 [place] [address] [address] Apr, [facility] [address] [id number] Apr, Dental examination Z01.20 [place] [address] [address] Feb, Lumbago with sciatica, right side M54.41 [place] [address] [address] Jan, Lumbago with sciatica, right side M54.41 [facility] [address] [address] Dec, Lumbago with sciatica, right side M54.41 [facility] [address] [place] [id number] [place] [address] November, Lumbago with sciatica, right side M54.41 [facility] [address] [address] Oct, Lumbago with sciatica, left side M54.42 [facility] [address] [address] Sep, [facility] [address] [address] Aug, [facility] [address] [address] Jul, [facility] [address] [address] May, [facility] [address] [address] Apr, [facility] [place] [facility] [address] [address] Mar, [facility] [address] [address] Feb, [facility] [place] [facility] [address] [address] Jan, Low back pain M54.5 [facility] [address] [address] Dec, [facility] [place] [facility] [address] [address] November, [facility] [place] [facility] [address] [address] Oct, [facility] [place] [facility] [address] [address] 09 Sep, 2015 [facility] [address] [place] [id number] [place] [address] Aug, Low back pain M54.5 [facility] [address] [place] [id number] [place] [address] Jul, [facility] [address] [place] [id number] [place] [address] Jun, [facility] [address] [place] [id number] [place] [address] Apr, [facility] [address] [place] [id number] [place] [address] Feb, [facility] [address] [place] [id number] [place] [address] Jan, Hypertension 401.9 [facility] [address] [place] [id number] [place] [address] Jan, Hypertension 401.9 [facility] [address] [place] [id number] [place] [address] Dec, Diarrhea 787.91 and Hypertension 401.9 [facility] [address] [place] [id number] [place] [address] November, GERD (gastroesophageal reflux disease) 5 30.81 [facility] [address] [place] [id number] [place] [address] 14 Oct, 2014 [facility] [address] [place] [id number] [place] [address] Oct, [facility] [address] [place] [id number] [place] [address] Sep, [facility] [address] [place] [id number] [place] [address] Sep, [facility] [address] [place] [id number] [place] [address] Aug, [facility] [address] [place] [id number] [place] [address] Aug, [facility] [address] [facility] [place] [address] May, [facility] [place] [facility] [address] [facility] [place] [address] May, [facility] [place] [facility] [address] [facility] [place] [address] November, [facility] [place] [facility] [address] [facility] [place] [address] November, [facility] [place] [facility] [address] [id number] [place] [address] Oct, [facility] [place] [facility] [address] [id number] [place] [address] Oct, [facility] [place] [facility] [address] [id number] [place] [address] Aug, [facility] [place] [facility] [address] [place] [id number] [place] [address] Aug, [facility] [place] [facility] [address] [id number] [place] [address] Jun, [facility] [address] [id number] [place] [address] Jun, [facility] [address] [id number] [place] [address] Apr, [facility] [address] [id number] [place] [address] Apr, [facility] [address] [id number] [place] [address] Apr, [facility] [address] [id number] [place] [address] Jan, [facility] [address] [id number] [place] [address] Jan, [facility] [address] [id number] [place] [address] November, [facility] [address] [id number] [place] [address] Jun, [facility] [address] [id number] [place] [address] Jun, [facility] [address] [id number] [place] [address] May, [facility] [address] [id number] [place] [address] May, [facility] [address] [id number] [place] [address] Apr, [facility] [address] [id number] [place] [address] Apr, IMMUNIZATIONS No Known Immunizations SOCIAL HISTORY [...] Hospitalization History chest pain [address] [facility] ER - right wrist 11/2018
--- OUTSIDE RECORDS SUMMARY | 2019-12-28 23:06 | XMS REPORT | Clinical Summary ---
Author Author [facility] Organization [facility] Address Unknown Phone Unavailable Care Team Providers Care Mental Health Counselor Name Role Phone Self, Referral PCP Unavailable CameliaSha DO Unavailable Source Comments Some departments are not documenting in the electronic medical record. If you d o not see the information that you expected, contact Release of Information in [facility] [employer] Information Management department at [phone] for further assistan ce in locating additional records.[facility] Allergies No Known Allergies Medications End Date Status Medication Sig Dispensed Refills Start Date Active trazodone (DESYREL) 100 At Bedtime 0 09/03/ 200 mg tablet Daily. 8 Active lithium carbonate SR Twice Daily. 0 (ESKALITH CR) 450 mg 8 tablet Active quetiapine (SEROQUEL) 50 Daily With 0 09/03 /200 mg tablet Breakfast. 8 Active quetiapine (SEROQUEL) 100 At Bedtime 0 / 7/200 mg tablet Daily. 8 Active montelukast (SINGULAIR) At Bedtime 0 200 10 mg tablet Daily. 8 Active levothyroxine (SYNTHROID) Daily With 0 08/09 7/200 25 mcg tablet Breakfast. 8 Active quetiapine (SEROQUEL) 25 Take 2 Tabs 30 0 0 09/08/200 mg tablet by mouth 8 Daily. Active divalproex ER (DEPAKOTE Take 1 Tab by 60 0 03/04/200 ER) 500 mg tablet mouth Twice 8 Daily. Active divalproex ER (DEPAKOTE Take 1 Tab by 30 0 03/04/200 ER) 250 mg tablet mouth Daily. 8 Active trazodone (DESYREL) 100 Take 1 Tab by 30 0 03/04/200 mg tablet mouth At 8 Bedtime Daily. Active lithium carbonate SR Take 1 Tab by 60 0 03/ 04/200 (LITHOBID) 450 mg tablet mouth Twice 8 Daily. Active quetiapine (SEROQUEL) 25 Take 2 Tabs 60 0 0 3/04/200 mg tablet by mouth 8 Daily. Active [...] Comments Vital Sign 131/74 09/09/2007 8:00 AM [employer]AIL [employer] SALES REPRESENTATIVE Blood Pressure 108 09/09/2007 8:00 AM [employer]AIL [employer]ESS SALES REPRESENTATIVE Pulse 36.7 C (98.1 F) 09/09/2007 8:00 AM [employer]AIL [employer]ESS SALES REPRESENTATIVE Temperature - - Respiratory Rate - - Oxygen Saturation - - Inhaled Oxygen Concentration 90.7 kg (200 lb) 09/03/2007 2:00 PM [employer] SALES REPRESENTATIVE Weight 168.9 cm (5' 6.5") 09/03/2007 2:00 PM [employer] SALES REPRESENTATIVE Height 31.8 09/03/2007 2:00 PM [employer] SAL[employer] REPRESENTATIVE Body Mass Index Plan of Treatment Health Maintenance Due Date Last Done Comments HIV SCREENING 2007 DTAP/TDAP VACCINES ( - 2010 Tdap) HEPATITIS C SCREENING 2010 PHYSICAL (COMPREHENSIVE) 2010 EXAM INFLUENZA VACCINE 04/07/2020 HPV VACCINES Aged Out No longer eligible based on patient's age to complete this topic Results Not on filefrom Last 3 Months
--- OUTSIDE RECORDS SUMMARY | 2019-12-28 23:06 | XMS REPORT ---
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 838624089 Problem Lumbago with sciatica, right side M54.41 Active 936845666 Problem Anxiety F41.9 Active 77069209 ALLERGIES No Information ENCOUNTERS Encounter Location Date Diagnosis [place] [address] [address] Feb, Lumbago with sciatica, right side M54.41 [place] [address] [address] Jan, Lumbago with sciatica, left side M54.42 [place] [address] [address] Jan, Lumbago with sciatica, left side M54.42 [place] [address] [address] Jan, Lumbago with sciatica, right side M54.41 [place] [address] [address] Dec, Lumbago with sciatica, right side M54.41 and Lumbago with sciatica, left side M54.42 [place] [address] [address] [place] [id number] [address] [place] [address] November, Mood disorder F39 [place] [address] [address] [facility] [id number] [address] [place] [address] Sep, Mood disorder F39 [facility] [address] [facility] [id number] [address] [place] [address] Aug, Mood disorder F39 [facility] [address] [facility] [id number] [address] [place] [address] Jun, Mood disorder F39 [facility] [address] [facility] [id number] [address] [place] [address] May, Anxiety F41.9 and Hypertensi on, benign I10 [facility] [address] [facility] [id number] [address] [place] [address] May, Dysuria R30.0 and Acute urin anton tract infection N39.0 [facility] [address] [facility] [id number] [address] [place] [address] May, Lumbago with sciatica, left side M54.42 [facility] [address] [place] [id number] [address] [place] [address] Mar, Lumbago with sciatica, left side M54.42 [facility] [address] [place] [id number] [address] [place] [address] Feb, Lumbago with sciatica, left side M54.42 [facility] [address] [place] [id number] [address] [place] [address] Feb, [facility] [address] [place] [id number] [address] [place] [id number] Feb, Encounter for dental examina tion Z01.20 [facility] [address] [facility] [id number] [address] [place] [address] Dec, Lumbago with sciatica, left side M54.42 [facility] [address] [facility] [id number] [address] [place] [address] May, Lumbago with sciatica, left side M54.42 ; Lumbago with sciatica, right side M54.41 and Encounter for immunization Z23 [facility] [address] [id number] [address] [place] [id number] Apr, Lumbago with sciatica, left side M54.42 [facility] [address] [id number] [address] [place] [id number] Apr, Dental caries K02.9 [facility] [address] [id number] [address] [place] [address] Apr, [facility] [address] [id number] [address] [place] [id number] Apr, Dental examination Z01.20 [facility] [address] [id number] [address] [place] [id number] Feb, Lumbago with sciatica, right side M54.41 [facility] [address] [id number] [address] [place] [id number] Jan, Lumbago with sciatica, right side M54.41 [facility] [address] [id number] [address] [place] [id number] Dec, Lumbago with sciatica, right side M54.41 [facility] [address] [id number] [address] [place] [address] November, Lumbago with sciatica, right side M54.41 [facility] [address] [id number] [address] [place] [address] Oct, Lumbago with sciatica, left side M54.42 [facility] [address] [id number] [address] [place] [id number] Sep, [facility] [address] [id number] [address] [place] [id number] Aug, [facility] [address] [facility] [id number] [address] [place] [id number] Jul, [facility] [address] [id number] [address] [place] [address], [place] [address] May, [facility] [address] [id number] [address] [place] [address], [place] [address] Apr, [facility] [address] [id number] [address] [place] [address], [place] [address] Mar, [facility] [address] [id number] [address] [place] [address], [place] [address] Feb, [facility] [address] [id number] [address] [place] [address], [place] [address] Jan, Low back pain M54.5 [facility] [address] [id number] [address] [place] [address], [place] [address] Dec, [facility] [address] [id number] [address] [place] [address], [place] [address] November, [facility] [address] [id number] [address] [place] [address], [place] [address] Oct, [facility] [address] [id number] [address] [place] [address], [place] [address] Sep, [facility] [address] [id number] [address] [place] [address], [place] [address] Aug, Low back pain M54.5 [facility] [address] [id number] [address] [place] [address], [place] [address] Jul, [facility] [address] [id number] [address] [place] [address], [place] [address] Jun, [facility] [address] [id number] [address] [place] [address], [place] [address] Apr, [facility] [address] [id number] [address] [place] [address], [place] [address] Feb, [facility] [address] [id number] [address] [place] [address], [place] [address] Jan, Hypertension 401.9 [facility] [address] [id number] [address] [place] [id number] 17 Jan, 2015 Hypertension 401.9 [facility] [address] [id number] [address] [place] [id number] 17 Dec, 2014 Diarrhea 787.91 and Hyperten caryn 401.9 [facility] [address] [id number] [address] [place] [address] November, GERD (gastroesophageal reflu x disease) 530.81 [facility] [address] [id number] [address] [place] [id number] 14 Oct, 2014 [facility] [address] [id number] [address] [place] [id number] Oct, [facility] [address] [id number] [address] [place] [phone] Sep, [facility] [address] [id number] [address] [place] [address] Sep, [facility] [address] [id number] [address] [place] [id number] Aug, [facility] [address] [id number] [address] [place] [phone] Aug, [facility] [address] [facility] [id number] [address] [place] [phone] May, [facility] [address] [id number] [address] [place] [address] May, [facility] [address] [id number] [address] [place] [id number] November, [facility] [address] [id number] [address] [place] [address] November, [facility] [address] [id number] [address] [place] [address] Oct, [facility] [address] [id number] [address] [place] [address] Oct, [facility] [address] [id number] [address] [place] [address], [place] [address] Aug, [facility] [address] [id number] [address] [place] [address], [place] [address] Aug, [facility] [address] [id number] [address] [place] [address], [place] [address] Jun, [facility] [address] [id number] [address] [place] [address], [place] [address] Jun, [facility] [address] [id number] [address] [place] [address], [place] [address] Apr, [facility] [address] [id number] [address] [place] [address], [place] [address] Apr, [facility] [address] [id number] [address] [place] [address], [place] [address] Apr, [facility] [address] [id number] [address] [place] [address], [place] [address] Jan, [facility] [address] [id number] [address] [place] [address], [place] [address] Jan, [facility] [address] [id number] [address] [place] [id number] November, [facility] [address] [id number] [address] [place] [address], [place] [address] Jun, [facility] [address] [id number] [address] [place] [id number] 14 Jun, 2010 [facility] [address] [id number] [address] [place] [address], [place] [address] 16 May, 2010 [facility] [address] [id number] [address] [place] [address], [place] [address] May, [facility] [address] [id number] [address] [place] [address], [place] [address] 19 Apr, 2010 [facility] [address] [id number] [address] [place] [address], [place] [address] 14 Apr, 2010 IMMUNIZATIONS No Known Immunizations [...] pain 2014 Hospitalization History [facility] - right wrist 11/2018
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
[2019-12-28] MEDS ORDERED: OXYMETAZOLINE (AFRIN) 0.05% NA 30 ML BTL ONE (23:30)
[2019-12-28 23:36] VITALS: BP 135/80
--- NOTE | 2019-12-29 07:08 | Diagnostic Imaging Report ---
Clinical indications: Patient has nose pain. Patient fell and hit his nose on the curb. EXAM: Axial CT scan of maxillofacial structures performed without IV contrast. Coronal and sagittal reformatted images are created. Auto Exposure Controls were utilized during the CT exam to meet ALARA standards for radiation dose reduction. Comparisons: CT scan of maxillofacial structures dated 02/15/2019. FINDINGS: There is interval development of a displaced fracture of the anterior nasal spine of the maxilla. There is comminuted fracture of the anterior aspect of the nasal bone. There is a fracture involving the right nasal bone near the nasal maxillary suture. There is also medial displacement of the right nasal bone concern for fracture of the right nasal maxillary suture region. There is also interval malalignment involving the inferior aspect of left nasal maxillary suture with fracture changes seen. There is a nondisplaced fracture involving the left nasal bone. Nasal bone is slightly deviated toward the left. There is no other skull or maxillofacial fracture seen. There is mild mucosal thickening involving left maxillary sinus and ethmoid sinus. Mastoid air cells are clear. There is large amounts of mucosal thickening involving the nasal cavity anteriorly. Palma bullosa of the right middle nasal turbinate is seen. The orbits and globes are intact. There is no retrobulbar hematoma. Prominent lymph nodes in the submandibular region and both sides of the neck are noted which is nonspecific. There is a 12 mm low-density area which is circumscribed and extends to the skin in the left lateral upper neck region. A sebaceous cyst may be considered. IMPRESSION: 1: There is multiple fractures and comminution involving the anterior aspect of the nasal bone and right and left nasal bone regions. There is also fracture of the right nasal maxillary suture and left nasal maxillary suture regions. There is slight leftward deviation of the nose. There is associated soft tissue swelling and thickening involving the anterior aspect of nasal cavity and adjacent to the nose. 2: There is no other skull or maxillofacial fracture. 3: Nonspecific prominent bilateral neck lymph nodes. 4: Possible sebaceous cysts involving the left lateral upper aspect of the neck. I agree with stat rad report Dictated by: Dictated on workstation # [id number]
--- NOTE | 2019-12-29 07:53 | Diagnostic Imaging Report ---
Clinical indications: Patient has nose pain. Patient fell and hit his nose on the curb. Exam: X-ray of the skull, multiple views, and lateral nasal bone views. Comparison: None. Findings and impression: 1.: There is comminuted fracture involving the anterior aspect of the nasal bone and concern for fractures of the right and left nasal bone regions. There is soft tissue swelling adjacent to the nose. There is also calcifications near the anterior nasal spine of the maxilla which may represent fracture. Maxillofacial CT scan would better evaluate. 2: There is no significant paranasal sinus disease or fluid. Dictated by: Dictated on workstation # [id number]
[2019-12-29] MEDS ORDERED: OXYMETAZOLINE (AFRIN) 0.05% NA 30 ML BTL SCH (09:00)
== END 2019-12-28 23:33 | disposition home or self-care (01) ==
LOC: EDUNIT# 22:25 → ER 22:27
DX: S02.2XXA Fracture of nasal bones, initial encounter for closed fracture (principal); G89.29 Other chronic pain; M54.9 Dorsalgia, unspecified; Z87.891 Personal history of nicotine dependence; Z79.891 Long term (current) use of opiate analgesic; Z77.22 Contact with and (suspected) exposure to environmental tobacco smoke (acute) (chronic); W01.10XA Fall on same level from slipping, tripping and stumbling with subsequent striking against unspecified object, initial encounter
CPT/HCPCS: 70160; 70486

== ENCOUNTER 2020-01-03 16:51 | Emergency (ER) | payer MEDICAID ==
[~2020-01-03] VITALS: Ht 180 cm; Wt 112.7 kg
[~2020-01-03 16:51] MED LIST changes: +AMOX500C2 PO
--- OUTSIDE RECORDS SUMMARY | 2020-01-03 16:55 | XMS REPORT | Clinical Summary ---
Author Author [facility] Organization [facility] Address Unknown Phone Unavailable Care Team Providers Care [employer] Name Role Phone Self, Referral PCP Unavailable CameliaSha DO Unavailable Source Comments Some departments are not documenting in the electronic medical record. If you d o not see the information that you expected, contact Release of Information in [facility] [employer] Information Management department at [phone] for further assistan ce in locating additional records.[facility] Allergies No Known Allergies Medications End Date [...] Comments Vital Sign 131/74 09/09/2007 8:00 AM [employer] Blood Pressure 108 09/09/2007 8:00 AM [employer] Pulse 36.7 C (98.1 F) 09/09/2007 8:00 AM [employer] Temperature - - Respiratory Rate - - Oxygen Saturation - - Inhaled Oxygen Concentration 90.7 kg (200 lb) 09/03/2007 2:00 PM [employer] Weight 168.9 cm (5' 6.5") 09/03/2007 2:00 PM [employer] Height 31.8 09/03/2007 2:00 PM [employer] Body Mass Index Plan of Treatment Health Maintenance Due Date Last Done Comments HIV SCREENING 2007 DTAP/TDAP VACCINES ( - 2010 Tdap) HEPATITIS C SCREENING 2010 PHYSICAL (COMPREHENSIVE) 2010 EXAM INFLUENZA VACCINE 04/07/2020 HPV VACCINES Aged Out No longer eligible based on patient's age to complete this topic Results Not on filefrom Last 3 Months
--- OUTSIDE RECORDS SUMMARY | 2020-01-03 16:56 | XMS REPORT ---
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 01-13-2019 - 01-13-2019 11-05-2018 Telephone encounter Unspecified mood YUNIEL SEGURA ( no [facility] - [affective] disorder phone) (no phone ) 11-05-2018 - 11-05-2018 09-24-2018 Telephone encounter Unspecified mood YUNIEL SEGURA ( no [facility] - [affective] disorder phone) (no phone ) 09-24-2018 - 09-24-2018 08-13-2018 Telephone encounter Unspecified mood YUNIEL SEGURA ( no [facility] - [affective] disorder phone) (no phone ) 08-13-2018 - 08-13-2018 05-15-2018 Telephone encounter Lumbago with sciatica, YUNIEL SEGURA (no [employer] [facility] - left side phone) (no phone) 05-15-2018 - 05-15-2018 04-03-2018 Telephone encounter Lumbago with sciatica, YUNIEL SEGURA (no [employer] [facility] - left side phone) (no phone) 04-03-2018 - 04-03-2018 Medical Equipment No Information Payers The data below is from unstructured sources Payer Name Policy Number Subscriber Name Relationship [facility] [id number] Darlin Maharaj 01 Self / Same As [...] History [facility] ([id number]) Summary Purpose eClinicalWorks SubmissioneClinicalWorks SubmissioneClinicalWorks SubmissioneClinicalWorks SubmissioneClinicalWorks SubmissioneClinicalWorks SubmissioneClinicalWorks SubmissioneClinicalWorks SubmissioneClinicalWorks Submission Advance Directives Directive Response Recor ded Date/Time Advance Directives No 10:08pm Health Care Power of Pick Pulling Machine Tender No 02/26/16 10:08pm Organ Donor No 02/26/16 10:08pm Resuscitation Status Full Code 02/26/16 10:08pm Directive Response Recor ded Date/Time Advance Directives No 7:38pm Health Care Power of Pick Pulling Machine Tender No 06/12/16 7:38pm Organ Donor No 06/12/16 7:38pm Resuscitation Status Full Code 06/12/16 7:38pm Directive Response Recor ded Date/Time Advance Directives No 8:22pm Health Care Power of Pick Pulling Machine Tender No 10/16/16 8:22pm Organ Donor No 10/16/16 8:22pm Resuscitation Status Full Code 10/16/16 8:22pm Directive Response Recor ded Date/Time Advance Directives No 10:09pm Health Care Power of Pick Pulling Machine Tender No 11/13/15 10:09pm Organ Donor No 11/13/15 10:09pm Resuscitation Status Full Code 11/13/15 10:09pm Directive Response Recor ded Date/Time Advance Directives No 11:54am Health Care Power of Pick Pulling Machine Tender No 05/08/14 11:54am Organ Donor No 05/08/14 11:54am Resuscitation Status Full Code 05/08/14 11:54am Directive Response Recor ded Date Advance Directives N 4:04pm Health Care Power of Pick Pulling Machine Tender N 11/03/12 4:04pm Organ Donor N 11/03/12 4 :04pm Directive Response Recor ded Date/Time Advance Directives No 9:46pm Health Care Power of Pick Pulling Machine Tender No 11/14/14 9:46pm Organ Donor No 11/14/14 9:46pm Resuscitation Status Full Code 11/14/14 9:46pm Directive Response Recor ded Date/Time Advance Directives No 4:32pm Health Care Power of Pick Pulling Machine Tender No 04/08/17 4:32pm Organ Donor No 04/08/17 4:32pm Resuscitation Status Full Code 04/08/17 4:32pm Directive Response Recor ded Date/Time Advance Directives No 8:47pm Health Care Power of Pick Pulling Machine Tender No 04/08/17 4:32pm Organ Donor No 04/08/17 4:32pm Resuscitation Status Full Code 08/29/18 8:47pm Directive Response Recor ded Date/Time Advance Directives No 11:12am Health Care Power of Pick Pulling Machine Tender No 12/08/18 11:12am Organ Donor No 12/08/18 [...] Chief Complaint Upper Extremity Reason for Visit [id number] Additional Source Comments This clinical document has been generated using [employer] software that has been certified by the Office of the National Coordinator for Health Information Technology (ONC 15.99.04.3023.Diam.31.00.0.349490) and the National Committee for Reducing Machine Operator (NCQA, as an eMeasure certified technology). FOR [...] BASED ON T HE PRIMARY CLINICAL RECORDS. [employer]. provides no warranty or guara ntee of [...] notes dizzyness, headahes and chest pain. -Silver HOLOCMB, PT reports he has been dealing with a lot of anger issues a nd depression build up. Pt notes he would like to set up to see behavioral. -And robinson MASTERS-Rosa
--- OUTSIDE RECORDS SUMMARY | 2020-01-03 16:57 | XMS REPORT ---
Author Author Varun SEGURA Organization [facility] Address [address] [place] [address] Care Team Providers Care Temperer Name Role Phone YUNIEL SEGURA Unavailable PROBLEMS Type Condition ICD9-CM Code [id number] Code Onset Dates Condition S tatus SNOMED Code Problem Mood disorder F39 Active 733877 05 Problem Other chronic pain G89.29 Active 8 9082995 Problem Lumbago with sciatica, left side M54.42 Active 362944137 Problem Lumbago with sciatica, right side M54.41 Active 239773319 Problem Anxiety F41.9 Active 20870629 Problem Hypertension, benign I10 Active 62543236 ALLERGIES No Information ENCOUNTERS Encounter Location Date Diagnosis [place] [address] [place] [id number] [place] [phone] November, Lumbago with sciatica, right side M54.41 [place] [address] [address] Oct, Lumbago with sciatica, right side M54.41 [place] [address] [place] [id number] [place] [address] Aug, Lumbago with sciatica, left side M54.42 [place] [address] [place] [id number] [place] [address] Aug, Lumbago with sciatica, right side M54.41 [place] [address] [place] [id number] [place] [id number] Jun, Lumbago with sciatica, right side M54.41 [place] [address] [place] [id number] [place] [address] May, Lumbago with sciatica, right side M54.41 [facility] [address] [id number] [address] [place] [id number] Apr, [facility] [address] [id number] [address] [place] [phone] Apr, Hypertension, benign I10 ; L ow back pain M54.5 and Other chronic pain G89.29 [facility] [address] [id number] [address] [place] [id number] Apr, Lumbago with sciatica, right side M54.41 [facility] [address] [id number] [address] [place] [id number] Feb, Lumbago with sciatica, right side M54.41 [facility] [address] [id number] [address] [place] [id number] Jan, Lumbago with sciatica, left side M54.42 [facility] [address] [facility] [id number] [address] [place] [phone] Jan, Lumbago with sciatica, left side M54.42 [facility] [address] [id number] [address] [place] [id number] Jan, Lumbago with sciatica, right side M54.41 [facility] [address] [id number] [address] [place] [phone] Dec, Lumbago with sciatica, right side M54.41 and Lumbago with sciatica, left side M54.42 [facility] [address] [id number] [address] [place] [phone] November, Mood disorder F39 [facility] [address] [facility] [id number] [address] [place] [address] Sep, Mood disorder F39 [facility] [address] [id number] [address] [place] [phone] Aug, Mood disorder F39 [facility] [address] [id number] [address] [place] [phone] Jun, Mood disorder F39 [facility] [address] [facility] [id number] [address] [place] [phone] May, Anxiety F41.9 and Hypertensi on, benign I10 [facility] [address] [facility] [id number] [address] [place] [phone] May, Dysuria R30.0 and Acute urin anton tract infection N39.0 [facility] [address] [facility] [id number] [address] [place] [id number] May, Lumbago with sciatica, left side M54.42 [place] [address] [facility] [id number] [address] [place] [address] Mar, Lumbago with sciatica, left side M54.42 [place] [address] [place] [id number] [address] [place] [id number] Feb, Lumbago with sciatica, left side M54.42 [facility] [address] [place] [id number] [address] [place] [id number] Feb, [facility] [address] [id number] Feb, Encounter for dental examina tion Z01.20 [facility] [address] [id number] [address] [place] [address] Dec, Lumbago with sciatica, left side M54.42 [facility] [address] [id number] [address] [place] [address] May, Lumbago with sciatica, left side M54.42 ; Lumbago with sciatica, right side M54.41 and Encounter for immunization Z23 [facility] [address] [id number] [address] [place] [address] Apr, Lumbago with sciatica, left side M54.42 [facility] [address] [id number] [address] [place] [id number] Apr, Dental caries K02.9 [facility] [address] [id number] [address] [place] [address] Apr, [facility] [address] [id number] [address] [place] [address] [id number] Apr, Dental examination Z01.20 [facility] [address] [id number] [address] [place] [id number] Feb, Lumbago with sciatica, right side M54.41 [facility] [address] [id number] [address] [place] [id number] Jan, Lumbago with sciatica, right side M54.41 [facility] [address] [id number] [address] [place] [id number] Dec, Lumbago with sciatica, right side M54.41 [facility] [address] [id number] [address] [place] [address] November, Lumbago with sciatica, right side M54.41 [facility] [address] [id number] [address] [place] [id number] Oct, Lumbago with sciatica, left side M54.42 [facility] [address] [id number] [address] [place] [id number] Sep, [facility] [address] [id number] [address] [place] [phone] Aug, [facility] [address] [id number] [address] [place] [phone] Jul, [facility] [address] [id number] [address] [place] [phone] May, [facility] [address] [id number] [address] [place] [phone] Apr, [facility] [address] [id number] [address] [place] [id number] Mar, [facility] [place] [address] [id number] [address] [place] [address], [place] [address] Feb, [facility] [place] [address] [id number] [address] [place] [phone] Jan, Low back pain M54.5 [facility] [place] [address] [id number] [address] [place] [address], [place] [address] Dec, [facility] [address] [id number] [address] [place] [phone] November, [facility] [address] [id number] [address] [place] [address], [place] [address] Oct, [facility] [address] [id number] [address] [place] [phone] Sep, [facility] [place] [address] [id number] [address] [place] [id number] Aug, Low back pain M54.5 [facility] [place] [address] [id number] [address] [place] [id number] Jul, [facility] [place] [address] [id number] [address] [place] [phone] Jun, [facility] [place] [address] [id number] [address] [place] [phone] Apr, [facility] [place] [address] [id number] [address] [place] [phone] Feb, [facility] [place] [address] [id number] [address] [place] [phone] Jan, Hypertension 401.9 [facility] [place] [address] [id number] [address] [place] [address] Jan, Hypertension 401.9 [facility] [address] [id number] [address] [place] [id number] Dec, Diarrhea 787.91 and Hyperten caryn 401.9 [facility] [address] [id number] [address] [place] [id number] November, GERD (gastroesophageal reflu x disease) 530.81 [facility] [address] [id number] [address] [place] [address], [place] [address] Oct, [facility] [place] [address] [id number] [address] [place] [address], [place] [address] Oct, [facility] [place] [address] [id number] [address] [place] [address], [place] [address] Sep, [facility] [place] [address] [id number] [address] [place] [address], [place] [address] Sep, [facility] [place] [address] [id number] [address] [place] [address], [place] [address] Aug, [facility] [place] [address] [id number] [address] [place] [phone] Aug, [facility] [place] [address] [id number] [address] [place] [phone] May, [facility] [place] [address] [id number] [address] [place] [address], [place] [address] May, [facility] [place] [address] [id number] [address] [place] [phone] November, [facility] [place] [address] [id number] [address] [place] [phone] November, [facility] [place] [address] [id number] [address] [place] [phone] Oct, [facility] [place] [address] [id number] [address] [place] [phone] Oct, [facility] [place] [address] [id number] [address] [place] [phone] Aug, [facility] [place] [address] [id number] [address] [place] [address] Aug, [facility] [place] [address] [id number] [address] [place] [phone] 04 Jun, 2013 [facility] [address] [id number] [address] [place] [phone] Jun, [facility] [address] [id number] [address] [place] [id number] Apr, [facility] [address] [id number] [address] [place] [phone] Apr, [facility] [address] [id number] [address] [place] [phone] Apr, [facility] [address] [id number] [address] [place] [address] Jan, [facility] [address] [id number] [address] [place] [id number] Jan, [facility] [address] [id number] [address] [place] [phone] November, [facility] [address] [id number] [address] [place] [phone] Jun, [facility] [address] [id number] [address] [place] [id number] Jun, [facility] [address] [id number] [address] [place] [phone] May, [facility] [address] [id number] [address] [place] [id number] May, [facility] [address] [id number] [address] [place] [id number] Apr, [facility] [address] [id number] [address] [place] [id number] 14 Apr, 2010 IMMUNIZATIONS No Known Immunizations SOCIAL HISTORY Never Assessed REASON FOR VISIT PLAN OF CARE VITAL SIGNS Height 68 in 2013-06-10 Weight 230.5 lbs 2013-06-10 Temperature 96.1 degrees Fahrenheit 2013-06-10 Heart Rate 80 bpm 2013-06-10 Respiratory Rate 18 2013-06-10 Blood pressure systolic 130 mmHg 2013-06-10 Blood pressure diastolic 84 mmHg 2013-06-10 MEDICATIONS Unknown Medications RESULTS No Results PROCEDURES [...]
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
--- NOTE | 2020-01-03 18:15 | ED EENT ---
History of Present Illness General Chief Complaint: Nasal Problems Stated Complaint: NOSE BLEED Nursing Triage Note: Pt states that he fell one week ago and broke his nose and has surgery with Dr Colvin on 01/04/2020. He started that it started bleeding today and would not stop. Upon assessment, his nose had no active bleeding. Source: patient (somewhat limited historian) History of Present Illness Date Seen by Provider: Jan 03, 2020 Time Seen by Provider: 17:55 Initial Comments PT ARRIVES VIA POV FROM HOME STATES HE BROKE HIS NOSE ON FATHER'S DAY, 1 WEEK AGO. SEEN HERE IN ER 12/28/19. GIVEN RX FOR AMOXIL PT HAS SEEN DR. COLVIN AND IS SCHEDULED TO HAVE SURGERY ON HIS NOSE AT 0715 TOMORROW MORNING STATES HE WOKE UP THIS MORNING WITH A NOSEBLEED AND IT HAS CONTINUED TO BLEED ALL DAY HE DENIES INJURING HIS NOSE AGAIN DENIES ANY INCREASED PAIN NO FEVER Allergies and Home Medications Allergies Coded Allergies: NKANo Known Allergies (Verified Allergy, Unknown, 11/04/05) Home Medications Amoxicillin 500 Mg Capsule, 500 MG PO TID Prescribed by: TERESO MUSE on 12/28/19 2258 Naproxen 500 Mg Tablet, 500 MG PO BID PRN for PAIN-MODERATE (5-7) Prescribed by: TERESO MUSE on 12/28/19 2258 Tramadol HCl 50 Mg Tablet, 1 TAB PO UD, (Reported) Patient Home Medication List Home Medication List Reviewed: Yes Review of Systems Review of Systems Constitutional: no symptoms reported Nose: see HPI, epistaxis, previous injury Throat: other (BLOOD COMING OUT OF HIS MOUTH/DOWN HIS THROAT) Past Frxxvje-Eagrec-Glhvfn Hx Past Med/Social Hx: Reviewed and Corrections made Patient Social History Alcohol Use: Occasionally Uses Number of Drinks Today: GG Alcohol Beverage of Choice: Beer, Whiskey Recreational Drug Use: No Type Used: Smokeless Tobacco 2nd Hand Smoke Exposure: Yes Recent Foreign Travel: No Contact w/Someone Who Travel: No Recent Infectious Disease Expo: No Recent Hopitalizations: No Physical Abuse: No Sexual Abuse: No Mistreated: No Fear: No Immunizations Up To Date Tetanus Booster (TDap): Less than 5yrs Seasonal Allergies Seasonal Allergies: No Past Medical History Surgeries: Yes (HERNIA REPAIR) Abdominal Respiratory: No Cardiac: Yes Hypertension Neurological: No Reproductive Disorders: No Genitourinary: No Gastrointestinal: No Musculoskeletal: Yes Arthritis, Chronic Back Pain Endocrine: No HEENT: No Cancer: No Psychosocial: Yes Anxiety, Bipolar, Depression Integumentary: No Blood Disorders: No Family Medical History Patient reports no known family medical history. No Pertinent Family Hx Physical Exam Vital Signs Vital Signs - First Documented 01/03/20 01/03/20 17:14 19:39 Temp 36.7 Pulse 84 Resp 18 B/P (MAP) 158/94 (115) Pulse Ox 96 O2 Delivery Room Air Height, Weight, BMI Height: 5'9.00" Weight: 240lbs. oz. 108.866135nv; 34.00 BMI Method:Stated General Appearance: WD/WN, no apparent distress, other (SPEECH IMPEDIMENT) Nose: other (MILD SWELLING AND BRUISING TO NOSE, SCABBED WOUNDS TO FOREHEAD AND BRIDGE OF NOSE. PT HAS CONSTANT OOZING OF BLOOD FROM NARES--APPEARS TO BE MOSTLY FROM RIGHT NARE. FRESH BLOOD AND CLOTS. ) Mouth/Throat: other (MOUTH AND POSTERIOR PHARYNX WITH FRESH BLOOD AND CLOTS. ) Neck: normal inspection Cardiovascular: regular rate, rhythm Respiratory: normal breath sounds Neurologic/Psychiatric: no motor/sensory deficits, alert, normal mood/affect, oriented x 3 Skin: normal color, warm/dry Procedures/Interventions Suture Size: 4-0 Progress/Results/Core Measures Results/Orders Lab Results My Orders Vital Signs/I&O Blood Pressure Mean: 115 Progress Progress Note : Progress Note AFRIN SPRAYED IN NARES, BLEEDING HAS STOPPED AT THE TIME OF DISMISSAL, AND NO BLOOD IN POSTERIOR PHARYNX, AFTER GARGLING WITH WATER. Departure Communication (Admissions) 8921--SPOKE WITH DR. COLVIN, ADVISES TO USE AFRIN AND MAY PACK NOSE IF BLEEDING CONTINUES. WILL ALSO OBTAIN CBC. HE WILL PROCEED WITH SURGERY TOMORROW SCHEDULED. WILL CALL HIM BACK IF BLEEDING CANNOT BE CONTROLLED. Impression Primary Impression: EPISTAXIS DUE TO RECENT NASAL FRACTURE Disposition: 01 HOME, SELF-CARE Condition: Improved Departure-Patient Inst. Referrals: [facility] [place] Primary Care Physician YUNIEL SEGURA (Family) Primary Care Physician TED COLVIN MD Patient Instructions: Nose Fracture (DC), Nosebleeds (DC) Add. Discharge Instructions: DO NOT BLOW OR RUB YOUR NOSE CONTINUE YOUR ANTIBIOTIC PRESCRIBED--AMOXIL YOU MAY USE AFRIN 2 SPRAYS IN AFFECTED NOSTRIL EVERY 4 HOURS NEEDED FOR SEVERE BLEEDING KEEP YOUR APPOINTMENT WITH DR. COLVIN IN THE MORNING FOR SURGERY All discharge instructions reviewed with patient and/or family. Voiced understanding. DES SEXTON DO Jan 03, 2020 18:14
[2020-01-03 18:29] LABS: BASOPHILS % (AUTO) 1 % (0-10); EOSINOPHILS # (AUTO) 0.2 10^3/uL (0.0-0.3); EOSINOPHILS % (AUTO) 2 % (0-10); HEMATOCRIT 40 % (40-54); HEMOGLOBIN 14.2 G/DL (13.3-17.7); LYMPHOCYTES # (AUTO) 2.3 X 10^3 (1.0-4.0); LYMPHOCYTES % (AUTO) 29 % (12-44); MEAN CORPUSCULAR HEMOGLOBIN 28 PG (25-34); MEAN CORPUSCULAR HGB CONC 36 G/DL (32-36); MEAN CORPUSCULAR VOLUME 79 FL (80-99); MEAN PLATELET VOLUME 10.5 FL (7.4-10.4); MONOCYTES # (AUTO) 0.6 X 10^3 (0.0-1.0); MONOCYTES % (AUTO) 7 % (0-12); NEUTROPHILS # (AUTO) 4.9 X 10^3 (1.8-7.8); NEUTROPHILS % (AUTO) 61 % (42-75); PLATELET COUNT 185 10^3/uL (130-400)
[2020-01-03 18:47] LABS: PROTHROMBIN TIME PATIENT 13.1 SEC (12.2-14.7)
[2020-01-03 19:39] VITALS: BP 123/88
[2020-01-03] MEDS ORDERED: OXYMETAZOLINE (AFRIN) 0.05% NA 30 ML BTL SCH (21:00)
== END 2020-01-03 19:39 | disposition home or self-care (01) ==
LOC: EDUNIT# 16:51 → ER 16:53
DX: R04.0 Epistaxis (principal); S02.2XXD Fracture of nasal bones, subsequent encounter for fracture with routine healing; F17.290 Nicotine dependence, other tobacco product, uncomplicated; I10 Essential (primary) hypertension; M54.9 Dorsalgia, unspecified; F41.9 Anxiety disorder, unspecified; F31.9 Bipolar disorder, unspecified
CPT/HCPCS: 36415; 85025; 85610; 85730

== ENCOUNTER 2020-10-17 18:18 | Emergency (ER) | payer MEDICAID ==
[~2020-10-17] VITALS: Ht 175.2 cm; Wt 104.3 kg
[~2020-10-17 18:18] MED LIST changes: +LORazepam INJ 2 MG/ML (ATIVAN) VIAL ONE
--- NOTE | 2020-10-17 18:26 | ED Chest Pain ---
General Chief Complaint: Chest Pain Source: patient Exam Limitations: no limitations History of Present Illness Date Seen by Provider: Oct 17, 2020 Time Seen by Provider: 18:24 Initial Comments To ER with reports of chest pain described as "outrageous" and bilateral arm numbness that began about 1 hour ago while driving home from work. Chews tobacco but does not smoke. No history of chest pain or cardiac issues. He states that he has been drinking whiskey each of the past 3 days but has not had any today. Typically he only drinks on the weekends. Timing/Duration: 1 hour Severity/Quality: moderate Location: central Radiation: no radiation Activities at Onset: none Prior CP/Workup: no prior chest pain ASA po DIPPER OPERATOR: No NTG SL DIPPER OPERATOR: No Associated Symptoms: shortness of breath Allergies and Home Medications Allergies Coded Allergies: NKANo Known Allergies (Verified Allergy, Unknown, 11/04/05) Home Medications Amoxicillin 500 Mg Capsule, 500 MG PO TID Prescribed by: TERESO MUSE on 12/28/192257 Naproxen 500 Mg Tablet, 500 MG PO BID PRN for PAIN-MODERATE (5-7) Prescribed by: TERESO MUSE on 12/28/192257 Tramadol HCl 50 Mg Tablet, 1 TAB PO UD, (Reported) Patient Home Medication List Home Medication List Reviewed: Yes Review of Systems Review of Systems Constitutional: see HPI EENTM: No Symptoms Reported Respiratory: See HPI, Shortness of Air Cardiovascular: See HPI, Chest Pain Gastrointestinal: No Symptoms Reported Genitourinary: No Symptoms Reported Musculoskeletal: no symptoms reported Skin: no symptoms reported Psychiatric/Neurological: No Symptoms Reported Endocrine: No Symptoms Reported Hematologic/Lymphatic: No Symptoms Reported Past Mltavlx-Pjxtud-Ftwlqx Hx Patient Social History Alcohol Beverage of Choice: Beer, Whiskey Type Used: Smokeless Tobacco 2nd Hand Smoke Exposure: Yes Recent Hopitalizations: No Immunizations Up To Date Tetanus Booster (TDap): Less than 5yrs Seasonal Allergies Seasonal Allergies: No Past Medical History Surgeries: Yes (HERNIA REPAIR) Abdominal Respiratory: No Cardiac: Yes Hypertension Neurological: No Reproductive Disorders: No Genitourinary: No Gastrointestinal: No Musculoskeletal: Yes Arthritis, Chronic Back Pain Endocrine: No HEENT: No Cancer: No Psychosocial: Yes Anxiety, Bipolar, Depression Integumentary: No Blood Disorders: No Family Medical History Patient reports no known family medical history. No Pertinent Family Hx Physical Exam Vital Signs Vital Signs - First Documented 10/17/20 18:18 Pulse 125 Resp 11 B/P (MAP) 176/108 (130) Pulse Ox 100 O2 Delivery Room Air Capillary Refill : Height, Weight, BMI Height: 5'9.00" Weight: 240lbs. oz. 108.188161ud; 34.00 BMI Method:Stated General Appearance: No Apparent Distress, WD/WN, Other (Alert and oriented, very anxious appearing, heart rate 120 sinus. Oxygen 100% room air respiratory rate 20. Blood pressure 176/100.) HEENT: PERRL/EOMI, TMs Normal Respiratory: Normal Breath Sounds, No Accessory Muscle Use Cardiovascular: Normal Peripheral Pulses, Tachycardia Gastrointestinal: Normal Bowel Sounds, Non Tender, Soft Extremity: Normal Capillary Refill, Normal Inspection Neurologic/Psychiatric: Alert, Oriented x3 Skin: Normal Color, Warm/Dry Procedures/Interventions Suture Size: 4-0 Progress/Results/Core Measures Results/Orders Lab Results Laboratory Tests Test 10/17/20 18:28 10/17/20 19:26 Range/Units White Blood Count 8.8 4.3-11.0 10^3/uL Red Blood Count 5.37 4.30-5.52 10^6/uL Hemoglobin 15.0 13.3-17.7 g/dL Hematocrit 44 40-54 % Mean Corpuscular Volume 82 80-99 fL Mean Corpuscular Hemoglobin 28 25-34 pg Mean Corpuscular Hemoglobin Concent 34 32-36 g/dL Red Cell Distribution Width 12.8 10.0-14.5 % Platelet Count 206 130-400 10^3/uL Mean Platelet Volume 10.7 9.0-12.2 fL Immature Granulocyte % (Auto) 0 % Neutrophils (%) (Auto) 58 42-75 % Lymphocytes (%) (Auto) 31 12-44 % Monocytes (%) (Auto) 8 0-12 % Eosinophils (%) (Auto) 2 0-10 % Basophils (%) (Auto) 1 0-10 % Neutrophils # (Auto) 5.1 1.8-7.8 10^3/uL Lymphocytes # (Auto) 2.7 1.0-4.0 10^3/uL Monocytes # (Auto) 0.7 0.0-1.0 10^3/uL Eosinophils # (Auto) 0.2 0.0-0.3 10^3/uL Basophils # (Auto) 0.1 0.0-0.1 10^3/uL Immature Granulocyte # (Auto) 0.0 0.0-0.1 10^3/uL Prothrombin Time 12.7 12.2-14.7 SEC INR Comment 0.9 0.8-1.4 D-Dimer < 0.27 0.00-0.49 UG/ML Sodium Level 139 135-145 MMOL/L Potassium Level 3.8 3.6-5.0 MMOL/L Chloride Level 104 98-107 MMOL/L Carbon Dioxide Level 23 21-32 MMOL/L Anion Gap 12 5-14 MMOL/L Blood Urea Nitrogen 15 7-18 MG/DL Creatinine 1.04 0.60-1.30 MG/DL Estimat Glomerular Filtration Rate > 60 BUN/Creatinine Ratio 14 Glucose Level 102 70-105 MG/DL Calcium Level 9.0 8.5-10.1 MG/DL Corrected Calcium 8.8 8.5-10.1 MG/DL Total Bilirubin 1.0 0.1-1.0 MG/DL Aspartate Amino Transf (AST/SGOT) 32 5-34 U/L Alanine Aminotransferase (ALT/SGPT) 50 0-55 U/L Alkaline Phosphatase 107 40-136 U/L Troponin I < 0.028 <0.028 NG/ML Total Protein 7.2 6.4-8.2 GM/DL Albumin 4.2 3.2-4.5 GM/DL Serum Alcohol < 10 <10 MG/DL Urine Color YELLOW Urine Clarity CLEAR Urine pH 6.0 5-9 Urine Specific Cameron >=1.030 1.016-1.022 Urine Protein 2+ H NEGATIVE Urine Glucose (UA) NEGATIVE NEGATIVE Urine Ketones NEGATIVE NEGATIVE Urine Nitrite NEGATIVE NEGATIVE Urine Bilirubin NEGATIVE NEGATIVE Urine Urobilinogen 1.0 < = 1.0 MG/DL Urine Leukocyte Esterase NEGATIVE NEGATIVE Urine RBC (Auto) NEGATIVE NEGATIVE Urine RBC NONE /HPF Urine WBC RARE /HPF Urine Squamous Epithelial Cells 0-2 /HPF Urine Crystals NONE /LPF Urine Bacteria TRACE /HPF Urine Casts NONE /LPF Urine Mucus SMALL H /LPF Urine Culture Indicated NO Urine Opiates Screen NEGATIVE NEGATIVE Urine Oxycodone Screen NEGATIVE NEGATIVE Urine Methadone Screen NEGATIVE NEGATIVE Urine Propoxyphene Screen NEGATIVE NEGATIVE Urine Barbiturates Screen NEGATIVE NEGATIVE Ur Tricyclic Antidepressants Screen NEGATIVE NEGATIVE Urine Phencyclidine Screen NEGATIVE NEGATIVE Urine Amphetamines Screen NEGATIVE NEGATIVE Urine Methamphetamines Screen NEGATIVE NEGATIVE Urine Benzodiazepines Screen NEGATIVE NEGATIVE Urine Cocaine Screen NEGATIVE NEGATIVE Urine Cannabinoids Screen POSITIVE H NEGATIVE My Orders Orders - TERESO MUSE APRN Alcohol (10/17/20 18:21) Cbc With Automated Diff (10/17/20 18:21) Comprehensive Metabolic Panel (10/17/20 18:21) Protime With Inr (10/17/20 18:21) Ed Iv/Invasive Line Start (10/17/20 18:21) Ekg Tracing (10/17/20 18:21) Troponin I (10/17/20 18:21) Fibrin Degradation Products (10/17/20 18:21) Chest 1 View, Ap/Pa Only (10/17/20 18:23) Lorazepam Injection (Ativan Injection) (10/17/20 19:00) Metoprolol Tartrate Injection (Lopressor (10/17/20 19:00) Ua Culture If Indicated (10/17/20 19:12) Drug Screen Stat (Urine) (10/17/20 19:12) Medications Given in ED Current Medications Medications Dose Ordered Sig/Rekha Route Start Time Stop Time Status Last Admin Dose Admin Lorazepam 1 mg ONCE ONCE IVP 10/17/20 19:00 10/17/20 19:01 DC 10/17/20 19:05 1 MG Lorazepam 2 mg STK-MED ONCE .ROUTE 10/17/20 18:15 10/17/20 18:24 DC 10/17/20 18:36 1 MG Metoprolol Tartrate 5 mg ONCE ONCE IV 10/17/20 19:00 10/17/20 19:01 DC 10/17/20 19:05 5 MG Vital Signs/I&O 10/17/20 10/17/20 18:18 18:18 Pulse 125 Resp 11 B/P (MAP) 176/108 (130) Pulse Ox 100 O2 Delivery Room Air Room Air Departure Communication (Admissions) Much better after 2 mg of Ativan, heart rate now down to 100, blood pressure down to 140/100. Respiratory rate down to 20. Impression Primary Impression: Anxiety Disposition: HOME, SELF-CARE Condition: Stable Departure-Patient Inst. Decision time for Depature: 20:01 Referrals: [facility] (PCP/Family) Primary Care Physician Patient Instructions: Anxiety, Adult (DC) Add. Discharge Instructions: 1. Medication as directed 2. Return to ER for any concerns 3. All discharge instructions reviewed with patient and/or family. Voiced understanding. Scripts Hydroxyzine Pamoate (Vistaril) 50 Mg Capsule 50 MG PO Q6H PRN for ANXIETY, #14 CAP Prov: TERESO MUSE APRN 10/17/20 Work/School Note: Work Release Form Date Seen in the Emergency Department: Oct 17, 2020 Return to Work: Oct 19, 2020 TERESO MUSE APRN Oct 17, 2020 18:26
[2020-10-17 18:36] LABS: BASOPHILS # (AUTO) 0.1 10^3/uL (0.0-0.1); BASOPHILS % (AUTO) 1 % (0-10); EOSINOPHILS # (AUTO) 0.2 10^3/uL (0.0-0.3); EOSINOPHILS % (AUTO) 2 % (0-10); HEMATOCRIT 44 % (40-54); LYMPHOCYTES # (AUTO) 2.7 10^3/uL (1.0-4.0); LYMPHOCYTES % (AUTO) 31 % (12-44); MEAN CORPUSCULAR HEMOGLOBIN 28 pg (25-34); MEAN CORPUSCULAR HGB CONC 34 g/dL (32-36); MEAN CORPUSCULAR VOLUME 82 fL (80-99); MEAN PLATELET VOLUME 10.7 fL (9.0-12.2); MONOCYTES # (AUTO) 0.7 10^3/uL (0.0-1.0); MONOCYTES % (AUTO) 8 % (0-12); NEUTROPHILS # (AUTO) 5.1 10^3/uL (1.8-7.8); NEUTROPHILS % (AUTO) 58 % (42-75); PLATELET COUNT 206 10^3/uL (130-400); WHITE BLOOD COUNT 8.8 10^3/uL (4.3-11.0)
[2020-10-17 18:50] LABS: ALBUMIN 4.2 GM/DL (3.2-4.5); CHLORIDE 104 MMOL/L (98-107); POTASSIUM 3.8 MMOL/L (3.6-5.0); SODIUM 139 MMOL/L (135-145)
[2020-10-17 18:53] LABS: GLUCOSE 102 MG/DL (70-105); TOTAL PROTEIN 7.2 GM/DL (6.4-8.2)
[2020-10-17 18:54] LABS: CARBON DIOXIDE 23 MMOL/L (21-32); PROTHROMBIN TIME PATIENT 12.7 SEC (12.2-14.7)
[2020-10-17 18:55] LABS: FIBRIN DEGRADATION PRODUCTS < 0.27 UG/ML (0.00-0.49); INR 0.9 (0.8-1.4)
[2020-10-17 18:56] LABS: ALKALINE PHOSPHATASE 107 U/L (40-136); CREATININE SERUM 1.04 MG/DL (0.60-1.30); GFR ESTIMATED > 60
[2020-10-17 18:57] LABS: BUN/CREATININE RATIO 14
--- NOTE | 2020-10-17 18:58 | Diagnostic Imaging Report ---
INDICATION: Chest pain COMPARISON: 01/16/2019 FINDINGS: Heart size and pulmonary vasculature are within normal limits, and the lungs are clear, bilaterally. IMPRESSION: Unremarkable chest. Dictated by: Dictated on workstation # [id number]
[2020-10-17 18:59] LABS: ALANINE AMINOTRANSFERASE 50 U/L (0-55)
[2020-10-17] MEDS ORDERED: LORazepam INJ 2 MG/ML (ATIVAN) VIAL IVP ONE (19:00)
[2020-10-17] MEDS ORDERED: meTOprolol 5 MG/5 ML (LOPRESSOR) VIAL IV ONE (19:00)
[2020-10-17 19:36] LABS: BILIRUBIN,URINE NEGATIVE (NEGATIVE); CLARITY,URINE CLEAR; COLOR,URINE YELLOW; GLUCOSE, URINE (UA) NEGATIVE (NEGATIVE); KETONES,URINE NEGATIVE (NEGATIVE); LEUKOCYTE ESTERASE ,URINE NEGATIVE (NEGATIVE); NITRITE,URINE NEGATIVE (NEGATIVE); PROTEIN,URINE 2+ (NEGATIVE)
[2020-10-17 19:46] LABS: BACTERIA,URINE TRACE /HPF; SQUAMOUS EPITHELIAL CELL,UR 0-2 /HPF; WBC,URINE RARE /HPF
[2020-10-17 19:50] LABS: AMPHETAMINE SCREEN, URINE NEGATIVE (NEGATIVE); BARBITURATE SCREEN URINE NEGATIVE (NEGATIVE); BENZODIAZEPINES SCREEN URINE NEGATIVE (NEGATIVE); CANNABINOID SCREEN, URINE POSITIVE (NEGATIVE); COCAINE SCREEN URINE NEGATIVE (NEGATIVE); METHADONE STAT NEGATIVE (NEGATIVE); METHAMPHETAMINE SCREEN URINE S NEGATIVE (NEGATIVE); OPIATE SCREEN URINE NEGATIVE (NEGATIVE); OXYCODONE STAT NEGATIVE (NEGATIVE); PROPOXYPHENE STAT NEGATIVE (NEGATIVE); TRICYCLIC ANTIDEPRESSANTS SCRE NEGATIVE (NEGATIVE)
[2020-10-17] MEDS ORDERED: HYDR50CA PO (20:02)
[2020-10-17 20:17] VITALS: BP 144/87
== END 2020-10-17 20:19 | disposition home or self-care (01) ==
LOC: EDUNIT# 18:18 → ER 18:20
DX: F41.9 Anxiety disorder, unspecified (principal); I10 Essential (primary) hypertension; Z77.22 Contact with and (suspected) exposure to environmental tobacco smoke (acute) (chronic)
CPT/HCPCS: 36415; 71045; 80053; 80306; 80320; 81000; 84484; 85025; 85379; 85610; 93005; 96374; 96375

== ENCOUNTER 2021-03-25 22:10 | Emergency (ER) | payer MEDICAID ==
[~2021-03-25] VITALS: Ht 177.8 cm; Wt 120.0 kg
[~2021-03-25 22:10] MED LIST changes: +HYDR50CA PO; -LORazepam INJ 2 MG/ML (ATIVAN) VIAL ONE; -SULF1TAB35 PO; +SULF1TAB38 PO
[2021-03-25 22:13] VITALS: BP 146/99
[2021-03-25 22:28] LABS: BASOPHILS # (AUTO) 0.1 10^3/uL (0.0-0.1); BASOPHILS % (AUTO) 1 % (0-10); EOSINOPHILS # (AUTO) 0.2 10^3/uL (0.0-0.3); EOSINOPHILS % (AUTO) 2 % (0-10); HEMATOCRIT 45 % (40-54); HEMOGLOBIN 15.7 g/dL (13.3-17.7); LYMPHOCYTES # (AUTO) 3.1 10^3/uL (1.0-4.0); LYMPHOCYTES % (AUTO) 33 % (12-44); MEAN CORPUSCULAR HEMOGLOBIN 28 pg (25-34); MEAN CORPUSCULAR HGB CONC 35 g/dL (32-36); MEAN CORPUSCULAR VOLUME 81 fL (80-99); MEAN PLATELET VOLUME 10.6 fL (9.0-12.2); MONOCYTES # (AUTO) 0.5 10^3/uL (0.0-1.0); MONOCYTES % (AUTO) 6 % (0-12); NEUTROPHILS # (AUTO) 5.5 10^3/uL (1.8-7.8); NEUTROPHILS % (AUTO) 58 % (42-75); PLATELET COUNT 206 10^3/uL (130-400); WHITE BLOOD COUNT 9.4 10^3/uL (4.3-11.0)
--- NOTE | 2021-03-25 22:29 | ED Chest Pain ---
General Chief Complaint: Chest Pain Stated Complaint: CHEST PAIN Source: patient (SPEECH VERY DIFFICULT TO UNDERSTAND) History of Present Illness Date Seen by Provider: Mar 25, 2021 Time Seen by Provider: 22:15 Initial Comments PT ARRIVES VIA POV WITH ANOTHER MALE C/O CHEST PAIN SINCE 2019 TONIGHT PAIN BEGAN WHILE HE WAS DRIVING HOME FROM THE [place] HAS BEEN FISHING ALL DAY--NOT A NORMAL ACTIVITY FOR HIM PAIN IS IN MID AND UPPER STERNAL AREA NO RADIATION OF PAIN RATES PAIN "10/10" STATES LAYING DOWN MAKES IT WORSE, STATES "EVERYTHING IT DO HURTS MORE" HAS NOT TAKEN ANYTHING FOR PAIN AT ANY TIME + SHORTNESS OF BREATH NO NAUSEA/VOMITING NO SWEATS NO SWELLING IN LEGS/FEET NO COUGH OR URI SYMPTOMS NO FEVER OR RECENT ILLNESS PT HAS HAD COVID-19 VACCINE X 2 PT DENIES SMOKING, BUT CHEWS TOBACCO PT STATES HE HAS NOT HAD ANY ALCOHOL IN 5 MONTHS DENIES DRUG USE HAD SAME SYMPTOMS IN OCTOBER OF THIS YEAR--DUE TO ANXIETY. PT STATES HE HAS BEEN DX WITH HTN, AND HAS BEEN ON MEDICATIONS, BUT HAS NOT TAKEN THEM FOR ABOUT 5 MONTHS--PT STATES "THEY TOLD ME I DIDN'T HAVE TO TAKE IT ANYMORE" PCP: [facility] Allergies and Home Medications Allergies Coded Allergies: NKANo Known Allergies (Verified Allergy, Unknown, 11/04/05) Patient Home Medication List Home Medication List Reviewed: Yes Amoxicillin (Amoxicillin) 500 Mg Capsule, 500 MG PO TID Prescribed by: TERESO MUSE on 12/28/192257 Hydroxyzine Pamoate (Vistaril) 50 Mg Capsule, 50 MG PO Q6H PRN for ANXIETY Prescribed by: TERESO MUSE on 10/17/202001 Naproxen (Naprosyn) 500 Mg Tablet, 500 MG PO BID PRN for PAIN-MODERATE (5-7) Prescribed by: TERESO MUSE on 12/28/192257 Naproxen (Naproxen) 500 Mg Tablet.dr, 500 MG PO BID Prescribed by: DES SEXTON on 03/25/212307 Paroxetine HCl (Paroxetine HCl) 30 Mg Tablet, (Reported) Entered as Reported by: TANNER KNOX on 02/15/1926 Propranolol HCl (Propranolol HCl) 40 Mg Tablet, (Reported) Entered as Reported by: TANNER KNOX on 02/15/1926 Tramadol HCl (Tramadol HCl) 50 Mg Tablet, 1 TAB PO UD, (Reported) Entered as Reported by: TANNER KNOX on 10/16/162021 Review of Systems Review of Systems Constitutional: no symptoms reported EENTM: No Symptoms Reported Respiratory: See HPI, Shortness of Air Cardiovascular: See HPI, Chest Pain; Denies Edema, Denies Irregular Heart Rate, Denies Lightheadedness, Denies Palpitations, Denies Syncope Gastrointestinal: No Symptoms Reported Genitourinary: No Symptoms Reported Musculoskeletal: no symptoms reported Skin: no symptoms reported Psychiatric/Neurological: Anxiety Endocrine: No Symptoms Reported Hematologic/Lymphatic: No Symptoms Reported Past Umzeycd-Tipgwb-Hubvuy Hx Patient Social History Tobacco Use?: Yes Smoking Status: Never a Smoker Smokeless Tobacco Frequency: Current Everyday User Substance use?: No Alcohol Use?: Yes (IN PAST, NONE X 5 MONTHS PER PT ON 03/25/21) Immunizations Up To Date Tetanus Booster (TDap): Less than 5yrs Seasonal Allergies Seasonal Allergies: No Past Medical History Surgery/Hospitalization HX: HERNIA REPAIR NOSE SURGERY Surgeries: Yes (HERNIA REPAIR) Abdominal, Nose Respiratory: No Cardiac: Yes (NO MEDICATIONS X 5 MONTHS, PER PT 03/25/21) Hypertension Neurological: No Reproductive Disorders: No Genitourinary: No Gastrointestinal: No Musculoskeletal: Yes Arthritis, Chronic Back Pain Endocrine: No HEENT: Yes (NOSE SURGERY) Cancer: No Psychosocial: Yes Anxiety, Bipolar, Depression Integumentary: No Blood Disorders: No Family Medical History Patient reports no known family medical history. No Pertinent Family Hx Physical Exam Vital Signs Vital Signs - First Documented 03/25/21 22:13 Temp 36.7 Pulse 97 Resp 20 B/P (MAP) 146/99 (115) Pulse Ox 97 O2 Delivery Room Air Capillary Refill : Height, Weight, BMI Height: 5'9.00" Weight: 240lbs. oz. 108.350168hc; 33.00 BMI Method:Stated General Appearance: No Apparent Distress, WD/WN, Obese, Other (DIRTY, UNKEMPT, MALODOROUS, SPEECH IMPEDIMENT) Neck: Full Range of Motion, Normal Inspection, Non Tender, Supple Respiratory: Normal Breath Sounds, No Accessory Muscle Use, No Respiratory Distress, Other (DIFFUSE UPPER AND MID CHEST TENDERNESS--PALPATION REPRODUCES PAIN ) Cardiovascular: Regular Rate, Rhythm, No Edema, No JVD, No Murmur, Normal Peripheral Pulses Gastrointestinal: Normal Bowel Sounds, No Organomegaly, Non Tender, Soft Extremity: Normal Capillary Refill, Normal Inspection, Normal Range of Motion, Non Tender, No Calf Tenderness, No Pedal Edema Neurologic/Psychiatric: Alert, Oriented x3, No Motor/Sensory Deficits, 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 Norm as Tested, Other (ANXIOUS) Skin: Normal Color, Warm/Dry, Tattoos/Piercings Procedures/Interventions Suture Size: 4-0 Progress/Results/Core Measures Results/Orders Lab Results Laboratory Tests Test 03/25/21 22:19 03/25/21 22:47 Range/Units White Blood Count 9.4 4.3-11.0 10^3/uL Red Blood Count 5.53 H 4.30-5.52 10^6/uL Hemoglobin 15.7 13.3-17.7 g/dL Hematocrit 45 40-54 % Mean Corpuscular Volume 81 80-99 fL Mean Corpuscular Hemoglobin 28 25-34 pg Mean Corpuscular Hemoglobin Concent 35 32-36 g/dL Red Cell Distribution Width 12.7 10.0-14.5 % Platelet Count 206 130-400 10^3/uL Mean Platelet Volume 10.6 9.0-12.2 fL Immature Granulocyte % (Auto) 0 % Neutrophils (%) (Auto) 58 42-75 % Lymphocytes (%) (Auto) 33 12-44 % Monocytes (%) (Auto) 6 0-12 % Eosinophils (%) (Auto) 2 0-10 % Basophils (%) (Auto) 1 0-10 % Neutrophils # (Auto) 5.5 1.8-7.8 10^3/uL Lymphocytes # (Auto) 3.1 1.0-4.0 10^3/uL Monocytes # (Auto) 0.5 0.0-1.0 10^3/uL Eosinophils # (Auto) 0.2 0.0-0.3 10^3/uL Basophils # (Auto) 0.1 0.0-0.1 10^3/uL Immature Granulocyte # (Auto) 0.0 0.0-0.1 10^3/uL Prothrombin Time 12.9 12.2-14.7 SEC INR Comment 0.9 0.8-1.4 Activated Partial Thromboplast Time 28 24-35 SEC Sodium Level 141 135-145 MMOL/L Potassium Level 3.7 3.6-5.0 MMOL/L Chloride Level 106 98-107 MMOL/L Carbon Dioxide Level 22 21-32 MMOL/L Anion Gap 13 5-14 MMOL/L Blood Urea Nitrogen 12 7-18 MG/DL Creatinine 0.93 0.60-1.30 MG/DL Estimat Glomerular Filtration Rate 97 BUN/Creatinine Ratio 13 Glucose Level 113 H 70-105 MG/DL Calcium Level 9.9 8.5-10.1 MG/DL Corrected Calcium 9.7 8.5-10.1 MG/DL Magnesium Level 2.0 1.6-2.4 MG/DL Total Bilirubin 0.7 0.1-1.0 MG/DL Aspartate Amino Transf (AST/SGOT) 20 5-34 U/L Alanine Aminotransferase (ALT/SGPT) 34 0-55 U/L Alkaline Phosphatase 103 40-136 U/L Total Creatine Kinase 139 30-200 U/L Creatine Kinase MB 1.4 <6.6 NG/ML Myoglobin 37.8 10.0-92.0 NG/ML Troponin I < 0.028 <0.028 NG/ML B-Type Natriuretic Peptide < 10.0 <100.0 PG/ML Total Protein 7.9 6.4-8.2 GM/DL Albumin 4.2 3.2-4.5 GM/DL Amylase Level 61 25-125 U/L Lipase 26 8-78 U/L Serum Alcohol < 10 <10 MG/DL Urine Color YELLOW Urine Clarity CLEAR Urine pH 6.0 5-9 Urine Specific Bath >=1.030 1.016-1.022 Urine Protein 1+ H NEGATIVE Urine Glucose (UA) NEGATIVE NEGATIVE Urine Ketones NEGATIVE NEGATIVE Urine Nitrite NEGATIVE NEGATIVE Urine Bilirubin NEGATIVE NEGATIVE Urine Urobilinogen 0.2 < = 1.0 MG/DL Urine Leukocyte Esterase NEGATIVE NEGATIVE Urine RBC (Auto) NEGATIVE NEGATIVE Urine RBC NONE /HPF Urine WBC RARE /HPF Urine Squamous Epithelial Cells 0-2 /HPF Urine Crystals PRESENT H /LPF Urine Calcium Oxalate Crystals RARE H /LPF Urine Bacteria TRACE /HPF Urine Casts NONE /LPF Urine Mucus SMALL H /LPF Urine Culture Indicated NO Urine Opiates Screen NEGATIVE NEGATIVE Urine Oxycodone Screen NEGATIVE NEGATIVE Urine Methadone Screen NEGATIVE NEGATIVE Urine Propoxyphene Screen NEGATIVE NEGATIVE Urine Barbiturates Screen NEGATIVE NEGATIVE Ur Tricyclic Antidepressants Screen NEGATIVE NEGATIVE Urine Phencyclidine Screen NEGATIVE NEGATIVE Urine Amphetamines Screen NEGATIVE NEGATIVE Urine Methamphetamines Screen NEGATIVE NEGATIVE Urine Benzodiazepines Screen NEGATIVE NEGATIVE Urine Cocaine Screen NEGATIVE NEGATIVE Urine Cannabinoids Screen NEGATIVE NEGATIVE My Orders Orders - DES SEXTON DO Ekg Tracing (03/25/21 22:14) Monitor-Rhythm Ecg Trace Only (03/25/21 22:14) Alcohol (03/25/21 22:21) Amylase (03/25/21 22:21) BNP (03/25/21 22:21) Cbc With Automated Diff (03/25/21:21) Comprehensive Metabolic Panel (03/25/21 22:21) Creatine Kinase (03/25/21 22:21) Creatine Kinase Mb (03/25/21 22:21) Drug Screen Stat (Urine) (03/25/21 22:21) Lipase (03/25/21 22:21) Magnesium (03/25/21 22:21) Protime With Inr (03/25/21 22:21) Partial Thromboplastin Time (03/25/21 22:21) Ua Culture If Indicated (03/25/21 22:21) Myoglobin Serum (03/25/21 22:21) Troponin I (03/25/21 22:21) Chest 1 View, Ap/Pa Only (03/25/21 22:21) Ed Iv/Invasive Line Start (03/25/21 22:21) Aspirin Chewable Tablet (Baby Aspirin Ch (03/25/21 22:30) Ketorolac Injection (Toradol Injection) (03/25/21 22:30) Pantoprazole Injection (Protonix Injecti (03/25/21 22:30) Ed Iv/Invasive Line Start (03/25/21 22:25) Lactated Ringers (Lr 1000 Ml Iv Solution (03/25/21 22:30) Lactated Ringers (Lr 1000 Ml Iv Solution (03/25/21 22:35) Medications Given in ED Current Medications Medications Dose Ordered Sig/Rekha Route Start Time Stop Time Status Last Admin Dose Admin Aspirin 324 mg ONCE ONCE PO 03/25/21 22:30 03/25/21 22:31 DC 03/25/21 22:39 324 MG Ketorolac Tromethamine 30 mg ONCE ONCE IVP 03/25/21 22:30 03/25/21 22:31 DC 03/25/21 22:38 30 MG Lactated Ringer's 1,000 ml @ 0 mls/hr Q0M ONCE IV 03/25/21 22:30 03/25/21 22:35 DC 03/25/21 22:38 1,000 MLS/HR Pantoprazole 40 mg ONCE ONCE IV 03/25/21 22:30 03/25/21 22:31 DC 03/25/21 22:38 40 MG Vital Signs/I&O 03/25/21 22:13 Temp 36.7 Pulse 97 Resp 20 B/P (MAP) 146/99 (115) Pulse Ox 97 O2 Delivery Room Air Progress Progress Note : Progress Note GIVEN IV FLUIDS GIVEN TORADOL AND PROTONIX WITH IMPROVEMENT IN SYMPTOMS Initial ECG Impression Date: Mar 25, 2021 Initial ECG Impression Time: 22:15 Initial ECG Rate: 99 Initial ECG Rhythm: Normal Sinus Diagnostic Imaging Comments CXR--NO ACUTE PROCESS, PER RADIOLOGIST REPORT AT 2304 Reviewed: Reviewed by Me Departure Impression Primary Impression: Chest wall pain Disposition: HOME, SELF-CARE Condition: Improved Departure-Patient Inst. Decision time for Depature: 23:05 Referrals: [facility] (PCP/Family) Primary Care Physician Patient Instructions: Costochondritis (DC), Chest Pain That Is Not Caused by the Heart (DC) Add. Discharge Instructions: ALTERNATE ICE AND HEAT TO SORE AREA AT 20 MINUTE INTERVALS LOTS OF FLUIDS FOLLOW UP WITH [facility] IN 2-3 DAYS IF NO BETTER, RETURN TO ER IF WORSE All discharge instructions reviewed with patient and/or family. Voiced und erstanding. Scripts Naproxen (Naproxen) 500 Mg Tablet. 500 MG PO BID, #20 TAB Prov: DES SEXTON DO 03/25/21 DES SEXTON DO Mar 25, 2021 22:29
[2021-03-25] MEDS ORDERED: ASPIRIN 81 MG CHEW (CHILDREN'S ASA) PO ONE (22:30)
[2021-03-25] MEDS ORDERED: LACTATED RINGERS 1,000 ML IV ONE ×2 (22:30→22:35)
[2021-03-25] MEDS ORDERED: PANTOPRAZOLE 40 MG (PROTONIX) VIAL IV ONE (22:30)
[2021-03-25] MEDS ORDERED: KETOROLAC 30 MG/ML VIAL IVP ONE (22:30)
[2021-03-25 22:39] LABS: ALBUMIN 4.2 GM/DL (3.2-4.5); INR 0.9 (0.8-1.4); PROTHROMBIN TIME PATIENT 12.9 SEC (12.2-14.7)
[2021-03-25 22:40] LABS: CHLORIDE 106 MMOL/L (98-107); POTASSIUM 3.7 MMOL/L (3.6-5.0); SODIUM 141 MMOL/L (135-145)
[2021-03-25 22:41] LABS: AMYLASE 61 U/L (25-125); CALCIUM 9.9 MG/DL (8.5-10.1)
[2021-03-25 22:42] LABS: GLUCOSE 113 MG/DL (70-105); TOTAL PROTEIN 7.9 GM/DL (6.4-8.2)
[2021-03-25 22:43] LABS: CARBON DIOXIDE 22 MMOL/L (21-32)
[2021-03-25 22:44] LABS: BILIRUBIN,TOTAL 0.7 MG/DL (0.1-1.0)
[2021-03-25 22:45] LABS: ALKALINE PHOSPHATASE 103 U/L (40-136)
[2021-03-25 22:46] LABS: CREATININE SERUM 0.93 MG/DL (0.60-1.30); GFR ESTIMATED 97
[2021-03-25 22:47] LABS: BUN/CREATININE RATIO 13
[2021-03-25 22:49] LABS: ALANINE AMINOTRANSFERASE 34 U/L (0-55)
[2021-03-25 22:50] LABS: CREATINE KINASE 139 U/L (30-200); LIPASE 26 U/L (8-78)
[2021-03-25 22:52] LABS: BILIRUBIN,URINE NEGATIVE (NEGATIVE); CLARITY,URINE CLEAR; COLOR,URINE YELLOW; GLUCOSE, URINE (UA) NEGATIVE (NEGATIVE); KETONES,URINE NEGATIVE (NEGATIVE); LEUKOCYTE ESTERASE ,URINE NEGATIVE (NEGATIVE); NITRITE,URINE NEGATIVE (NEGATIVE); PROTEIN,URINE 1+ (NEGATIVE)
[2021-03-25 22:57] LABS: CREATINE KINASE MB 1.4 NG/ML (<6.6)
[2021-03-25 22:59] LABS: BACTERIA,URINE TRACE /HPF; CALCIUM OXALATE CRYSTALS,UR RARE /LPF; SQUAMOUS EPITHELIAL CELL,UR 0-2 /HPF; WBC,URINE RARE /HPF
--- NOTE | 2021-03-25 23:02 | Diagnostic Imaging Report ---
INDICATION: Chest pain. EXAMINATION: Chest, 03/25/2021. COMPARISON: 10/17/2020. FINDINGS: The cardiomediastinal silhouette is unremarkable. The pulmonary vasculature is within normal limits. The lungs and pleural spaces are clear. IMPRESSION: No evidence of an acute cardiopulmonary process. Dictated by: Dictated on workstation # [id number]
[2021-03-25 23:03] LABS: AMPHETAMINE SCREEN, URINE NEGATIVE (NEGATIVE); BARBITURATE SCREEN URINE NEGATIVE (NEGATIVE); BENZODIAZEPINES SCREEN URINE NEGATIVE (NEGATIVE); CANNABINOID SCREEN, URINE NEGATIVE (NEGATIVE); COCAINE SCREEN URINE NEGATIVE (NEGATIVE); METHADONE STAT NEGATIVE (NEGATIVE); METHAMPHETAMINE SCREEN URINE S NEGATIVE (NEGATIVE); OPIATE SCREEN URINE NEGATIVE (NEGATIVE); OXYCODONE STAT NEGATIVE (NEGATIVE); PROPOXYPHENE STAT NEGATIVE (NEGATIVE); TRICYCLIC ANTIDEPRESSANTS SCRE NEGATIVE (NEGATIVE)
[2021-03-25] MEDS ORDERED: NAPR500T8 PO (23:08)
== END 2021-03-25 23:20 | disposition home or self-care (01) ==
LOC: EDUNIT# 22:10 → ER 22:12
DX: R07.89 Other chest pain (principal); I10 Essential (primary) hypertension; E66.9 Obesity, unspecified; F41.9 Anxiety disorder, unspecified; F32.9 Major depressive disorder, single episode, unspecified; F17.290 Nicotine dependence, other tobacco product, uncomplicated; Z68.33 Body mass index [BMI] 33.0-33.9, adult; Z79.899 Other long term (current) drug therapy
CPT/HCPCS: 36415; 71045; 80053; 80306; 80320; 81000; 82150; 82550; 82553; 83690; 83735; 83874; 83880; 84484; 85025; 85610; 85730; 93005; 93041

== ENCOUNTER 2021-05-05 21:35 | Emergency (ER) | payer MEDICAID ==
[~2021-05-05] VITALS: Ht 152.4 cm; Wt 110.0 kg
[~2021-05-05 21:35] MED LIST changes: +NAPR500T8 PO
[2021-05-05 21:40] VITALS: BP 153/86
[2021-05-05] MEDS ORDERED: RX-CYCLOBENZAPRINE 10 MG (FLEXERIL) TAB PPK#3 PO STA (21:55)
[2021-05-05] MEDS ORDERED: RX-NAPROXEN (NAPROSYN) 250 MG TAB PPK#4 PO STA (21:55)
[2021-05-05] MEDS ORDERED: NAPR500T8 PO (21:58)
[2021-05-05] MEDS ORDERED: CYCL10TA9 PO (21:58)
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
== END 2021-05-05 22:07 | disposition home or self-care (01) ==
LOC: ER 21:35 → EDUNIT# 21:35 → ER 22:07
DX: S46.811A Strain of other muscles, fascia and tendons at shoulder and upper arm level, right arm, initial encounter (principal); I10 Essential (primary) hypertension; F41.9 Anxiety disorder, unspecified; F32.9 Major depressive disorder, single episode, unspecified; F17.200 Nicotine dependence, unspecified, uncomplicated; Z79.899 Other long term (current) drug therapy
CPT/HCPCS: 99282

== ENCOUNTER 2021-07-22 21:35 | Emergency (ER) | payer MEDICAID ==
[~2021-07-22] VITALS: Ht 183 cm; Wt 115.7 kg
[~2021-07-22 21:35] MED LIST changes: +CYCL10TA25 PO
[2021-07-22 22:03] VITALS: BP 143/90
--- NOTE | 2021-07-22 22:43 | ED Cough/URI ---
General Chief Complaint: COVID19 Suspect/Confirmed Stated Complaint: COVID EXPOSURE Nursing Triage Note: PT AMB TO TRIAGE W REPORTS OF COUGH AND RUNNY NOSE SX THIS AM. REPORTS HE WAS EXPOSED TO COVID 2 DAYS AGO. PT C/O CP W COUGH. A&OX4, DENIES PAIN AT THIS TIME. History of Present Illness Date Seen by Provider: Jul 22, 2021 Time Seen by Provider: 22:03 Initial Comments 30-year-old male presents for COVID symptoms that began earlier today. He has not been tested thus far. He did receive his vaccine but he is not sure which one or the exact dates, he has not received a booster. He is unsure if he got a flu shot this year. He has a cough which causes a burning sensation in his chest, no chest pain. He has not taken any medications for his symptoms. He denies any shortness of breath or fever. Timing/Duration: this morning Severity/Quality: dry cough Prior Episodes/Possible Cause: no prior episodes Associated Symptoms: cough, headache, nasal congestion Allergies and Home Medications Allergies Coded Allergies: NKANo Known Allergies (Verified Allergy, Unknown, 11/04/05) Patient Home Medication List Home Medication List Reviewed: Yes Amoxicillin (Amoxicillin) 500 Mg Capsule, 500 MG PO TID Prescribed by: TERESO MUSE on 12/28/192257 Cyclobenzaprine HCl (Cyclobenzaprine HCl) 10 Mg Tablet, 10 MG PO Q8H PRN for SPASMS Prescribed by: DES SEXTON on 05/05/212157 Hydroxyzine Pamoate (Vistaril) 50 Mg Capsule, 50 MG PO Q6H PRN for ANXIETY Prescribed by: TERESO MUSE on 10/17/202001 Naproxen (Naprosyn) 500 Mg Tablet, 500 MG PO BID PRN for PAIN-MODERATE (5-7) Prescribed by: TERESO MUSE on 12/28/192257 Naproxen (Naproxen) 500 Mg Tablet.dr, 500 MG PO BID Prescribed by: DES SEXTON on 03/25/212307 Naproxen (Naproxen) 500 Mg Tablet.dr, 500 MG PO BID Prescribed by: DES SEXTON on 05/05/212157 Paroxetine HCl (Paroxetine HCl) 30 Mg Tablet, (Reported) Entered as Reported by: TANNER KNOX on 8/11/19 0027 Propranolol HCl (Propranolol HCl) 40 Mg Tablet, (Reported) Entered as Reported by: TANNER KNOX on 02/15/1926 Tramadol HCl (Tramadol HCl) 50 Mg Tablet, 1 TAB PO UD, (Reported) Entered as Reported by: TANNER KNOX on 10/16/162021 Review of Systems Review of Systems Constitutional: see HPI, malaise EENTM: see HPI, nose congestion Respiratory: see HPI, cough; No short of breath Cardiovascular: no symptoms reported, see HPI; No chest pain Gastrointestinal: no symptoms reported, see HPI All Other Systems Reviewed Negative Unless Noted: Yes Past Jnylpsn-Qksahc-Spbrgg Hx Patient Social History Tobacco Use?: No Smokeless Tobacco Frequency: Current Everyday User Use of E-Cig and/or Vaping dev: No Substance use?: No Alcohol Use?: No Immunizations Up To Date Tetanus Booster (TDap): Less than 5yrs Influenza Vaccine Up-to-Date: No; Not Current First/Initial COVID19 Vaccinat: 12/26 Second COVID19 Vaccination Don: 12/26 Third COVID19 Vaccination Date: 12/26 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" Seasonal Allergies Seasonal Allergies: No Past Medical History Surgery/Hospitalization HX: HERNIA REPAIR, NOSE SURGERY Surgeries: Yes (HERNIA REPAIR) Abdominal, Nose Respiratory: No Cardiac: Yes (NO MEDICATIONS X 5 MONTHS, PER PT 03/25/21) Hypertension Neurological: No Reproductive Disorders: No Genitourinary: No Gastrointestinal: No Musculoskeletal: Yes Arthritis, Chronic Back Pain Endocrine: No HEENT: Yes (NOSE SURGERY) Cancer: No Psychosocial: Yes Anxiety, Bipolar, Depression Integumentary: No Blood Disorders: No Family Medical History Reviewed Nursing Family Hx Patient reports no known family medical history. No Pertinent Family Hx Physical Exam Vital Signs - First Documented 07/22/21 22:03 Temp 37.0 Pulse 98 Resp 20 B/P (MAP) 143/90 (107) Pulse Ox 98 O2 Delivery Room Air Capillary Refill : Less Than 3 Seconds Height: 5'9.00" Weight: 240lbs. oz. 108.180391kb; 34.00 BMI Method:Stated General Appearance: WD/WN, no apparent distress HEENT: PERRL/EOMI, normal ENT inspection, TMs normal, pharynx normal Neck: non-tender, full range of motion, supple, normal inspection Respiratory: chest non-tender, lungs clear, normal breath sounds, no respirator y distress Cardiovascular: normal peripheral pulses, regular rate, rhythm, no murmur Gastrointestinal: normal bowel sounds, non tender, soft Extremities: normal range of motion, non-tender, normal inspection, no pedal edema, normal capillary refill Neurologic/Psychiatric: no motor/sensory deficits, alert, normal mood/affect, oriented x 3 Skin: normal color, warm/dry Procedures/Interventions Suture Size: 4-0 Progress/Results/Core Measures Suspected Sepsis SIRS Temperature: Pulse: 98 Respiratory Rate: 20 Blood Pressure 143 /90 Mean: 107 Results/Orders Lab Results Laboratory Tests Test 07/22/21 22:10 Range/Units Influenza Type A Antigen NEGATIVE NEGATIVE Influenza Type B Antigen NEGATIVE NEGATIVE My Orders Orders - TAMARA [place] Influenza A & B Antigens (07/22/21 21:57) Coronavirus Sars-Cov-2 So 2018 (07/22/21 21:57) Vital Signs/I&O 07/22/21 22:03 Temp 37.0 Pulse 98 Resp 20 B/P (MAP) 143/90 (107) Pulse Ox 98 O2 Delivery Room Air Capillary Refill : Less Than 3 Seconds Blood Pressure Mean: 107 Departure Impression Primary Impression: Person under investigation for COVID-19 Additional Impression: Cough Disposition: 01 HOME, SELF-CARE Condition: Stable Departure-Patient Inst. Decision time for Depature: 22:40 Referrals: [facility] (PCP/Family) Primary Care Physician Patient Instructions: COVID-19 (DC) Add. Discharge Instructions: Drink 16 oz of Water every 2 hours, while awake. Walk for 5 to 10 minutes every hour while awake and take deep breaths. Take aspirin 81 mg once daily. Take a multivitamin with vitamin C, D and zinc. Call your primary care provider if your symptoms are not improving or worsen. Sleep on your stomach. You can take over the counter cough/cold medicines, as needed for your symptoms (such as Dayquil/Nyquil) Alternate between Tylenol 650 mg and ibuprofen 600 mg every 4 hours as needed for fever or general discomfort We will call you with the COVID results in 24-48 hours, assume you have COVID until we call you. Quarantine per [facility] guidelines. Stay HOME. Return to emergency department for new, urgent healthcare needs. All discharge instructions reviewed with patient and/or family. Voiced understanding. TAMARA [place] Jul 22, 2021 22:43
== END 2021-07-22 22:50 | disposition home or self-care (01) ==
LOC: EDUNIT# 21:35 → ER 21:43
DX: U07.1 COVID-19 (principal); I10 Essential (primary) hypertension; F41.9 Anxiety disorder, unspecified; F32.9 Major depressive disorder, single episode, unspecified; G89.29 Other chronic pain; M54.9 Dorsalgia, unspecified; F17.290 Nicotine dependence, other tobacco product, uncomplicated; Z79.891 Long term (current) use of opiate analgesic; Z79.899 Other long term (current) drug therapy
CPT/HCPCS: 87635; 87804; 99283

== ENCOUNTER 2021-12-24 20:00 | Emergency (ER) | payer MEDICAID ==
[~2021-12-24] VITALS: Ht 183 cm; Wt 111.0 kg
[2021-12-24 20:08] VITALS: BP 149/92
--- NOTE | 2021-12-24 20:18 | ED EENT ---
History of Present Illness General Chief Complaint: Nasal Problems Stated Complaint: NOSE INJURY, DIZZY Source: patient Exam Limitations: no limitations History of Present Illness Date Seen by Provider: Dec 24, 2021 Time Seen by Provider: 20:18 Initial Comments This is a well-appearing 31-year-old male who presented to the ER with complaints of pain to his nasal bridge. States that he was playing with his niece whenever she accidentally hit him in the nose. He has a prior nasal fracture injury, he is reporting most of the tenderness right on the anterior aspect. States he is concerned he may have rebroke his nose and would like to have it evaluated. Has not taken anything prior to arrival. States that the incident occurred just shortly before he presented to the ER. He is still able to smell out of each nostril, there is no bleeding, no discharge. Allergies and Home Medications Allergies Coded Allergies: Natan Known Allergies (Verified Allergy, Unknown, 11/04/05) Patient Home Medication List Home Medication List Reviewed: Yes Amoxicillin (Amoxicillin) 500 Mg Capsule, 500 MG PO TID Prescribed by: TERESO MUSE on 12/28/192257 Amoxicillin/Potassium Clav (Amox Tr-K Clv 875-125 mg Tab) 875 Mg-125 Mg Tablet, 1 EACH PO BID Prescribed by: LORRAINE ALVAREZ on 12/24/212114 Cyclobenzaprine HCl (Cyclobenzaprine HCl) 10 Mg Tablet, 10 MG PO Q8H PRN for SPASMS Prescribed by: DES SEXTON on 05/05/212157 Hydroxyzine Pamoate (Vistaril) 50 Mg Capsule, 50 MG PO Q6H PRN for ANXIETY Prescribed by: TERESO MUSE on 10/17/202001 Naproxen (Naprosyn) 500 Mg Tablet, 500 MG PO BID PRN for PAIN-MODERATE (5-7) Prescribed by: TERESO MUSE on 12/28/192257 Naproxen (Naproxen) 500 Mg Tablet.dr, 500 MG PO BID Prescribed by: DES SEXTON on 03/25/212307 Naproxen (Naproxen) 500 Mg Tablet.dr, 500 MG PO BID Prescribed by: DES SEXTON on 05/05/212157 Paroxetine HCl (Paroxetine HCl) 30 Mg Tablet, (Reported) Entered as Reported by: TANNER KNOX on 8/11/19 0027 Propranolol HCl (Propranolol HCl) 40 Mg Tablet, (Reported) Entered as Reported by: TANNER KNOX on 02/15/1926 Tramadol HCl (Tramadol HCl) 50 Mg Tablet, 1 TAB PO UD, (Reported) Entered as Reported by: TANNER KNOX on 10/16/162021 Review of Systems Review of Systems Constitutional: no symptoms reported Eyes: No Symptoms Reported Ears: No Symptoms Reported Nose: see HPI Mouth: no symptoms reported Throat: no symptoms reported Respiratory: no symptoms reported Cardiovascular: no symptoms reported Gastrointestinal: no symptoms reported Musculoskeletal: no symptoms reported Skin: no symptoms reported Past Btjomcp-Escmsb-Hvcvqr Hx Immunizations Up To Date Tetanus Booster (TDap): Less than 5yrs First/Initial COVID19 Vaccinat: 12/26 Second COVID19 Vaccination Don: 12/26 Third COVID19 Vaccination Date: 12/26 Seasonal Allergies Seasonal Allergies: No Past Medical History Surgery/Hospitalization HX: HERNIA REPAIR, NOSE SURGERY Surgeries: Yes (HERNIA REPAIR) Abdominal, Nose Respiratory: No Cardiac: Yes (NO MEDICATIONS X 5 MONTHS, PER PT 03/25/21) Hypertension Neurological: No Reproductive Disorders: No Genitourinary: No Gastrointestinal: No Musculoskeletal: Yes Arthritis, Chronic Back Pain Endocrine: No HEENT: Yes (NOSE SURGERY) Cancer: No Psychosocial: Yes Anxiety, Bipolar, Depression Integumentary: No Blood Disorders: No Family Medical History Patient reports no known family medical history. No Pertinent Family Hx Physical Exam Vital Signs Vital Signs - First Documented 12/24/21 20:08 Temp 36.5 Pulse 94 Resp 18 B/P (MAP) 149/92 (111) Pulse Ox 96 O2 Delivery Room Air Height, Weight, BMI Height: 5'9.00" Weight: 240lbs. oz. 108.403064my; 34.00 BMI Method:Stated General Appearance: WD/WN, no apparent distress Eyes: bilateral eye normal inspection, bilateral eye PERRL, bilateral eye EOMI Ears: bilateral ear auricle normal, bilateral ear canal normal Nose: normal inspection; No active bleeding, No discharge; dried blood, other (No obvious deformities of the nasal bridge. No septal deviation.) Mouth/Throat: normal mouth inspection, pharynx normal, dental tenderness; No excessive drooling Neck: full range of motion, supple, normal inspection Cardiovascular: regular rate, rhythm, no murmur Gastrointestinal: normal bowel sounds, non tender, soft Neurologic/Psychiatric: no motor/sensory deficits, alert, normal mood/affect, oriented x 3 Skin: normal color, warm/dry Procedures/Interventions Suture Size: 4-0 Progress/Results/Core Measures Results/Orders My Orders Medications Given in ED Vital Signs/I&O Diagnostic Imaging Diagonstic Imaging: Xray Comments [facility] [place], [place] NAME: DARLIN MARTINEZ [facility] REC#: [id number] PT STATUS: REG ER : 1990 PHYSICIAN: LORRAINE ALVAREZ WATCH REPAIR PERSON ADMIT DATE: 12/24/21/ER Signed Date of Exam:12/24/21 NASAL BONES 3 VIEWS INDICATION: Injury to the nose. Prior history of nasal fracture. EXAMINATION: Nasal bone, 12/24/2021. COMPARISON: 12/28/2019. FINDINGS: On the lateral view, the previously noted comminuted appearance to the nasal bone anteriorly has improved. There is a single linear osseous fragment which may be normal for patient; however, a nondisplaced fracture is not excluded. The nasal septum appears stable from previous. The adjacent paranasal sinuses are grossly clear. IMPRESSION: Better appearance of the nasal bones as compared to previous examination with a single osseous fragment along the anterior superior aspect of the nose which could represent a nondisplaced acute fracture. Correlate with point tenderness. Dictated by: Dictated on workstation # [id number] Dict: 12/24/212100 Trans: 12/24/212109 [facility] [id number] Interpreted by: ALESSANDRO WHITLOCK MD Electronically signed by: ALESSANDRO WHITLOCK MD 12/24/212109 Departure Impression Primary Impression: Nasal bone fracture Disposition: 01 HOME, SELF-CARE Condition: Improved Departure-Patient Inst. Decision time for Depature: 21:13 Referrals: [facility] [place] ([place]/Family) Primary Care Physician Patient Instructions: Nose Fracture ED Add. Discharge Instructions: 1. Follow up with Dr. Colvin, call office to schedule appointment. 2. Take copy of your x-ray with you to your appointment. 3. Take Augmentin by mouth twice a day for 7 days. 4. May take Ibuprofen 600mg by mouth ever 6 hours as needed for pain. 5. Return for any new, concerning, or worsening symptoms. All discharge instructions reviewed with patient and/or family. Voiced un derstanding. Scripts Amoxicillin/Potassium Clav (Amox Tr-K Clv 875-125 mg Tab) 875 Mg-125 Mg Tablet 1 EACH PO BID for 7 Days, #13 TAB 0 Refills Prov: LORRAINE ALVAREZ APRN 12/24/21 LORRAINE ALVAREZ WATCH REPAIR PERSON Dec 24, 2021 20:18
[2021-12-24] MEDS ORDERED: IBUPROFEN 600 MG (MOTRIN) TAB PO ONE (20:30)
--- NOTE | 2021-12-24 21:06 | Diagnostic Imaging Report ---
INDICATION: Injury to the nose. Prior history of nasal fracture. EXAMINATION: Nasal bone, 12/24/2021. COMPARISON: 12/28/2019. FINDINGS: On the lateral view, the previously noted comminuted appearance to the nasal bone anteriorly has improved. There is a single linear osseous fragment which may be normal for patient; however, a nondisplaced fracture is not excluded. The nasal septum appears stable from previous. The adjacent paranasal sinuses are grossly clear. IMPRESSION: Better appearance of the nasal bones as compared to previous examination with a single osseous fragment along the anterior superior aspect of the nose which could represent a nondisplaced acute fracture. Correlate with point tenderness. Dictated by: Dictated on workstation # [id number]
[2021-12-24] MEDS ORDERED: AUGMENTIN 875 MG TAB (AMOXICILLIN/CLAVULANATE) PO ONE (21:15)
[2021-12-24] MEDS ORDERED: AMOX1TAB12 PO (21:15)
== END 2021-12-24 21:20 | disposition home or self-care (01) ==
LOC: EDUNIT# 20:00 → ER 20:02
DX: S02.2XXA Fracture of nasal bones, initial encounter for closed fracture (principal); Z98.890 Other specified postprocedural states; X58.XXXA Exposure to other specified factors, initial encounter
CPT/HCPCS: 70160

== ENCOUNTER 2023-02-24 10:45 | Emergency (ER) | payer MEDICAID ==
[~2023-02-24] VITALS: Ht 180.3 cm; Wt 122.5 kg
[~2023-02-24 10:45] MED LIST changes: +ALBU8.5H6 IH; +AMOX1TAB12 PO; -RT-ALBUINH IH
--- NOTE | 2023-02-24 10:59 | ED Upper Extremity ---
General Chief Complaint: Upper Extremity Stated Complaint: RIGHT ARM PAIN Source: patient Exam Limitations: no limitations History of Present Illness Date Seen by Provider: Feb 24, 2023 Time Seen by Provider: 10:59 Initial Comments Patient is a 32yo male who presents to the ER with right shoulder pain. Woke up with ithe pain at 6am. He took 2 extra strength Tylenol and went back to bed. Could not sleep due to the pain. Complains that moving his arm makes the pain worse. Does not recall any injury or falls. No recent heavy lifting. Never had this before. He has not taken anything else or applied any medications. He denies shortness of breath, nausea, palpitations. He is a non smoker. Only takes a medication for his "anger issues". No family history of "early" CAD. Onset: this morning (6am) Severity: severe Pain/Injury Location: right shoulder Method of Injury: unknown Modifying Factors: Improves With Immobilization; Worse With Movement Allergies and Home Medications Allergies Coded Allergies: NKANo Known Allergies (Verified Allergy, Unknown, 11/04/05) Patient Home Medication List Home Medication List Reviewed: Yes Amoxicillin (Amoxicillin) 500 Mg Capsule, 500 MG PO TID Prescribed by: TERESO MUSE on 12/28/192257 Amoxicillin/Potassium Clav (Amox Tr-K Clv 875-125 mg Tab) 875 Mg-125 Mg Tablet, 1 EACH PO BID Prescribed by: LORRAINE ALVAREZ on 12/24/212114 Cyclobenzaprine HCl (Cyclobenzaprine HCl) 10 Mg Tablet, 10 MG PO Q8H PRN for SPASMS Prescribed by: DES SEXTON on 05/05/212157 Hydroxyzine Pamoate (Vistaril) 50 Mg Capsule, 50 MG PO Q6H PRN for ANXIETY Prescribed by: TERESO MUSE on 10/17/202001 Naproxen (Naprosyn) 500 Mg Tablet, 500 MG PO BID PRN for PAIN-MODERATE (5-7) Prescribed by: TERESO MUSE on 12/28/192257 Naproxen (Naproxen) 500 Mg Tablet.dr, 500 MG PO BID Prescribed by: DES SEXTON on 03/25/212307 Naproxen (Naproxen) 500 Mg Tablet., 500 MG PO BID Prescribed by: DES SEXTON on 10/29/21 2158 Naproxen (Naprosyn) 500 Mg Tablet, 500 MG PO BID Prescribed by: RIGO LUIS on 02/24/23 1115 Paroxetine HCl (Paroxetine HCl) 30 Mg Tablet, (Reported) Entered as Reported by: TANNER KNOX on 02/15/19 0027 Prednisone (Prednisone) 10 Mg Tab.ds.pk, 10 MG PO DAILY Prescribed by: RIGO LUIS on 02/24/23 1115 Propranolol HCl (Propranolol HCl) 40 Mg Tablet, (Reported) Entered as Reported by: TANNER KNOX on 02/15/19 002 Tramadol HCl (Tramadol HCl) 50 Mg Tablet, 1 TAB PO UD, (Reported) Entered as Reported by: TANNER KNOX on 10/16/162021 Review of Systems Constitutional: see HPI EENTM: no symptoms reported Respiratory: no symptoms reported Cardiovascular: no symptoms reported Gastrointestinal: no symptoms reported Genitourinary: no symptoms reported Musculoskeletal: joint pain (right shoulder) Skin: no symptoms reported All Other Systems Reviewed Negative Unless Noted: Yes Past Inngwfu-Sosjds-Nbniiz Hx Patient Social History Tobacco Use?: No Smoking Status: Never a Smoker Smokeless Tobacco Frequency: Current Everyday User Use of E-Cig and/or Vaping dev: No Use of E-Cig and/or Vaping Christophe: Never a User Substance use?: No Alcohol Use?: No Pt feels they are or have been: No Immunizations Up To Date Tetanus Booster (TDap): Less than 5yrs First/Initial COVID19 Vaccinat: 12/26 Second COVID19 Vaccination Don: 2020 Third COVID19 Vaccination Date: 12/26 Seasonal Allergies Seasonal Allergies: No Past Medical History Surgery/Hospitalization HX: HERNIA REPAIR, NOSE SURGERY DEPRESSION Surgeries: Yes (HERNIA REPAIR) Abdominal, Nose Respiratory: No Cardiac: Yes (NO MEDICATIONS X 5 MONTHS, PER PT 03/25/21) Hypertension Neurological: No Reproductive Disorders: No Genitourinary: No Gastrointestinal: No Musculoskeletal: Yes Arthritis, Chronic Back Pain Endocrine: No HEENT: Yes (NOSE SURGERY) Cancer: No Psychosocial: Yes Anxiety, Bipolar, Depression Integumentary: No Blood Disorders: No Family Medical History Patient reports no known family medical history. No Pertinent Family Hx Physical Exam Vital Signs Vital Signs - First Documented 02/24/23 10:51 Temp 36.8 Pulse 74 Resp 17 B/P (MAP) 127/88 (101) O2 Delivery Room Air Capillary Refill : Height, Weight, BMI Height: 5'9.00" Weight: 240lbs. oz. 108.549536by; 33.00 BMI Method:Stated General Appearance: WD/WN, no apparent distress, obese HEENT: PERRL/EOMI Cardiovascular: regular rate, rhythm Respiratory: lungs clear, normal breath sounds, no respiratory distress, no accessory muscle use, other (tenderness to palpation of the right anterior chest wall over the pectoralis muscle) Shoulder: normal inspection, limited ROM, pain, soft tissue tenderness (lateral (short) arm of the bicels tendon and around the AC space. + empty can test. Normal strength and sensation to the RUE. distal pulses intact.) Elbow/Forearm: normal inspection, non-tender, no evidence of injury, normal ROM Wrist: Yes normal inspection, Yes non-tender, Yes no evidence of injury, Yes normal ROM Hand: normal inspection, non-tender, no evidence of injury, normal ROM, Right Neurologic/Tendon: normal sensation, normal motor functions, other (normal strength and sensation to all muscle groups of RUE) Neurologic/Psychiatric: alert, normal mood/affect, oriented x 3 Skin: normal color, warm/dry Procedures/Interventions Suture Size: 4-0 Progress/Results/Core Measures Results/Orders My Orders Orders - RIGO LUIS MD Ketorolac Injection (Ketorolac Injection (02/24/23 11:15) Medications Given in ED Current Medications Medications Dose Ordered Sig/Rekha Route Start Time Stop Time Status Last Admin Dose Admin Ketorolac Tromethamine 30 mg ONCE ONCE IM 02/24/23 11:15 02/24/23 11:16 DC 02/24/23 11:14 30 MG Vital Signs/I&O 02/24/23 10:51 Temp 36.8 Pulse 74 Resp 17 B/P (MAP) 127/88 (101) O2 Delivery Room Air Departure Impression Primary Impression: Tendonitis of shoulder, right Disposition: 01 HOME, SELF-CARE Condition: Stable Departure-Patient Inst. Decision time for Depature: 11:12 Referrals: [facility] (PCP/Family) Primary Care Physician Patient Instructions: Shoulder Tendinopathy (DC) Add. Discharge Instructions: Ice packs to the right shoulder, alternate with heat. Apply for 20 minutes at a time every 3 hours. Prednisone as prescribed over the next week. Take the naproxen for pain, 1 pill twice a day for 7 days. You should take an over the counter Acid Janitor Custodian - such as Pepcid or generic (Famotidine) twice a day while taking the Naproxen and the steroid. If you have any new, emergent or concerning symptoms - please return to the Emergency Department for re-evaluation. Follow up with your primary care doctor for further management fci of your shoulder issue. Scripts Prednisone (Prednisone) 10 Mg Tab.ds.pk 10 MG PO DAILY, #21 EA Take 6 tabs(60mg)daily,decrease by 1 tab(10MG)daily. Prov: RIGO LUIS MD 02/24/23 Naproxen (Naprosyn) 500 Mg Tablet 500 MG PO BID for 7 Days, #14 TAB 0 Refills Prov: RIGO LUIS MD 02/24/23 Copy Copies To 1: BINDU GREEN KATHRYN M MD Feb 24, 2023 10:59
[2023-02-24] MEDS ORDERED: PRED10TA22 PO (11:15)
[2023-02-24] MEDS ORDERED: NAPR-1071 PO (11:15)
[2023-02-24] MEDS ORDERED: KETOROLAC INJ 30 MG/ML VIAL IM ONE (11:15)
[2023-02-24 11:19] VITALS: BP 133/86
== END 2023-02-24 11:19 | disposition home or self-care (01) ==
LOC: EDUNIT# 10:45 → ER 10:48
DX: M77.8 Other enthesopathies, not elsewhere classified (principal); F17.200 Nicotine dependence, unspecified, uncomplicated
CPT/HCPCS: 99284

== ENCOUNTER 2023-04-22 20:04 | Emergency (ER) | payer MEDICAID ==
[~2023-04-22] VITALS: Ht 177.8 cm; Wt 122.5 kg
[~2023-04-22 20:04] MED LIST changes: +PRED10TA22 PO
[2023-04-22] MEDS ORDERED: TETRACAINE 0.5% OPHTH SOLN 5 ML BTL OP ONE (21:00)
[2023-04-22] MEDS ORDERED: FLUORESCEIN 1 MG OPHTHALMIC STRIPS OP ONE (21:00)
[2023-04-22] MEDS ORDERED: TETRACAINE 0.5% OPHTH SOLN 4 ML BTL (SINGLE DOSE ONLY) ONE (21:03)
[2023-04-22] MEDS ORDERED: Tetanus/Diphtheria/Pertussis (Acell) ADULT Vaccine 0.5 ML IM ONE (21:15)
--- NOTE | 2023-04-22 21:15 | ED EENT ---
History of Present Illness General Chief Complaint: Eye Problems Stated Complaint: LEFT EYE PAIN Nursing Triage Note: PT AMB TO TRIAGE W C/O LEFT EYE PAIN SX 1800 WHEN HE WAS WORKING ON A CAR AND SOMETHING WENT IN TO HIS EYE WHEN HE WAS LOOSENING A BOLT/NUT. PT A&OX4, REDNESS NOTED. Source: patient Exam Limitations: no limitations (BRET CALLE) History of Present Illness Date Seen by Provider: Apr 22, 2023 Time Seen by Provider: 21:13 Initial Comments Patient is a 32-year-old male presents ED for potential foreign body in his left eye. Patient states around 4:30 AM he was removing bolts off a car wheel. Patient states he was underneath felt something hit his left eye. Since then he is having burning sensation and pain to the left eye. Denies loss of vision. States he irrigated with water without any improvement. Patient is not up-to-date on his tetanus. Denies of any visual loss, pain with eye movement. States his eye looks red and reports some clear drainage. (BRET CALLE) Allergies and Home Medications Allergies Coded Allergies: Natan Known Allergies (Verified Allergy, Unknown, 11/04/05) Patient Home Medication List Home Medication List Reviewed: Yes (BRET CALLE) Amoxicillin (Amoxicillin) 500 Mg Capsule, 500 MG PO TID Prescribed by: TERESO MUSE on 12/28/192257 Amoxicillin/Potassium Clav (Amox Tr-K Clv 875-125 mg Tab) 875 Mg-125 Mg Tablet, 1 EACH PO BID Prescribed by: LORRAINE ALVAREZ on 12/24/212114 Cyclobenzaprine HCl (Cyclobenzaprine HCl) 10 Mg Tablet, 10 MG PO Q8H PRN for SPASMS Prescribed by: DES SEXTON on 05/05/212157 Hydroxyzine Pamoate (Vistaril) 50 Mg Capsule, 50 MG PO Q6H PRN for ANXIETY Prescribed by: TERESO MUSE on 10/17/202001 Naproxen (Naprosyn) 500 Mg Tablet, 500 MG PO BID PRN for PAIN-MODERATE (5-7) Prescribed by: TERESO MUSE on 12/28/192257 Naproxen (Naproxen) 500 Mg Tablet.dr, 500 MG PO BID Prescribed by: DES SEXTON on 9/18/21 2308 Naproxen (Naproxen) 500 Mg Tablet.dr, 500 MG PO BID Prescribed by: DES SEXTON on 05/05/212157 Naproxen (Naprosyn) 500 Mg Tablet, 500 MG PO BID Prescribed by: RIGO LUIS on 02/24/23 111 Paroxetine HCl (Paroxetine HCl) 30 Mg Tablet, (Reported) Entered as Reported by: TANNER KNOX on 02/15/19 002 Prednisone (Prednisone) 10 Mg Tab.ds.pk, 10 MG PO DAILY Prescribed by: RIGO LUIS on 02/24/23 111 Propranolol HCl (Propranolol HCl) 40 Mg Tablet, (Reported) Entered as Reported by: TANNER KNOX on 02/15/1926 Tramadol HCl (Tramadol HCl) 50 Mg Tablet, 1 TAB PO UD, (Reported) Entered as Reported by: TANNER KNOX on 10/16/162021 Review of Systems Review of Systems Constitutional: No chills, No diaphoresis Eyes: Blurred Vision, Drainage, Foreign Body Sensation, Inflammation, Pain Ears: Denies Dizziness, Denies Pain Nose: denies clots, denies congestion Mouth: denies clots, denies loose teeth Throat: denies pain, denies swelling Respiratory: No cough, No dyspnea on exertion Cardiovascular: No chest pain, No edema Gastrointestinal: No abdominal pain, No diarrhea, No nausea, No vomiting Musculoskeletal: No back pain, No joint pain (BRET CALLE) Past Olqrzyl-Sasxab-Lmmduc Hx Patient Social History Tobacco Use?: No Use of E-Cig and/or Vaping dev: No Substance use?: No Alcohol Use?: No (BRET CALLE) Immunizations Up To Date Tetanus Booster (TDap): Less than 5yrs First/Initial COVID19 Vaccinat: 12/26 Second COVID19 Vaccination Don: 2020 Third COVID19 Vaccination Date: 12/26 (BRET CALLE) Seasonal Allergies Seasonal Allergies: No (BRET CALLE) Past Medical History Surgery/Hospitalization HX: HERNIA REPAIR, NOSE SURGERY DEPRESSION Surgeries: Yes (HERNIA REPAIR) Abdominal, Nose Respiratory: No Cardiac: Yes (NO MEDICATIONS X 5 MONTHS, PER PT 03/25/21) Hypertension Neurological: No Reproductive Disorders: No Genitourinary: No Gastrointestinal: No Musculoskeletal: Yes Arthritis, Chronic Back Pain Endocrine: No HEENT: Yes (NOSE SURGERY) Cancer: No Psychosocial: Yes Anxiety, Bipolar, Depression Integumentary: No Blood Disorders: No (BRET CALLE) Family Medical History Patient reports no known family medical history. No Pertinent Family Hx (BRET CALLE) Physical Exam Vital Signs Vital Signs - First Documented 04/22/23 20:15 Temp 36.7 Pulse 90 Resp 18 B/P (MAP) 154/94 (114) Pulse Ox 100 O2 Delivery Room Air (CARLIE,DES K DO) Height, Weight, BMI Height: 5'9.00" Weight: 240lbs. oz. 108.333951hr; 38.00 BMI Method:Stated General Appearance: WD/WN, no apparent distress Eyes: left eye other (Left upper corneal abrasion with uptake. Negative Star sign. No foreign body. Erythematous injection. Pupils react to light. 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, no motor/sensory deficits, alert, normal mood/affect Skin: normal color, warm/dry (BRET CALLE) Procedures/Interventions Suture Size: 4-0 (BRET CALLE) Progress/Results/Core Measures Results/Orders Medications Given in ED Current Medications Medications Dose Ordered Sig/Rekha Route Start Time Stop Time Status Last Admin Dose Admin Fluorescein Sodium ONCE ONCE OP 04/22/23 21:00 04/22/23 21:01 DC 04/22/23 21:25 1 MG Polymyxin/ Trimethoprim Sulfate 1 ml ONCE ONCE OP 04/22/23 21:45 04/22/23 21:48 DC 04/22/23 21:43 1 ML Tetracaine HCl 4 ml STK-MED ONCE .ROUTE 04/22/23 21:03 04/22/23 21:05 DC 04/22/23 21:26 4 ML (DES SEXTON DO) Vital Signs/I&O 04/22/23 04/22/23 20:15 21:51 Temp 36.7 36.7 Pulse 90 90 Resp 18 18 B/P (MAP) 154/94 (114) 154/94 Pulse Ox 100 100 O2 Delivery Room Air Room Air (DES SEXTON DO) Blood Pressure Mean: 114 Departure Communication (PCP) Patient presents ED with injury to his left eye. On exam patient has a e rythematous injection. Pupils reactive light extraocular was intact. Blurry vision. Visual acuity left eye was 20/20, right eye 20/40 bilateral 20/20. No visual loss but reports some blurry vision. Up-to-date on his tetanus. Eye exam with tetracaine and fluorescein eye strip noted a corneal abrasion to the upper half of the cornea. No obvious foreign body. Irrigated with normal saline 100 mils. Patient pain improved with the tetracaine. Negative Star sign. No evidence of globe rupture. At this time will discharge with Polytrim. Provided optometry outpatient follow-up in the next 1 to 2 days for reevaluation. If any worsening visual changes to return back to ED. (BRET CALLE) Impression Primary Impression: Corneal abrasion Disposition: 01 HOME, SELF-CARE Condition: Stable Departure-Patient Inst. Decision time for Depature: 21:31 (BRET CALLE) Referrals: [facility] (PCP/Family) Primary Care Physician RADHA CAGLE OD Patient Instructions: Corneal Abrasion ED ATTENDING PHYSICIAN NOTE: I WAS PHYSICALLY PRESENT ER PHYSICIAN, BUT I WAS NOT INVOLVED IN ANY DECISION MAKING OR ANY CARE OF THIS PATIENT, AND I AM NOT COLLABORATING PHYSICIAN. (DES SEXTON DO) BRET CALLE Apr 22, 2023 21:15 DES SEXTON DO Apr 23, 2023 05:18
[2023-04-22] MEDS ORDERED: RX-POLY/TRIMETH (POLYTRIM) OP 10 ML BTL OP ONE (21:45)
[2023-04-22 21:51] VITALS: BP 154/94
== END 2023-04-22 21:51 | disposition home or self-care (01) ==
LOC: EDUNIT# 20:04 → ER 20:07
DX: S05.02XA Injury of conjunctiva and corneal abrasion without foreign body, left eye, initial encounter (principal); W22.8XXA Striking against or struck by other objects, initial encounter
CPT/HCPCS: 99282